=== PATIENT | male | born 1965 | race Caucasian/White ===

== ENCOUNTER 2017-04-28 17:09 | Observation (INO) | payer OTHER ==
[2017-04-28 18:57] LABS: Absolute Lymphocytes (CBC) 3.4 K/uL (0.7-4.9); Basophils % 0.7 % (0-1.3); Eosinophils % 1.2 % (0-4.4); Hematocrit 41.8 % (39.6-49.0); MCH 29.1 pg (27.0-35.0); MCV 87.2 fL (80-100); MPV 8.4 fL (7.6-11.3); Monocytes % 8.9 % (3.3-12.3); RBC Red Blood Cell Count 4.79 M/uL (4.33-5.43)
[2017-04-28 19:08] LABS: Protime INR 1.03
--- NOTE | 2017-04-28 19:17 | RAD REPORT ---
EXAM DESCRIPTION: RAD - Chest Single View - 04/28/2017 6:26 pm CLINICAL HISTORY: Chest pain. COMPARISON: 11/25/2009 FINDINGS: Portable technique limits examination quality. The lungs are grossly clear. The heart is normal in size. No displaced fractures. IMPRESSION: No acute intrathoracic process suspected.
[2017-04-28] MEDS ORDERED: ONDANSETRON 4 MG/2 ML VIAL ONE (21:21)
[2017-04-28] MEDS ORDERED: MORPHINE 4 MG/ML SYR ONE ×2 (21:21→23:57)
[2017-04-28 21:29] LABS: Urine Blood NEGATIVE (NEG); Urine Glucose NEGATIVE (NEG); Urine Protein NEGATIVE (NEG); Urine Specific Gravity 1.025 (1.005-1.030)
[2017-04-28] MEDS ORDERED: ASPIRIN 81 MG CHEWABLE TABLET ONE (21:58)
[2017-04-28 22:13] LABS: Albumin 4.3 g/dL (3.2-5.5); Bilirubin Direct 0.1 mg/dL (0-0.2); Bilirubin Total 0.6 mg/dL (0.3-1.2); CKMB Creatine Kinase MB 2.1 ng/ml (0.3-4.0); Magnesium 1.8 mg/dL (1.8-2.5); Potassium 3.4 mEq/L (3.6-5.0); Protein, Total 7.3 g/dL (6.0-8.3)
--- NOTE | 2017-04-28 23:34 | EDPHYS ---
Physician Documentation [facility] Name: Ellis Girard Age: 51 yrs Sex: Male : 1965 Arrival Date: 04/28/2017 Time: 17:12 Bed 5 Private MD: Teto Callahan T ED Physician Palomo Cortes HPI: 04/28 18:17 This 51 yrs old Male presents to ER via Ambulatory with complaints of Chest snw Pain, High Blood Pressure. 18:17 Onset: The symptoms/episode began/occurred 1.5 week(s) ago, and became persistent. snw Associated signs and symptoms: Pertinent positives: insomnia. Modifying factors: the patient symptoms are aggravated by nothing. The patient has experienced a previous episode. The patient has not recently seen a physician. Hx of MVP. Historical: - Allergies: 17:22 Iodine; hj - Home Meds: 17:22 montelukast 10 mg oral tab 1 tab once daily [Active]; etodolac 500 mg Oral tab 1 tab 2 hj times per day [Active]; diazepam 5 mg Oral tab 1 tab nightly [Active]; allopurinol 300 mg Oral tab 1 tab once daily [Active]; gabapentin 600 mg oral tab 1 tab 3 times per day [Active]; lisinopril-hydrochlorothiazide 10-12.5 mg oral tab 1 tab once daily [Active]; - PMHx: 17:22 mitral valve prolapse; Hypertension; Sleep Apnea; hj - PSHx: 17:22 Hernia repair; rotator cuff BL; neck; hj - Immunization history:: Adult Immunizations up to date, Last tetanus immunization: up to date Flu vaccine is not up to date. - Social history:: Smoking status: Patient/guardian denies using tobacco, never smoked, Patient/guardian denies using alcohol. ROS: 18:16 Constitutional: Negative for fever, chills, and weight loss, Eyes: Negative for injury, snw pain, redness, and discharge, ENT: Negative for injury, pain, and discharge, Neck: Negative for injury, pain, and swelling, Abdomen/GI: Negative for abdominal pain, nausea, vomiting, diarrhea, and constipation, Back: Negative for injury and pain, : Negative for injury, bleeding, discharge, and swelling, MS/Extremity: Negative for injury and deformity, Skin: Negative for injury, rash, and discoloration, Neuro: Negative for headache, weakness, numbness, tingling, and seizure. 18:16 Cardiovascular: Positive for chest pain. 18:16 Respiratory: Positive for orthopnea, shortness of breath. Exam: 18:15 Constitutional: This is a well developed, well nourished patient who is awake, alert, snw and in no acute distress. Head/Face: Normocephalic, atraumatic. Eyes: Pupils equal round and reactive to light, extra-ocular motions intact. Lids and lashes normal. Conjunctiva and sclera are non-icteric and not injected. Cornea within normal limits. Periorbital areas with no swelling, redness, or edema. ENT: Nares patent. No nasal discharge, no septal abnormalities noted. Tympanic membranes are normal and external auditory canals are clear. Oropharynx with no redness, swelling, or masses, exudates, or evidence of obstruction, uvula midline. Mucous membranes moist. Neck: Trachea midline, no thyromegaly or masses palpated, and no cervical lymphadenopathy. Supple, full range of motion without nuchal rigidity, or vertebral point tenderness. No Meningismus. Chest/axilla: Normal chest wall appearance and motion. Nontender with no deformity. No lesions are appreciated. Cardiovascular: Regular rate and rhythm with a normal S1 and S2. No gallops, murmurs, or rubs. Normal PMI, no JVD. No pulse deficits. Tenderness to left midaxillary line. Respiratory: Lungs have equal breath sounds bilaterally, clear to auscultation and percussion. No rales, rhonchi or wheezes noted. No increased work of breathing, no retractions or nasal flaring. Abdomen/GI: Soft, non-tender, with normal bowel sounds. No distension or tympany. No guarding or rebound. No evidence of tenderness throughout. Back: No spinal tenderness. No costovertebral tenderness. Full range of motion. Skin: Warm, dry with normal turgor. Normal color with no rashes, no lesions, and no evidence of cellulitis. MS/ Extremity: Pulses equal, no cyanosis. Neurovascular intact. Full, normal range of motion. Neuro: Awake and alert, GCS 15, oriented to person, place, time, and situation. Cranial nerves II-XII grossly intact. Motor strength 5/5 in all extremities. Sensory grossly intact. Cerebellar exam normal. Normal gait. Vital Signs: 17:23 BP 117 / 71; Pulse 95; Resp 18; Temp 97.8(O); Pulse Ox 97% on R/A; Weight 166.01 kg; hj Height 6 ft. 4 in. (193.04 cm); Pain 5/10; 18:15 BP 128 / 80; Pulse 90; Resp 16 S; Pulse Ox 96% on R/A; jl7 19:15 BP 131 / 91; Pulse 84; Resp 18 S; Pulse Ox 99% on R/A; Pain 5/10; ea 20:00 BP 133 / 80; Pulse 81; Resp 19 S; Pulse Ox 99% on R/A; ea 21:00 BP 138 / 87; Pulse 81; Resp 20 S; Pulse Ox 99% on R/A; ea 22:03 BP 128 / 74; Pulse 81; Resp 18; Pulse Ox 98% on R/A; ea 22:34 BP 144 / 82; Pulse 77; Resp 18 S; Pulse Ox 97% on R/A; ea 23:30 BP 132 / 81; Pulse 76; Resp 18; Pulse Ox 97% on R/A; ea 04/29 00:30 BP 132 / 81; Pulse 76; Resp 18 S; Pulse Ox 99% on R/A; ea 01:00 BP 131 / 74; Pulse 81; Resp 18; Pulse Ox 99% on R/A; ea 04/28 17:23 Body Mass Index 44.55 (166.01 kg, 193.04 cm) hj MDM: 04/28 18:10 Patient medically screened. snw 23:34 Data reviewed: vital signs, nurses notes. Data interpreted: Pulse oximetry: on room air snw is 97 %. Interpretation: normal. Counseling: I had a detailed discussion with the patient and/or guardian regarding: the historical points, exam findings, and any diagnostic results supporting the discharge/admit diagnosis, the presence of at least one elevated blood pressure reading (>120/80) during this emergency department visit, lab results, radiology results, the need for further work-up and treatment in the hospital. Physician consultation: Saeed Henson MD was called at 23:35, was contacted at 23:35, regarding admission, to the telemetry unit. 04/28 18:09 Order name: Basic Metabolic Panel snw 04/28 18:09 Order name: BNP [facility] 04/28 18:09 Order name: CBC with Diff [facility] 04/28 18:09 Order name: Ckmb [facility] 04/28 18:09 Order name: CPK [facility] 04/28 18:09 Order name: LFT's [facility] 04/28 18:09 Order name: Magnesium [facility] 04/28 18:09 Order name: PT-INR [facility] 04/28 18:09 Order name: Ptt, Activated [facility] 04/28 18:09 Order name: Troponin (emerg Dept Use Only) [facility] 04/28 18:59 Order name: CBC with Automated Diff; Complete Time: 19:05 EDMS 04/28 19:12 Order name: Protime (+INR); Complete Time: 19:26 EDMS 04/28 19:12 Order name: PTT, Activated Partial Thromb; Complete Time: 19:26 EDMS 04/28 19:27 Order name: BNP B-Type Natriuretic Peptide; Complete Time: 19:27 EDMS 04/28 18:09 Order name: XRAY Chest (1 view) [facility] 04/28 19:18 Order name: RAD; Complete Time: 19:26 EDMS 04/28 20:50 Order name: Urine Dipstick--Ancillary (enter results) 2 04/28 21:30 Order name: Urine Dipstick-Ancillary; Complete Time: 21:37 EDMS 04/28 21:59 Order name: Troponin (Emerg Dept Use Only); Complete Time: 22:08 EDMS 04/28 22:11 Order name: Basic Metabolic Panel; Complete Time: 23:07 EDMS 04/28 22:13 Order name: Liver (Hepatic) Function; Complete Time: 23:07 EDMS 04/28 22:13 Order name: CKMB Creatine Kinase MB; Complete Time: 23:07 EDMS 04/28 22:13 Order name: Magnesium; Complete Time: 23:07 EDMS 04/28 23:07 Order name: Creatine Phosphokinase; Complete Time: 23:07 EDMS 04/28 23:10 Order name: Troponin (emerg Dept Use Only) [facility] 04/29 00:18 Order name: Troponin (Emerg Dept Use Only); Complete Time: 00:19 EDMS 04/28 17:28 Order name: EKG; Complete Time: 17:29 04/28 18:09 Order name: Cardiac monitoring; Complete Time: 18:14 snw 04/28 18:09 Order name: EKG - Nurse/Tech; Complete Time: 18:14 snw 04/28 18:09 Order name: IV Saline Lock; Complete Time: 18:45 snw 04/28 18:09 Order name: Labs collected and sent; Complete Time: 18:14 snw 04/28 18:09 Order name: O2 Per Protocol; Complete Time: 18:14 snw 04/28 18:09 Order name: O2 Sat Monitoring; Complete Time: 18:14 snw 04/28 18:09 Order name: Urine Dipstick-Ancillary (obtain specimen); Complete Time: 21:00 snw 04/28 23:10 Order name: Repeat Cardiac Enzymes at: now; Complete Time: 23:48 snw 04/28 23:10 Order name: EKG; Complete Time: 23:10 snw Administered Medications: 21:05 Drug: morphine 4 mg Route: IVP; Site: right forearm; ea 21:44 Follow up: Response: No adverse reaction; Pain is decreased ea 21:05 Drug: Zofran 4 mg Route: IVP; Site: right forearm; ea 21:45 Follow up: Response: No adverse reaction ea 21:42 Drug: Aspirin Chewable Tablet 324 mg Route: PO; ea 23:13 Follow up: Response: No adverse reaction ea 23:46 Drug: morphine 4 mg Route: IVP; Site: right hand; ea 04/29 01:10 Follow up: Response: No adverse reaction ea Disposition: 07:16 Co-signature as Attending Physician, Palomo Cortes MD I agree with the assessment and kdr plan of care. Disposition: 04/28/17 23:33 Hospitalization ordered by Saeed Henson for Observation. Preliminary diagnosis is Chest pain, unspecified. - Bed requested for Telemetry/MedSurg (observation). - Status is Observation. ea - Condition is Stable. - Problem is new. - Symptoms are unchanged. UTI on Admission? No Signatures: Dispatcher [employer] Erica Cason RN RN kl Rittger, Kevin, MD MD kdr Therrien, Shelly, ESL TEACHER-C ESL TEACHER-Csnw Quang Gomez RN RN Anette Boyle RN RN ea Bryson, James jtb
--- NOTE | 2017-04-28 23:34 | ER ---
Nurse's Notes [facility] Name: Ellis Girard Age: 51 yrs Sex: Male : 1965 Arrival Date: 04/28/2017 Time: 17:12 Bed 5 Private MD: Teto Callahan T Diagnosis: Chest pain, unspecified Presentation: 04/28 17:16 Presenting complaint: Patient states: i have chest pain for more than week now on and hj off, i have hx of mitral valve prolapse, i am short of breath radhames when i walk; reports non radiating pain;. Transition of care: patient was not received from another setting of care. Onset of symptoms was April 28, 2017. Care prior to arrival: None. 17:16 Method Of Arrival: Ambulatory 17:16 Acuity: NATACHA 3 hj Triage Assessment: 17:22 General: Appears in no apparent distress. uncomfortable, Behavior is calm, cooperative, hj appropriate for age. Pain: Complains of pain in chest. Cardiovascular: Capillary refill < 3 seconds Patient's skin is warm and dry. Historical: - Allergies: 17:22 Iodine; hj - Home Meds: 17:22 montelukast 10 mg oral tab 1 tab once daily [Active]; etodolac 500 mg Oral tab 1 tab 2 hj times per day [Active]; diazepam 5 mg Oral tab 1 tab nightly [Active]; allopurinol 300 mg Oral tab 1 tab once daily [Active]; gabapentin 600 mg oral tab 1 tab 3 times per day [Active]; lisinopril-hydrochlorothiazide 10-12.5 mg oral tab 1 tab once daily [Active]; - PMHx: 17:22 mitral valve prolapse; Hypertension; Sleep Apnea; hj - PSHx: 17:22 Hernia repair; rotator cuff BL; neck; hj - Immunization history:: Adult Immunizations up to date, Last tetanus immunization: up to date Flu vaccine is not up to date. - Social history:: Smoking status: Patient/guardian denies using tobacco, never smoked, Patient/guardian denies using alcohol. Screenin:15 Abuse screen: Denies threats or abuse. Denies injuries from another. Nutritional jl7 screening: No deficits noted. Tuberculosis screening: No symptoms or risk factors identified. 18:20 Fall Risk None identified. jtb Assessment: 17:22 Pain: Pain does not radiate. Pain began more than a week;. hj 18:20 General: Appears in no apparent distress. uncomfortable, Behavior is calm, cooperative, jtb appropriate for age. Pain: Complains of pain in mid-sternal area Pain does not radiate. Pain currently is 5 out of 10 on a pain scale. at worst was 7 out of 10 on a pain scale. Quality of pain is described as pressure, Pain began " A couple weeks ago." Is continuous. Neuro: Level of Consciousness is awake, alert, obeys commands, Oriented to person, place, time, situation. Cardiovascular: Heart tones S1 S2 present Patient's skin is warm and dry. Respiratory: Airway is patent Respiratory effort is even, unlabored, Respiratory pattern is regular, symmetrical, Breath sounds are clear bilaterally. GI: No signs and/or symptoms were reported involving the gastrointestinal system. : No signs and/or symptoms were reported regarding the genitourinary system. EENT: No signs and/or symptoms were reported regarding the EENT system. Derm: Skin is intact, Skin is pink, warm \\T\\ dry. Musculoskeletal: Reports weakness in Generalized. 19:10 General: Appears uncomfortable, Behavior is calm, cooperative, appropriate for age. ea Pain: Complains of pain in mid-sternal area Pain does not radiate. Pain currently is 5 out of 10 on a pain scale. Quality of pain is described as pressure, Is continuous. Neuro: Level of Consciousness is awake, alert, obeys commands, Oriented to person, place, time, situation. Cardiovascular: Heart tones S1 S2 present Patient's skin is warm and dry. Respiratory: Airway is patent Respiratory effort is even, unlabored, Respiratory pattern is regular, symmetrical, Breath sounds are clear bilaterally. GI: No signs and/or symptoms were reported involving the gastrointestinal system. Abdomen is round Bowel sounds present X 4 quads. EENT: No signs and/or symptoms were reported regarding the EENT system. Derm: Skin is intact, Skin is pink, warm \\T\\ dry. 20:45 Reassessment: Patient and/or family updated on plan of care and expected duration. Pain ea level reassessed. Patient is alert, oriented x 3, equal unlabored respirations, skin warm/dry/pink. 21:06 Reassessment: Patient and/or family updated on plan of care and expected duration. Pain ea level reassessed. Patient is alert, oriented x 3, equal unlabored respirations, skin warm/dry/pink. 21:27 Reassessment: Pt. reports, "The pain medication has definitely helped; 03/20.". ar4 22:03 Reassessment: Patient and/or family updated on plan of care and expected duration. Pain ea level reassessed. Patient is alert, oriented x 3, equal unlabored respirations, skin warm/dry/pink. 22:34 Reassessment: Patient and/or family updated on plan of care and expected duration. Pain ea level reassessed. Patient is alert, oriented x 3, equal unlabored respirations, skin warm/dry/pink. Patient states feeling better. 04/29 00:04 Reassessment: semi-Hernandez's position, talking with spouse; provided a warm blanket to ar4 spouse at bedside;. 01:06 Reassessment: Patient and/or family updated on plan of care and expected duration. Pain ea level reassessed. Patient is alert, oriented x 3, equal unlabored respirations, skin warm/dry/pink. Patient states symptoms have improved. 01:35 Reassessment: Report called to Irma STEVENSON. ea 01:40 Reassessment: Patient and/or family updated on plan of care and expected duration. Pain ea level reassessed. Patient is alert, oriented x 3, equal unlabored respirations, skin warm/dry/pink. Patient denies pain at this time. Patient states feeling better. Vital Signs: 04/28 17:23 BP 117 / 71; Pulse 95; Resp 18; Temp 97.8(O); Pulse Ox 97% on R/A; Weight 166.01 kg; hj Height 6 ft. 4 in. (193.04 cm); Pain 5/10; 18:15 BP 128 / 80; Pulse 90; Resp 16 S; Pulse Ox 96% on R/A; jl7 19:15 BP 131 / 91; Pulse 84; Resp 18 S; Pulse Ox 99% on R/A; Pain 5/10; ea 20:00 BP 133 / 80; Pulse 81; Resp 19 S; Pulse Ox 99% on R/A; ea 21:00 BP 138 / 87; Pulse 81; Resp 20 S; Pulse Ox 99% on R/A; ea 22:03 BP 128 / 74; Pulse 81; Resp 18; Pulse Ox 98% on R/A; ea 22:34 BP 144 / 82; Pulse 77; Resp 18 S; Pulse Ox 97% on R/A; ea 23:30 BP 132 / 81; Pulse 76; Resp 18; Pulse Ox 97% on R/A; ea 04/29 00:30 BP 132 / 81; Pulse 76; Resp 18 S; Pulse Ox 99% on R/A; ea 01:00 BP 131 / 74; Pulse 81; Resp 18; Pulse Ox 99% on R/A; ea 04/28 17:23 Body Mass Index 44.55 (166.01 kg, 193.04 cm) ED Course: 04/28 17:12 Patient arrived in ED. mr 17:12 Teto Callahan MD is Private Physician. mr 17:17 Triage completed. hj 17:22 Arm band placed on right wrist. hj 17:23 Patient maintains SpO2 saturation greater than 95% on room air. hj 17:35 EKG done, by orthodontic lab technician. reviewed by Palomo Cortes MD. tc 18:[address] RN is Primary Nurse. jl7 18:08 Kaylyn Nazario FNP-C is PHCP. snw 18:08 Palomo Cortes MD is Attending Physician. snw 18:15 Patient has correct armband on for positive identification. Placed in gown. Bed in low jl7 position. Call light in reach. Side rails up X 1. housing assistant property manager on. Pulse ox on. NIBP on. 18:20 Missed attempt(s): 20 gauge in left forearm. 22 gauge in left forearm. jtb 18:26 X-ray completed. Portable x-ray completed in exam room. Patient tolerated procedure la2 well. 18:45 Initial lab(s) drawn, by me, sent to lab. Inserted saline lock: 20 gauge in right hand, jl7 using aseptic technique. Blood collected. 19:01 Report given to ELVA Cheema. jl7 20:21 Urine collected: clean catch specimen, clear. ar4 21:10 Initial lab(s) drawn, by me, sent to lab. ar4 23:33 Saeed Henson MD is Hospitalizing Provider. snw 04/29 00:04 No provider procedures requiring assistance completed. Patient admitted, IV remains in ea place. Administered Medications: 04/28 21:05 Drug: morphine 4 mg Route: IVP; Site: right forearm; ea 21:44 Follow up: Response: No adverse reaction; Pain is decreased ea 21:05 Drug: Zofran 4 mg Route: IVP; Site: right forearm; ea 21:45 Follow up: Response: No adverse reaction ea 21:42 Drug: Aspirin Chewable Tablet 324 mg Route: PO; ea 23:13 Follow up: Response: No adverse reaction ea 23:46 Drug: morphine 4 mg Route: IVP; Site: right hand; ea 04/29 01:10 Follow up: Response: No adverse reaction ea Outcome: 04/28 19:01 Attestation : I agree with everything documented by Wojciech Baird, Student Nurse. jl7 23:33 Decision to Hospitalize by Provider. liz 04/29 00:04 Instructed on the need for admit. ea 01:50 Admitted to Med/surg accompanied by tech, room 216, Report called to Irma STEVENSON ea 01:50 Condition: stable 01:52 Patient left the ED. ea Signatures: Kaylyn Nazario, BRASS BUFFER-C BRASS BUFFER-Csnw Nallely Zarco mr Cespedes, Pricilla, physical therapy attendant EKG Ttc Quang Gomez RN Medhat Castle RN RN allison7 Anette Boyle RN Rosa Galan ea, James jtb Roberts, Amber ar4 Corrections: (The following items were deleted from the chart) 04/28 17:27 17:23 166.01 kg; Height 6 ft. 4 in.; BMI: 44.5; Pain 5/10; hj hj 17:28 17:23 Pulse 95bpm; Resp 18bpm; Pulse Ox 97% RA; Temp 97.8F Oral; 166.01 kg; Height 6 hj ft. 4 in.; BMI: 44.5; Pain 5/10; hj 21:05 21:04 Zofran 4 mg IVP in right antecubital winnie zhou
--- NOTE | 2017-04-29 00:56 | P.HP ---
Certification for Inpatient Patient admitted to: Observation With expected LOS: <2 Midnights Practitioner: I am a practitioner with admitting privileges, knowledge of patient current condition, hospital course, and medical plan of care. Services: Services provided to patient in accordance with Admission requirements found in Title 42 Section 412.3 of the Code of Federal Regulations Patient History Date of Service: 04/29/17 Reason for admission: chest pain History of Present Illness: Mr Girard is a 51 years old male with history of HTN, morbid obesity, sleep apnea, mitral valve prolapse, with recurrent episodes of chest pain. The patient came to ED today since has has had on and off chest pain for about 2 weeks, however, today, the chest pain was more intense, 6/10, and was associated with SOB. The pain is described as pressure like, no radiated. He denied nausea, diaphoresis or palpitations. Initial work up in ED shows normal troponin I level, EKG nos acute ST-T changes. Allergies iodine Allergy (Unverified 10/19/14 07:42) Unknown - Past Medical/Surgical History -: mitral valve prolapse -: HTN -: sleep apnea -: morbid obesity -: Hernia repair; rotator cuff BL; neck - Family History Father History Unknown: Yes -: Heart disease - Social History Smoking Status: Former smoker Alcohol use: No CD- Drugs: No Place of Residence: Home Review of Systems 10-point ROS is otherwise unremarkable Physical Examination - Physical Exam General: Alert, In no apparent distress HEENT: Atraumatic, PERRLA, Mucous membr. moist/pink, EOMI, Sclerae nonicteric Neck: Supple, 2+ carotid pulse no bruit, No LAD, Without JVD or thyroid abnormality Respiratory: Clear to auscultation bilaterally, Normal air movement Cardiovascular: Regular rate/rhythm, Normal S1 S2 Gastrointestinal: Normal bowel sounds, No tenderness Musculoskeletal: No tenderness Integumentary: No rashes Neurological: Normal speech, Normal strength at 5/5 x4 extr, Normal tone, Normal affect Lymphatics: No axilla or inguinal lymphadenopathy - Studies Laboratory Data (last 24 hrs) 04/28/17 21:10: Sodium 136, Potassium 3.4 L, BUN 17, Creatinine 0.92, Glucose 91 , Magnesium 1.8, Total Bilirubin 0.6, AST 23, ALT 25, Alkaline Phosphatase 53 04/28/17 18:41: PT 12.2, INR 1.03, APTT 29.7 04/28/17 18:41: WBC 11.6 H, Hgb 13.9, Hct 41.8, Plt Count 343 04/28/17 18:41: B-Natriuretic Peptide < 10 Assessment and Plan - Problems (Diagnosis) (1) Chest pain Current Visit: Yes Status: Acute Qualifiers: Chest pain type: precordial pain Qualified Code(s): R07.2 - Precordial pain (2) Morbid obesity Current Visit: Yes Status: Acute (3) HTN (hypertension) Current Visit: Yes Status: Acute Qualifiers: Hypertension type: essential hypertension Qualified Code(s): I10 - Essential (primary) hypertension (4) Sleep apnea Current Visit: Yes Status: Acute Qualifiers: Sleep apnea type: obstructive Qualified Code(s): G47.33 - Obstructive sleep apnea (adult) (pediatric) - Plan Mr Girard will be admitted to the hospital due to chest pain in order to rule out ACS. So far Trop I and EKG are within normal limits. Will order serial cardiac anzymes and EKG. Consult Cardiology team. - Advance Directives Does patient have a Living Will: No Does patient have a Durable POA for Healthcare: No - Code Status/Comfort Care Code Status Assessed: Yes Code Status: Full Code
[2017-04-29] MEDS ORDERED: ONDANSETRON 4 MG/2 ML VIAL IV PRN (01:26)
[2017-04-29] MEDS ORDERED: TRAMADOL HCL 50 MG TAB PO PRN (04:48)
--- NOTE | 2017-04-29 07:26 | EKG ---
Test Date: 2017-04-28 Test Time: 17:23:45 Boxing Instructor: DOMINGO MEASUREMENT RESULTS: Intervals: Rate: 95 WI: 198 QRSD: 90 QT: 346 QTc: 434 [place]: P: 33 WI: 198 QRS: 84 T: 58 INTERPRETIVE STATEMENTS: Normal sinus rhythm with sinus arrhythmia Normal ECG Compared to ECG 11/12/2005 14:19:52 No significant changes Electronically Signed On 04-29-17 07:25:27 CDT by Ariel John
[2017-04-29] MEDS ORDERED: GABAPENTIN 300 MG CAP PO SCH (09:00)
[2017-04-29] MEDS ORDERED: ALLOPURINOL 300 MG TAB PO SCH (09:00)
[2017-04-29] MEDS ORDERED: ENOXAPARIN 40 MG/0.4 ML SQ SCH (09:00)
[2017-04-29] MEDS ORDERED: ASPIRIN 81 MG CHEWABLE TABLET PO SCH (09:00)
[2017-04-29] MEDS ORDERED: LISINOPRIL 10 MG TAB PO SCH (09:00)
--- NOTE | 2017-04-29 09:36 | EKG ---
Test Date: 2017-04-28 Test Time: 23:33:07 Supervisor Finishing Room: SARAI MEASUREMENT RESULTS: Intervals: Rate: 77 DE: 224 QRSD: 88 QT: 374 QTc: 423 [place]: P: 26 DE: 224 QRS: 72 T: 45 INTERPRETIVE STATEMENTS: Sinus rhythm with 1st degree AV block Otherwise normal ECG Compared to ECG 04/28/2017 17:23:45 First degree AV block now present Sinus arrhythmia no longer present Electronically Signed On 04-29-17 09:35:45 CDT by Pierce Schilling
--- NOTE | 2017-04-29 09:43 | ECHO ---
HEIGHT: 6 ft 4 in WEIGHT: 366 lb 0 oz DATE OF STUDY: 04/29/[address]: Saeed Caal MD 2-DIMENSIONAL: YES M.MODE: YES DOPPLER: YES COLOR FLOW: YES TDS: NO PORTABLE: NO DEFINITY: NO BUBBLE STUDY: NO DIAGNOSIS: CHEST PAIN CARDIAC HISTORY: CATHERIZATION: NO SURGERY: NO PROSTHETIC VALVE: NO PACEMAKER: NO MEASUREMENTS (cm) DIASTOLIC (NORMALS) SYSTOLIC (NORMALS) IVSd 1.2 (0.6-1.2) LA Diam 4.0 (1.9-4.0) LVEF 68% LVIDd 4.8 (3.5-5.7) LVIDs 2.9 (2.0-3.5) %FS 38% LVPWd 1.1 (0.6-1.2) Ao Diam 3.8 (2.0-3.7) 2 DIMENSIONAL ASSESSMENT: RIGHT ATRIUM: NORMAL LEFT ATRIUM: NORMAL RIGHT VENTRICLE: NORMAL LEFT VENTRICLE: NORMAL TRICUSPID VALVE: NORMAL MITRAL VALVE: NORMAL PULMONIC VALVE: NORMAL AORTIC VALVE: NORMAL PERICARDIAL EFFUSION: NONE AORTIC ROOT: NORMAL LEFT VENTRICULAR WALL MOTION: NORMAL DOPPLER/COLOR FLOW: MILD TRICUSPID REGURGITATION. COMMENTS: MILD TRICUSPID REGURGITATION. NORMAL RIGHT VENTRICULAR SYSTOLIC PRESSURE. NO WALL MOTION ABNORMALITY. NORMAL LEFT VENTRICULAR SIZE AND FUNCTION. NO EFFUSION. TECHNOLOGIST: Gabe EVANS
--- NOTE | 2017-04-29 10:14 | P.DS ---
Admission Date: 04/28/17 Discharge Date: 04/29/17 Primary Care Provider: Dr. Callahan Disposition: ROUTINE DISCHARGE Discharge Condition: GOOD Reason for Admission: chest pain Consultations: Cardiology-Dr. Schilling Procedures: ECHO: EF-68%. Mild tricuspid regurgitation noted. Normal right ventricular systolic pressure. No wall motion abnormality. Normal left ventricular size and function. No effusion noted. - Problems (1) GERD (gastroesophageal reflux disease) Onset Date: 04/29/17 Current Visit: Yes Status: Suspected Qualifiers: Esophagitis presence: esophagitis presence not specified Qualified Code(s) : K21.9 - Gastro-esophageal reflux disease without esophagitis (2) Chronic pain Onset Date: 04/29/17 Current Visit: Yes Status: Chronic Qualifiers: Chronic pain type: chronic pain syndrome Qualified Code(s): G89.4 - Chronic pain syndrome (3) Gout Onset Date: 04/29/17 Current Visit: Yes Status: Chronic Qualifiers: Gout site: unspecified site Gout etiology: unspecified cause Chronicity: chronic Presence of tophus: without tophus Qualified Code(s): M1A.9XX0 - Chronic gout, unspecified, without tophus (tophi) (4) Chest pain Onset Date: 04/29/17 Current Visit: Yes Status: Acute Qualifiers: Chest pain type: precordial pain Qualified Code(s): R07.2 - Precordial pain (5) HTN (hypertension) Onset Date: 04/29/17 Current Visit: Yes Status: Chronic Qualifiers: Hypertension type: essential hypertension Qualified Code(s): I10 - Essential (primary) hypertension (6) Morbid obesity Onset Date: 04/29/17 Current Visit: Yes Status: Chronic (7) Sleep apnea Onset Date: 04/29/17 Current Visit: Yes Status: Chronic Qualifiers: Sleep apnea type: obstructive Qualified Code(s): G47.33 - Obstructive sleep apnea (adult) (pediatric) (8) Hypertriglyceridemia Current Visit: Yes Status: Acute Brief History of Present Illness: 51-year-old male presented emergency room with chest pain. Patient with history of hypertension, obstructive sleep apnea, gout, and chronic pain. Patient was evaluated emergency room. Initial cardiac enzymes unremarkable. Patient was admitted for further evaluation. Hospital Course: During his stay chest pain resolved. Cardiac enzymes were unremarkable. Patient was evaluated by cardiology. Cardiology felt no need for intervention was needed. An echocardiogram showed normal ejection fraction of 68%. Otherwise unremarkable. At discharge patient will continue with aspirin 81 mg daily. Recommendation is for the patient to follow up with cardiology as an outpatient to further monitor. Patient will likely require outpatient stress test or heart catheterization. Chest pain may be GI related. Patient likely has GERD. He is taking nonsteroidal anti-inflammatories. Recommendation is to discontinue nonsteroidal anti-inflammatories if possible. Patient at discharge will start Protonix 40 mg 1 pill once daily. Recommendation is for the patient to follow up with GI as an outpatient to further monitor. Patient may require EGD/colonoscopy as an outpatient. Patient has hypertension. This remained stable during his stay. At discharge patient will continue with lisinopril/hydrochlorothiazide 10/12.5 mg 1 pill daily. Recommendation is to maintain blood pressures less 150/80. Further adjustment can be done by his PCP. Patient has obstructive sleep apnea. Patient will continue with CPAP at night. Patient with history of chronic pain and gout. Patient will continue with gabapentin 600 mg 1 pill 3 times a day. Patient also takes allopurinol 300 mg daily. Recommendation is to not use nonsteroidal anti-inflammatories if possible, this includes Etolodac. Patient was found to have hypertriglyceridemia. Total cholesterol 186, total triglycerides 361, LDL 81. Recommendation to continue with lifestyle modification education and diet. This will need to be monitored as an outpatient. May need to consider medication if no improvement. This can be further addressed by his PCP. Patient is morbidly obese. Lifestyle modification education will be provided. Vital Signs/Physical Exam: Temp Pulse Resp BP Pulse Ox 97.4 F 82 17 133/70 95 04/29/17 08:00 04/29/17 08:00 04/29/17 08:00 04/29/17 08:00 04/29/17 08:00 General: Alert, In no apparent distress, Oriented x3, Cooperative HEENT: Atraumatic, Mucous membr. moist/pink Neck: Supple, No Thyromegaly Respiratory: Clear to auscultation bilaterally, Normal air movement Cardiovascular: Normal pulses, Regular rate/rhythm Gastrointestinal: Normal bowel sounds, Soft and benign, Non-distended, No tenderness, No masses, No rebound, No guarding Musculoskeletal: No contractures, No erythema, No tenderness, No warmth Integumentary: No tenderness/swelling, No erythema, No warmth, No cyanosis Neurological: Normal speech, Normal strength at 5/5 x4 extr, Normal tone, Normal affect Lymphatics: No axilla or inguinal lymphadenopathy Laboratory Data at Discharge: WBC 11.6 K/uL (4.3-10.9) H 04/28/17 18:41 Hgb 13.9 g/dL (13.6-17.9) 04/28/17 18:41 Hct 41.8 % (39.6-49.0) 04/28/17 18:41 Plt Count 343 K/uL (152-406) 04/28/17 18:41 PT 12.2 SECONDS (9.5-12.5) 04/28/17 18:41 INR 1.03 04/28/17 18:41 APTT 29.7 SECONDS (24.3-36.9) 04/28/17 18:41 Sodium 136 mEq/L (135-145) 04/28/17 21:10 Potassium 3.4 mEq/L (3.6-5.0) L 04/28/17 21:10 BUN 17 mg/dL (6-20) 04/28/17 21:10 Creatinine 0.92 mg/dL (0.61-1.24) 04/28/17 21:10 Glucose 91 mg/dL (65-120) 04/28/17 21:10 Magnesium 1.8 mg/dL (1.8-2.5) 04/28/17 21:10 Total Bilirubin 0.6 mg/dL (0.3-1.2) 04/28/17 21:10 AST 23 IU/L (10-42) 04/28/17 21:10 ALT 25 IU/L (10-60) 04/28/17 21:10 Alkaline Phosphatase 53 IU/L (42-121) 04/28/17 21:10 Troponin I < 0.03 ng/mL (<0.03) 04/29/17 01:52 B-Natriuretic Peptide < 10 pg/ml (<=100) 04/28/17 18:41 Home Medications: Allopurinol 300 mg PO DAILY 04/29/17 Aspirin [Aspirin EC 81 MG] 81 mg PO DAILY #30 tablet.dr 04/29/17 Etodolac [Lodine Xl] 500 mg PO BID 04/29/17 Gabapentin 600 mg PO TID 04/29/17 Lisinopril/Hydrochlorothiazide [Lisinopril-Hctz 10-12.5 mg Tab] 1 each PO DAILY 04/29/17 Montelukast [Singulair*] 10 mg PO DAILY 04/29/17 Pantoprazole [Protonix Tab] 40 mg PO DAILY #30 tab 04/29/17 Zolpidem Tartrate [Ambien] 10 mg PO BEDTIME 04/29/17 New Medications: Aspirin [Aspirin EC 81 MG] 81 mg PO DAILY #30 tablet. Pantoprazole [Protonix Tab] 40 mg PO DAILY #30 tab Patient Discharge Instructions: 1. Patient will need a follow up with his PCP in 1 week to follow up this hospitalization. 2. Patient presented with chest pain. Cardiac enzymes unremarkable. Patient evaluated by Cardiology. No intervention was needed. Echocardiogram showed a normal ejection fraction of 60 %. No wall motion abnormality noted. No effusion noted. Recommendation is for the patient to continue with aspirin 81 mg daily. Recommendation is for the patient to follow up with cardiology as an outpatient to further monitor. Patient will likely require outpatient stress test or heart catheterization. Chest pain may be GI related. 3. Patient likely has GERD. He is taking nonsteroidal anti-inflammatories. Recommendation is to discontinue nonsteroidal anti-inflammatories if possible. Patient at discharge will start Protonix 40 mg 1 pill once daily. Recommendation is for the patient to follow up with GI as an outpatient to further monitor. Patient may require EGD/ colonoscopy as an outpatient. 4. Patient has hypertension. At discharge patient will continue with lisinopril/hydrochlorothiazide 10/12.5 mg 1 pill daily. Recommendation is to maintain blood pressures less 150/80. Further adjustment can be done by his PCP. 5. Patient has obstructive sleep apnea. Patient will continue with CPAP at night. 6. Patient with history of chronic pain and gout. Patient will continue with gabapentin 600 mg 1 pill 3 times a day. Patient also takes allopurinol 300 mg daily. Recommendation is to not use nonsteroidal anti-inflammatories if possible, this includes Etolodac. 7. Lifestyle modification education will be provided. 8. Patient with elevated triglycerides. This can be reassessed. Patient continue with lifestyle modification education and diet. Recommendation to recheck fasting lipid panel in 1 month. If still elevated patient may require medication. This can be further addressed by his PCP. Diet: AHA Activity: Ad alberto Time spent managing pt's care (in minutes): 55
[2017-04-29] MEDS ORDERED: ATORVASTATIN 40 MG TAB PO SCH (21:00)
--- NOTE | 2017-05-02 12:19 | CON ---
Date of Consultation: 04/29/2017 I saw the patient on 04/29/2017. Reason For Consultation: Hypertension and chest pain. History Of Present Illness: Mr. Troncoso is a 51-year-old male who has a history of hypertension, mi tral valve prolapse, gout, asthma, neuropathy, sleep apnea, morbid obesity. He weighs 366 pounds. H e is allergic to iodine. He came in with cough and chest pain that has been last for 2 to 3 days, hy pertension has ruled out. By the time I saw him, he had a normal EKG and a normal chest x-ray. Pota ssium 3.4 and white count of 11.6, possible blood loss, but the blood work was negative. Allergies: IODINE. Review of Systems: Negative. Social History: Negative. Family History: Negative. Medications: Include Ambien, Lodine, allopurinol, Neurontin, lisinopril hydrochlorothiazide, and Sin gulair. Physical Examination: Vital Signs: Stable. Weight is 366. HEENT: Negative. Neck: Supple. No bruit. Chest: Clear. Cardiac: Exam revealed an irregular rhythm and rate with an S4 gallop. Abdomen: Obese, but benign. Extremities: Revealed trace edema. Diagnostic Data: As stated above. Impression And Plan: 1.Atypical chest pain, most likely musculoskeletal or gastroesophageal in nature. Echocardiogram is pending. We will see what that shows before discharging him. His weight would not allow him to hav e a stress Cardiolite or a Lexiscan. I think if his symptoms become more suggestive of a cardiac iss ue, a catheterization is the best thing to do. At this point. I do not believe we are dealing with any acute coronary syndrome. If the echo is normal, he can go home. 2.Hypertension, well controlled. 3.Asthma. 4.Gout. 5.History of neuropathy. 6.Morbid obesity. 7.Sleep apnea. NB/MODL Voice ID: [id number] Report ID: [id number]
== END 2017-04-29 11:25 | disposition home or self-care (01) ==
LOC: ER 17:09 → ERHOLD 23:36 → 2ND 04-29 01:23
PROVIDERS: ADMIT Internal Medicine; ATTEND Internal Medicine
DX: R07.2 Precordial pain (principal); I10 Essential (primary) hypertension; M1A.9XX0 Chronic gout, unspecified, without tophus (tophi); G89.29 Other chronic pain; E66.01 Morbid (severe) obesity due to excess calories; Z68.41 Body mass index [BMI] 40.0-44.9, adult; E78.1 Pure hyperglyceridemia; G47.33 Obstructive sleep apnea (adult) (pediatric); I34.1 Nonrheumatic mitral (valve) prolapse
CPT/HCPCS: 36415; 71045; 80048; 80061; 80076; 81003; 82550; 82553; 83735; 83880; 84443; 84484; 85025; 85610; 85730; 93005; 93306; 99285; G0378; J1650; J2405

== ENCOUNTER 2019-02-27 08:18 | Day surgery (SDC) | payer OTHER ==
[2019-02-23 16:28] LABS: Absolute Lymphocytes (CBC) 3.3 K/uL (0.7-4.9); Basophils % 0.5 % (0-1.3); Hematocrit 38.6 % (39.6-49.0); Lymphocytes % 34.7 % (15.3-44.8); MPV 9.2 fL (7.6-11.3); RBC Red Blood Cell Count 4.46 M/uL (4.33-5.43)
[2019-02-23 16:41] LABS: Potassium 3.4 mmol/L (3.5-5.1)
--- NOTE | 2019-02-24 08:09 | EKG ---
Test Date: 2019-02-23 Test Time: 15:33:42 Crisis Clinician: DEMETRIUS MEASUREMENT RESULTS: Intervals: Rate: 73 AR: 216 QRSD: 98 QT: 372 QTc: 409 Ava: P: 88 AR: 216 QRS: 67 T: 29 INTERPRETIVE STATEMENTS: Sinus rhythm with 1st degree AV block Otherwise normal ECG Compared to ECG 04/28/2017 23:33:07 No significant changes Electronically Signed On 02-24-19 08:07:32 RETANNED LEATHER ROLLER by Pierce Schilling
[2019-02-27] MEDS ORDERED: CEFAZOLIN/SWI 1gm 1 GM/10 ML SYR ONE (09:02)
[2019-02-27] MEDS ORDERED: Ringers Lactate 1,000 ML IV ONE (09:02)
[2019-02-27] MEDS ORDERED: MIDAZOLAM HCL 2 MG/2 ML INJ ONE (09:17)
[2019-02-27] MEDS ORDERED: FENTANYL CITR 100 MCG/2 ML ONE (09:50)
[2019-02-27] MEDS ORDERED: propofoL 200 MG/20 ML VIAL IV ONE (09:50)
[2019-02-27] MEDS ORDERED: LIDOCAINE 2% MPF 5 ML VIAL ONE (09:50)
[2019-02-27] MEDS ORDERED: dexAMETHasone 10 MG/ML VIAL ONE (10:08)
[2019-02-27] MEDS ORDERED: KETOROLAC 30 MG/ML INJ ONE (10:40)
--- NOTE | 2019-02-27 11:00 | P.BOP ---
Preoperative diagnosis: Large right upper thigh tender subQ mass Postoperative diagnosis: same Primary procedure: Excisional biopsy of Large right upper thigh deep subQ mass 22x23 cm Marketing Technology Coordinator: Arnulfo Aguilar Estimated blood loss: <10cc Specimen: mass Findings: Large right upper thigh subQ mass down to fascia Anesthesia: General Complications: None Drain(s): MARI drain Transferred to: Recovery Room Condition: Good
[2019-02-27] MEDS ORDERED: TRAMADOL 37.5mg/APAP 325mg PER TAB ONE (11:53)
[2019-02-27 13:52] VITALS: BP 144/76; TEMP 98.1; O2SAT 96
--- NOTE | 2019-02-27 23:38 | OP ---
Date of Procedure: 02/27/2019 Surgeon: Quang Drew MD [employer] Guard: CAMERON Hogue Preoperative Diagnosis: Large right upper thigh tender subcutaneous mass. Postoperative Diagnosis: Large right upper thigh tender subcutaneous mass. Procedure: Excisional biopsy of a large right upper thigh deep, tender, subcutaneous mass, 22 x 23 c m. Estimated Blood Loss: Less than 10 mL. Specimen: Mass. Findings: A large right upper thigh subcutaneous mass down to the fascia. Anesthesia: General plus local. Drain: MARI #10. Indications: This is a case of a male who came with a large mass, increasing in size and discomfort, giving him tenderness. He wants that excised. The benefits, alternatives, and risks of excision fu lly explained to the patient, which include but are not limited to infection, bleeding, damage to adj acent structures, anesthesia complications, seroma, hematoma, OK, or even . He also understands there is chance of recurrence and need for more surgical intervention depending on the final patholo gy. He understood, signed a consent. The area of concern was marked by me and the patient in the ho lding room. Description Of Procedure: The patient was brought to the operating room, placed in supine position. Anesthesia was done without complication. The right thigh area was prepped and draped in a sterile fashion. A time-out was called. An incision was made over the area of the mass. The incision was c arried down to the subcutaneous tissue, and carefully with the help of blunt dissection, we were able to delineate the margins of this mass. This goes all the way down to fascia of the muscle. Muscle seemed not to be involved, but some of the fascia had to be removed with the specimen. Hemostasis wa s obtained at all times. Irrigation was done. The mass was sent to the pathologist. Due to the lar ge cavity, the patient will have a large seroma area and we think he might leak through the incision. So, we left a MARI drain through a different insertion point, secured it in place with 3-0 nylon. Th en, we closed the area with 3-0 chromic, subcutaneous first, and then joseph. Sponge count and inst rument count were correct. The patient tolerated the procedure well. Patient was sent to recovery i n stable condition. HM/MODL Voice ID: [id number] Report ID: [id number]
--- NOTE | 2019-02-27 23:44 | OP ---
Surgeon: Quang Drew MD Diagnosis: Large right upper thigh tender subcutaneous mass. Procedure: Excisional biopsy of large right upper thigh, deep, tender subcutaneous mass, 22 x 23 cm. Disposition: Home. Activity: As tolerated. No heavy lifting. Discharge Instructions: Follow up in my office in 1 week. Call for appointment [phone]. MARI to [facility] bo. Record output every 24 hours. Medications: See orders. HM/MODL Voice ID: [id number] Report ID: [id number]
== END 2019-02-27 12:55 | disposition home or self-care (01) ==
LOC: OR 08:18
PROVIDERS: ATTEND Surgery
PROC: 0JBL0ZZ Excision of Right Upper Leg Subcutaneous Tissue and Fascia, Open Approach (ICD-10-PCS; principal; 2019-02-27 09:45)
DX: D17.23 Benign lipomatous neoplasm of skin and subcutaneous tissue of right leg (principal)
CPT/HCPCS: 93005; 85025; 80048; 36415; 88304; 11406; J2704; J2250; J3010; J1100; J0690; J7120

== ENCOUNTER 2019-12-26 15:40 | Emergency (ER) | payer BC, OTHER ==
[2019-12-26] MEDS ORDERED: dexAMETHasone 10 MG/ML VIAL ONE (16:57)
[2019-12-26 17:28] LABS: Absolute Lymphocytes (CBC) 0.8 K/uL (0.7-4.9); Basophils % 0.5 % (0-1.3); Hematocrit 40.4 % (39.6-49.0); Lymphocytes % 10.9 % (15.3-44.8); RBC Red Blood Cell Count 4.68 M/uL (4.33-5.43)
[2019-12-26 17:44] LABS: Albumin 3.6 g/dL (3.4-5.0); Bilirubin Total 0.4 mg/dL (0.2-1.0); Potassium 3.8 mmol/L (3.5-5.1); Protein, Total 7.7 g/dL (6.4-8.2)
[2019-12-26] MEDS ORDERED: DIPHENHYDRAMINE 50 MG/ML VIAL ONE (17:57)
[2019-12-26] MEDS ORDERED: ACETAMINOPHEN 500 MG TAB ONE (17:57)
[2019-12-26] MEDS ORDERED: FAMOTIDINE 20 MG/2 ML VIAL IV ONE (17:58)
[2019-12-26] MEDS ORDERED: NA CHLORIDE 0.9% 1,000 ML ONE (18:56)
--- NOTE | 2019-12-26 19:01 | RAD REPORT ---
EXAM DESCRIPTION: CT - Chest For Pe Angio - 12/26/2019 6:17 pm CLINICAL HISTORY: Chest pain. chest pain, shortness of breath, covid positive COMPARISON: No comparisons TECHNIQUE: CT angiogram of the pulmonary arteries was performed with MIP. All CT scans are performed using dose optimization technique as appropriate and may include automated exposure control or mA/KV adjustment according to patient size. FINDINGS: No evidence of pulmonary thromboembolism. No acute aortic finding demonstrated. Mild areas of poorly defined ground-glass opacity, greater in the right lung, suggest viral bronchiti s. No significant pericardial or pleural fluid. No concerning bony finding. IMPRESSION: No evidence of pulmonary thromboembolism. Areas of ground-glass opacity bilaterally, greater on the right, suggestive of COVID-19 infection.
--- NOTE | 2019-12-26 19:13 | ER ---
Nurse's Notes [facility] Name: Ellis Girard Age: 54 yrs Sex: Male : 1965 Arrival Date: 12/26/2019 Time: 15:42 Bed 7 Private MD: Diagnosis: Coronavirus infection, unspecified Presentation: 12/25 16:11 Chief complaint: Patient states: SOB and CP for 3 days. Started getting sick 6 days ss ago. Sent by Dr. Callahan for eval/CXR. Coronavirus screen: Client denies travel out of the [place] in the last 14 days. congestion, cough unrelated to allergies, difficulty breathing, fatigue, Client presents with at least one sign or symptom that may indicate coronavirus-19. Standard/surgical mask placed on the client. Client reports previous positive COVID test result. Ebola Screen: Patient denies travel to an Ebola-affected area in the 21 days before illness onset. Initial Sepsis Screen: Does the patient meet any 2 criteria? HR > 90 bpm. No. Patient's initial sepsis screen is negative. Does the patient have a suspected source of infection? Yes: Productive cough/pneumonia. Risk Assessment: Do you want to hurt yourself or someone else? Patient reports no desire to harm self or others. Onset of symptoms was December 24, 2019. 16:11 Method Of Arrival: Ambulatory ss 16:11 Acuity: NATACHA 3 ss Triage Assessment: 18:14 Respiratory: Onset: The symptoms/episode began/occurred the patient has moderate zb shortness of breath. Historical: - Allergies: 16:14 Iodine; ss - PMHx: 16:14 Hypertension; mitral valve prolapse; Sleep Apnea; ss - PSHx: 16:14 Hernia repair; rotator cuff BL; neck; ss - Immunization history:: Flu vaccine is not up to date. - Social history:: Smoking status: Patient denies any tobacco usage or history of. Screenin:32 Abuse screen: Denies threats or abuse. Denies injuries from another. Nutritional zb screening: No deficits noted. Tuberculosis screening: No symptoms or risk factors identified. Fall Risk No fall in past 12 months (0 pts). No secondary diagnosis (0 pts). IV access (20 points). Ambulatory Aid- None/Bed Rest/Nurse Assist (0 pts). Gait- Normal/Bed Rest/Wheelchair (0 pts) Mental Status- Oriented to own ability (0 pts). Total Wilson Fall Scale indicates No Risk (0-24 pts). Assessment: 17:00 General: Appears in no apparent distress. uncomfortable, obese, Behavior is calm, zb cooperative, appropriate for age, Reports chills for fever for feeling ill for fatigue for. Pain: Denies pain. Neuro: Level of Consciousness is awake, alert, obeys commands, Oriented to person, place, time, situation. Cardiovascular: Reports shortness of breath. Respiratory: Reports shortness of breath cough that is non-productive, dry, persistent Airway is patent Trachea midline Respiratory effort is even, unlabored, Respiratory pattern is tachypnea. GI: No signs and/or symptoms were reported involving the gastrointestinal system. : No signs and/or symptoms were reported regarding the genitourinary system. EENT: No signs and/or symptoms were reported regarding the EENT system. Derm: Skin is intact, is healthy with good turgor, Skin is pink, warm \T\ dry. Musculoskeletal: Circulation, motion, and sensation intact. Capillary refill < 3 seconds, is sluggish, in bilateral. 18:00 Reassessment: Patient appears in no apparent distress at this time. Patient and/or zb family updated on plan of care and expected duration. Pain level reassessed. Patient is alert, oriented x 3, equal unlabored respirations, skin warm/dry/pink. 19:00 Reassessment: Patient appears in no apparent distress at this time. Patient and/or zb family updated on plan of care and expected duration. Pain level reassessed. Respiratory: Reports cough that is non-productive, dry, persistent Airway is patent Respiratory effort is even, unlabored, Respiratory pattern is tachypnea. 19:15 Respiratory: Breath sounds are clear. wh 19:22 Cardiovascular: Rhythm is sinus tachycardia. zb Vital Signs: 16:11 BP 156 / 85; Pulse 111; Resp 22; Temp 99.9; Pulse Ox 95% ; Weight 147.42 kg; Height 6 ss ft. 4 in. (193.04 cm); Pain 7/10; 17:00 BP 150 / 86; Pulse 105; Resp 20; Temp 100.2(O); Pulse Ox 97% on R/A; zb 18:00 BP 152 / 86; Pulse 102; Resp 24; Temp 100; Pulse Ox 96% on R/A; zb 19:15 BP 144 / 84; Pulse 100; Resp 20; Pulse Ox 97% on R/A; wh 16:11 Body Mass Index 39.56 (147.42 kg, 193.04 cm) ED Course: 15:42 Patient arrived in ED. as 16:13 Triage completed. ss 16:14 Arm band placed on Patient placed in an exam room, on a stretcher. 16:17 Joe Bell PA is PHCP. m 16:17 Palomo Cortes MD is Attending Physician. jmm 16:42 Jodie Estes RN is Primary Nurse. zb 17:32 Patient has correct armband on for positive identification. Bed in low position. Call zb light in reach. Side rails up X 1. monitoring and evaluation advisor on. Pulse ox on. NIBP on. 17:33 Inserted saline lock: 20 gauge in right hand, using aseptic technique. zb 17:38 Notified Nurse Practitioner and/or Physician Physical Education Instructor of a critical lab result(s), D ss dimer 570. 18:11 Inserted saline lock: 22 gauge in left forearm, using aseptic technique. zb 18:[address] via stretcher. zb 18:18 CT Chest For PE Angio In Process Unspecified. EDMS 19:40 No provider procedures requiring assistance completed. IV discontinued, intact, wh bleeding controlled, No redness/swelling at site. Administered Medications: 17:15 Drug: Decadron - Dexamethasone 10 mg Route: IVP; Site: right hand; zb 18:12 Follow up: Response: No adverse reaction zb 18:10 Drug: Pepcid 20 mg Route: IVP; Site: left forearm; zb 18:49 Follow up: Response: No adverse reaction zb 18:11 Drug: Tylenol 1000 mg Route: PO; zb 18:58 Follow up: Response: No adverse reaction hb 18:11 Drug: diphenhydrAMINE 50 mg Route: IVP; Site: left forearm; zb 18:49 Follow up: Response: No adverse reaction zb 18:49 Drug: NS 0.9% 1000 ml Route: IV; Rate: 1 bolus; Site: right hand; zb Outcome: 19:12 Discharge ordered by . jmm 19:40 Discharged to home ambulatory, with family. 19:40 Condition: stable 19:40 Discharge instructions given to patient, family, Instructed on discharge instructions, follow up and referral plans. medication usage, POC Demonstrated understanding of instructions, follow-up care, medications, POC Prescriptions given X 1. 19:41 Patient left the ED. Signatures: Dispatcher [employer] EDMS Joe Bell PA PA jmm Martinez, Amelia as Smirch, Shelby, RN RN Venus Yanez RN RN Stephanie Ewing Jodie Estes RN RN zb Corrections: (The following items were deleted from the chart) 19:22 18:00 BP 152 / 86; Pulse 102bpm; Resp 24bpm; Pulse Ox 96% RA; zb zb
--- NOTE | 2019-12-26 19:13 | EDPHYS ---
Physician Documentation [facility] Name: Ellis Girard Age: 54 yrs Sex: Male : 1965 Arrival Date: 12/26/2019 Time: 15:42 Bed 7 Private MD: ED Physician Palomo Cortes HPI: 12/25 16:18 This 54 yrs old Male presents to ER via Ambulatory with complaints of jmm Breathing Difficulty - covid+, Chest Pain. 16:18 The patient has shortness of breath at rest. Onset: The symptoms/episode began/occurred jmm gradually, 6 day(s) ago. Duration: The symptoms are continuous, and are steadily getting worse. The patient's shortness of breath has no apparent modifying factors. Associated signs and symptoms: Pertinent positives: chest pain, non-productive cough. This is a 54 year old male with a history of htn, mvp, that presents to the ED with complaints of chest pain, shortness of breath beginning approx 6 days ago. patient recently tested positive for COVID 19. . Historical: - Allergies: 16:14 Iodine; ss - PMHx: 16:14 Hypertension; mitral valve prolapse; Sleep Apnea; ss - PSHx: 16:14 Hernia repair; rotator cuff BL; neck; ss - Immunization history:: Flu vaccine is not up to date. - Social history:: Smoking status: Patient denies any tobacco usage or history of. ROS: 16:18 Constitutional: Positive for body aches, fever. jmm 16:18 Respiratory: Positive for cough, shortness of breath. 16:18 All other systems are negative. Exam: 16:18 Constitutional: This is a well developed, well nourished patient who is awake, alert, jmm and in no acute distress. Head/Face: atraumatic. Eyes: EOMI, no conjunctival erythema appreciated ENT: Moist Mucus Membranes Neck: Trachea midline, Supple Chest/axilla: Normal chest wall appearance and motion. Cardiovascular: Regular rate and rhythm. No edema appreciated Respiratory: Normal respirations, no respiratory distress appreciated Abdomen/GI: Non distended, soft Back: Normal ROM Skin: General appearance color normal MS/ Extremity: Moves all extremities, no obvious deformities appreciated, no edema noted to the lower extremities Neuro: Awake and alert, normal gait Psych: Behavior is normal, Mood is normal, Patient is cooperative and pleasant Vital Signs: 16:11 BP 156 / 85; Pulse 111; Resp 22; Temp 99.9; Pulse Ox 95% ; Weight 147.42 kg; Height 6 ss ft. 4 in. (193.04 cm); Pain 7/10; 17:00 BP 150 / 86; Pulse 105; Resp 20; Temp 100.2(O); Pulse Ox 97% on R/A; zb 18:00 BP 152 / 86; Pulse 102; Resp 24; Temp 100; Pulse Ox 96% on R/A; zb 19:15 BP 144 / 84; Pulse 100; Resp 20; Pulse Ox 97% on R/A; wh 16:11 Body Mass Index 39.56 (147.42 kg, 193.04 cm) ss MDM: 16:18 Patient medically screened. [facility] 19:09 Data reviewed: vital signs, nurses notes. Counseling: I had a detailed discussion with laine the patient and/or guardian regarding: the historical points, exam findings, and any diagnostic results supporting the discharge/admit diagnosis, lab results, radiology results, the need for outpatient follow up, to return to the emergency department if symptoms worsen or persist or if there are any questions or concerns that arise at home. ED course: Patient is alert and non toxic in appearance in the ED. No signs of resp distress. Patient states symptoms are improved. Patient is given strict return precautions. Patient understood and agrees with the plan of care. . 12/25 16:26 Order name: CBC with Diff [facility] 12/25 16:26 Order name: CMP; Complete Time: 18:00 [facility] 12/25 16:26 Order name: D-Dimer; Complete Time: 17:39 [facility] 12/25 16:26 Order name: Procalcitonin; Complete Time: 18:05 [facility] 12/25 16:26 Order name: Lactate; Complete Time: 18:04 [facility] 12/25 16:26 Order name: Blood Culture Adult (2) [facility] 12/25 16:27 Order name: CBC with Automated Diff; Complete Time: 17:34 [facility] 12/25 16:43 Order name: Troponin (emerg Dept Use Only); Complete Time: 18:00 [facility] 12/25 17:39 Order name: CT Chest For PE Angio; Complete Time: 19:03 [facility] 12/25 16:26 Order name: Saline Lock; Complete Time: 18:59 [facility] 12/25 16:43 Order name: EKG - Nurse/Tech; Complete Time: 19:01 [facility] Administered Medications: 17:15 Drug: Decadron - Dexamethasone 10 mg Route: IVP; Site: right hand; zb 18:12 Follow up: Response: No adverse reaction zb 18:10 Drug: Pepcid 20 mg Route: IVP; Site: left forearm; zb 18:49 Follow up: Response: No adverse reaction zb 18:11 Drug: Tylenol 1000 mg Route: PO; zb 18:58 Follow up: Response: No adverse reaction hb 18:11 Drug: diphenhydrAMINE 50 mg Route: IVP; Site: left forearm; zb 18:49 Follow up: Response: No adverse reaction zb 18:49 Drug: NS 0.9% 1000 ml Route: IV; Rate: 1 bolus; Site: right hand; zb Disposition: 12/26 08:30 Co-signature as Attending Physician, Palomo Cortes MD I agree with the assessment and kdr plan of care. Disposition: 12/26/19 19:12 Discharged to Home. Impression: Coronavirus infection, unspecified. - Condition is Stable. - Discharge Instructions: COVID-19. - Prescriptions for Zithromax Z- Chalo 250 mg Oral Tablet - take 1 tablet by ORAL route as directed for 5 days Day 1 - take two (2) tablets one time. Day 2, 3, 4 , 5 take one (1) tablet once daily.; 6 tablet. - Medication Reconciliation Form, Thank You Letter, Antibiotic Education, Prescription Opioid Use form. - Follow up: Private Physician; When: 2 - 3 days; Reason: Recheck today's complaints, Continuance of care, Re-evaluation by your physician. - Notes: Please take 6000 to 96318 IU of vitamin D a day 1000 mg of NAC twice a day 50 mg of Zinc daily 500 mg of Quercetin twice a day Signatures: Dispatcher [employer] EDMS Palomo Cortes MD MD kdr Mickail, Joel, PA PA Amina Astudillo RN RN ss Habalo, Winsy wh Brown, Zipporah, RN RN zb Baxter, Heather RN hb Corrections: (The following items were deleted from the chart) 12/25 19:41 19:12 12/26/2019 19:12 Discharged to Home. Impression: Coronavirus infection, wh unspecified. Condition is Stable. Forms are Medication Reconciliation Form, Thank You Letter, Antibiotic Education, Prescription Opioid Use. Follow up: Private Physician; When: 2 - 3 days; Reason: Recheck today's complaints, Continuance of care, Re-evaluation by your physician. laine
[2019-12-27 03:43] VITALS: BP 152/86; TEMP 100; O2SAT 96
--- NOTE | 2019-12-28 06:08 | EKG ---
Test Date: 2019-12-26 Test Time: 18:56:01 [employer] Tube Bender: DMITRY MEASUREMENT RESULTS: Intervals: Rate: 101 NH: 206 QRSD: 90 QT: 330 QTc: 427 Johnston: P: 23 NH: 206 QRS: 74 T: 20 INTERPRETIVE STATEMENTS: Sinus tachycardia Otherwise normal ECG Compared to ECG 02/23/2019 15:33:42 Sinus rhythm no longer present First degree AV block no longer present Electronically Signed On 12-28-19 06:03:28 [employer] WORK[employer] by Pierce Schilling
== END 2019-12-26 19:41 | disposition home or self-care (01) ==
LOC: ER 15:40
DX: U07.1 COVID-19 (principal); R05 Cough; I10 Essential (primary) hypertension; Z91.048 Other nonmedicinal substance allergy status
CPT/HCPCS: 93005; 87040 ×2; 85025; 36415; 85379; 83605; 84484; 80053; 84145; 71275; 99285; Q9967; J1200; J1100; J7030

== ENCOUNTER 2021-04-17 10:11 | Emergency (ER) | payer OTHER, BC ==
--- OUTSIDE RECORDS SUMMARY | 2021-04-17 10:13 | XMS REPORT | Continuity of Care Document ---
:1965 Author Organization [facility] t Address [address] [place] [address] Care Team Providers Name Role Phone Fermin Callahan Primary Care Physician Alessandra STEVENSON, T Attending Clinician Unavailable Only, Db Test Attending Clinician Unavailable Nat WEBB Attending Clinician Payers Payer Name Policy Type Policy Number Effective Date Expiration Date S ource Problems This patient has no known problems. Allergies, Adverse Reactions, Alerts This patient has no known allergies or adverse reactions. Social History Social Habit Start Date Stop Date Quantity Comments Source Exposure to Not sure [facility] SARS-CoV-2 (event) [facility] Sex Assigned At [birth year] [facility] 00:00:00 00:00:00 [facility] Smoking Status Start Date Stop Date Source Unknown if ever smoked [facility] Medications This patient has no known medications. Immunizations Ordered Filled Immunization Date Status Comments [facility] e Immunization Name Name SARS-COV-2 COVID-19 2020-05-16 Completed Unive rsity of PFIZER VACCINE 00:00:00 [facility] SARS-COV-2 COVID-19 2020-05-16 Completed Unive rsity of PFIZER VACCINE 00:00:00 [facility] SARS-COV-2 COVID-19 2020-04-25 Completed Unive rsity of PFIZER VACCINE 00:00:00 [facility] SARS-COV-2 COVID-19 2020-04-25 Completed Unive rsity of PFIZER VACCINE 00:00:00 [facility] Procedures This patient has no known procedures. Encounters Start End Encounter Admission Attending Care Care Encounter Source Date/Time Date/Time Type Type Clinicians Facility Department ID 2020-11-05 2020-11-05 Letter ANTOINE Aparicio [id number] [facility] 00:00:00 00:00:00 (Out) [facility] [id number] it y of [facility] [id number] Casey as [id number] [address] 2020-11-04 2020-11-04 Laboratory Only, Ang Db Test [place] [id number] [facility] 11:54:55 12:09:55 Only [facility] [id number] ity of [place] [id number] Casey as Bry?Blea [id number] [place] [address] [facility] Results This patient has no known results.
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
[2021-04-17] MEDS ORDERED: Ringers Lactate 1,000 ML IV ONE (11:14)
[2021-04-17 11:27] LABS: Lymphocytes % 22.2 % (15.3-44.8); MPV 7.8 fL (7.6-11.3); RBC Red Blood Cell Count 4.94 M/uL (4.33-5.43)
[2021-04-17] MEDS ORDERED: DIAZEPAM 5 MG TABLET ONE (11:41)
[2021-04-17] MEDS ORDERED: HYDROCODONE/APAP 5/325 MG TAB ONE (11:42)
[2021-04-17 12:06] LABS: Potassium 3.9 mmol/L (3.5-5.1)
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
[2021-04-17 12:52] LABS: Blood Morphology Comment NOT SEEN (NOT SEEN); Platelet Estimate ADEQ
[2021-04-17 13:37] VITALS: BP 136/74; TEMP 98.4; O2SAT 100
== END 2021-04-17 13:25 | disposition home or self-care (01) ==
LOC: ER 10:11
DX: M62.838 Other muscle spasm (principal); M25.551 Pain in right hip; M54.2 Cervicalgia; M54.9 Dorsalgia, unspecified; V59.49XA Driver of pick-up truck or van injured in collision with other motor vehicles in traffic accident, initial encounter; I10 Essential (primary) hypertension; Z91.048 Other nonmedicinal substance allergy status
CPT/HCPCS: 85025; 80048; 36415; 70450; 71250; 72125; 96360; 99285; J7120

== ENCOUNTER 2024-11-10 12:09 | Emergency (ER) | payer BC ==
--- OUTSIDE RECORDS SUMMARY | 2024-11-10 12:13 | XMS REPORT | Continuity of Care Document ---
Author Name Unknown Address [address] [place] [address] [facility] Address [address] [place] [address] Care Team Providers Care Fresh Food Manager Name Role Phone Wayne Quintero Attending Clinician Unavailable Silvia Attending Clinician UnavailWAYNE Lang Attending Clinician Unava ilable FOG_A_Provider Attending Clinician Unavailable Wayne Quintero Admitting Clinician Unavailable Amalia Jamison Cardiology Admitting Clinician Unavailable Silvia Admitting Clinician Unavaila isabel FOG_A_Provider Admitting Clinician Unavailable Payers Payer Name Policy Type Policy Number Effective Date Expirati on Date Source [facility] [id number] Problems Condition Name Condition Details Condition Category Status Onset Date Resolution Date Last Treatment Date Treating Clinician Comments Source Postoperat rolo pain Postoperat rolo Pain Problem Active - 00:00: 00 [facility] Pseudarthr 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 s Pseudarthr osis after Fusion or Arthrodesi s Problem Active 9-12 00:00: 00 [facility] Peroneal tendinitis Peroneal Tendinitis Problem Active 2023-0 7-21 00:00: 00 [facility] Sprain of right ankle Sprain of Right Ankle Problem Active 2021-02 00:00: 00 [facility] Arthritis of right foot Arthritis of Right Foot Problem Active 2021-02 00:00: 00 [facility] Rupture of posterior tibial tendon Rupture of Posterior Tibial Tendon Problem Active 2021-02 00:00: 00 [facility] Arthritis of right ankle Arthritis of Right Ankle Problem Active 2021-02 00:00: 00 [facility] Allergies, Adverse Reactions, Alerts Allergy Name Allergy Type Status Severity Reaction(s) Onset Date Inactive Date Treating Clinician Comments Source Iodinate d Contrast Media DA Active SV ANAPHYLAXIS 2024-0 9-02 00:00: 00 [facility] Iodinate d Contrast Media DA Active SV ANAPHYLAXIS 2024-0 5-08 00:00: 00 [facility] Iodinate d Contrast Media DA Active SV ANAPHYLAXIS 2023-02 2-02 00:00: 00 [facility] Iodinate d Contrast Media DA Active SV ANAPHYLAXIS 2023-0 5-14 00:00: 00 [facility] Iodinate d Contrast Media DA Active SV ANAPHYLAXIS 2022-0 1-16 00:00: 00 [facility] Iodinate d Contrast Media DA Active SV ANAPHYLAXIS 2022-0 1-10 00:00: 00 [facility] Social History Smoking Status Start Date Stop Date Source Never Smoker [facility] Medications Ordered Medication Name Filled Medication Name Start Date Stop Date Current Medication? Ordering Clinician Indication Dosage Frequency Signature (SIG) Comments Components Source hydrocodone 5 mg-acetamin ophen 325 mg tablet Take 1 tablet every 6 hours by oral route. hydrocodone 5 mg-acetamin ophen 325 mg tablet Take 1 tablet every 6 hours by oral route. No 1 Q6H hydrocodon e 5 mg-acetami nophen 325 mg tablet Take 1 tablet every 6 hours by oral route. [facility] meloxicam 15 mg tablet take one tablet daily meloxicam 15 mg tablet take one tablet daily No 1 Q1D meloxicam 15 mg tablet take one tablet daily [facility] methocarbam ol 500 mg tablet Take 1 tablet 3 times a day by oral route. methocarbam ol 500 mg tablet Take 1 tablet 3 times a day by oral route. No 1 TID methocarba mol 500 mg tablet Take 1 tablet 3 times a day by oral route. [facility] Citracal + Vitamin D Maximum 315 mg-6.25 mcg (250 unit) tablet Take 1 tablet every day by oral route for 30 days. Citracal + Vitamin D Maximum 315 mg-6.25 mcg (250 unit) tablet Take 1 tablet every day by oral route for 30 days. No 1 Q1D Citracal + Vitamin D Maximum 315 mg-6.25 mcg (250 unit) tablet Take 1 tablet every day by oral route for 30 days. [facility] hydrocodone 10 mg-acetamin ophen 325 mg tablet Take 1 tablet every 4 hours by oral route as needed. hydrocodone 10 mg-acetamin ophen 325 mg tablet Take 1 tablet every 4 hours by oral route as needed. No 1 Q4H hydrocodon e 10 mg-acetami nophen 325 mg tablet Take 1 tablet every 4 hours by oral route as needed. [facility] fenofibrate 160 mg tablet TAKE 1 TABLET BY MOUTH DAILY fenofibrate 160 mg tablet TAKE 1 TABLET BY MOUTH DAILY No fenofibrat e 160 mg tablet TAKE 1 TABLET BY MOUTH DAILY [facility] gabapentin 600 mg tablet TAKE 1 TABLET BY MOUTH EVERY NIGHT AT BEDTIME gabapentin 600 mg tablet TAKE 1 TABLET BY MOUTH EVERY NIGHT AT BEDTIME No gabapentin 600 mg tablet TAKE 1 TABLET BY MOUTH EVERY NIGHT AT BEDTIME [facility] montelukast 10 mg tablet TAKE 1 TABLET BY MOUTH DAILY montelukast 10 mg tablet TAKE 1 TABLET BY MOUTH DAILY No montelukas t 10 mg tablet TAKE 1 TABLET BY MOUTH DAILY [facility] Mounjaro 12.5 mg/0.5 mL subcutaneou s pen injector INJECT 12.5MG UNDER THE SKIN ONCE A WEEK Mounjaro 12.5 mg/0.5 mL subcutaneou s pen injector INJECT 12.5MG UNDER THE SKIN ONCE A WEEK No Mounjaro 12.5 mg/0.5 mL subcutaneo us pen injector INJECT 12.5MG UNDER THE SKIN ONCE A WEEK [facility] Vital Signs Vital Name Observation Time Observation Value Comments S ource BMI (Body Mass Index) 2023-12-28 00:00:00 48.1 kg/m2 [facility] Height 2023-12-28 00:00:00 76 [in_i] [facility] Body Weight 2023-12-28 00:00:00 395 [lb_av] [facility] Body Weight 2023-10-26 00:00:00 395 [lb_av] [facility] BMI (Body Mass Index) 2023-10-26 00:00:00 48.1 kg/m2 [facility] Height 2023-10-26 00:00:00 76 [in_i] [facility] Height 2023-09-07 00:00:00 76 [in_i] [facility] Body Weight 2023-09-07 00:00:00 395 [lb_av] [facility] BMI (Body Mass Index) 2023-09-07 00:00:00 48.1 kg/m2 [facility] Body Weight 2023-08-10 00:00:00 395 [lb_av] [facility] BMI (Body Mass Index) 2023-08-10 00:00:00 48.1 kg/m2 [facility] Height 2023-08-10 00:00:00 76 [in_i] [facility] Body Weight 2023-03-10 00:00:00 395 [lb_av] [facility] BMI (Body Mass Index) 2023-03-10 00:00:00 48.1 kg/m2 [facility] Height 2023-03-10 00:00:00 76 [in_i] [facility] Procedures Procedure Date / Time Performed Performing Clinicia n Source XR, ankle, 3 or more view 2023-12-28 00:00:[address] [facility] [address], ankle, w/o contrast 2023-12-28 00:00:00 [facility] XR, ankle, 3 or more view 2023-10-26 00:00:00 [facility] XR, ankle, 3 or more view 2023-09-07 00:00:00 [facility] XR, ankle, 3 or more view 2023-08-10 00:00:[address] [facility] [address], ankle, w/o contrast 2023-03-10 00:00:00 [facility] XR, foot, 2 view 2022-05-27 00:00:00 [facility] XR, foot, 2 view 2022-04-10 00:00:00 [facility] XR, foot, 2 view 2022-03-11 00:00:00 [facility] XR, calcaneus, 2 or more view 2022-03-11 00:00:00 [facility] XR, foot, 2 view 2022-01-21 00:00:00 [facility] XR, ankle, 3 or more view 2022-01-21 00:00:00 [facility] Encounters Start Date/Time End Date/Time Encounter Type Admission Type Attending [facility] Care Facility Care Department Encounter ID Source 2022-08-28 15:00:00 Inpatient Wayne VinesTO RADI [id number] [facility] 2022-07-10 15:33:08 Outpatient [facility] [id number] [facility] 2024-10-10 11:21:00 2024-10-10 11:21:00 Outpatient Wayne Vines [facility] RADI [id number] [facility] 2024-06-19 08:07:00 2024-06-19 08:07:00 Outpatient Wayne Vines [facility] SURG [id number] [facility] 2024-06-02 12:12:00 2024-06-02 12:12:00 Outpatient Wayne VinesTO RADI [id number] [facility] 2024-03-29 09:15:00 2024-03-29 09:15:00 Outpatient Wayne Vines [facility] RADI [id number] [facility] 2024-01-11 13:54:00 2024-01-11 13:54:00 Outpatient Wayne VinesTO RADI [id number] [facility] 2023-12-28 11:57:00 2023-12-28 11:57:00 Outpatient Wayne Vines [facility] RADI [id number] [facility] 2023-12-28 00:00:00 2023-12-28 00:00:00 Wayne Quintero MD: [address] [place] [address] , Ph. [phone] [place] [facility] [address] [place] [id number] [facility] 2023-10-26 00:00:00 2023-10-26 00:00:00 Wayne Quintero MD: [address] [place] [address] , Ph. [phone] [place] [facility] [address] [place] [id number] [facility] 2023-09-07 00:00:00 2023-09-07 00:00:00 Wayne Quintero MD: [address] [place] [address] , Ph. [phone] [place] [facility] [address] [place] [id number] [facility] 2023-08-10 00:00:00 2023-08-10 00:00:00 Wayne Quintero MD: [address] [place] [address] , Ph. [phone] [place] [facility] [address] [place] [phone] [id number] [facility] 2023-07-19 11:51:00 2023-07-20 11:28:00 Inpatient Wayne VinesTO SURG [id number] [facility] 2023-07-19 00:00:00 2023-07-19 00:00:00 Wayne Quintero MD: [address] [place] [address] , Ph. [phone] [facility] [place] [facility] [id number] [facility] 2023-05-03 00:00:00 2023-05-03 00:00:00 Outpatient FOG_Kev_ Wayne_ [facility] [id number] [facility] 2023-03-17 11:01:00 2023-03-17 23:59:00 Outpatient WAYNE QUINTERO [facility] [id number] [facility] 2023-03-10 00:00:00 2023-03-10 00:00:00 Wayne Quintero MD: [address] [place] [address] , Ph. [phone] [facility] [place] [facility] [address] [id number] [facility] 2022-09-08 08:19:00 2022-09-08 23:59:[address] [id number] [facility] 2022-05-27 00:00:00 2022-05-27 00:00:00 Wayne Quintero MD: [address] [place] [phone] , Ph. [phone] [facility] [place] [facility] [address] [id number] [facility] 2022-04-10 00:00:00 2022-04-10 00:00:00 Wayne Quintero MD: [address] [place] [phone] , Ph. [phone] [facility] [place] [facility] [address] [id number] [facility] 2022-03-11 00:00:00 2022-03-11 00:00:00 Wayne Quintero MD: [address] [place] [phone] , Ph. [phone] [place] [facility] [address] [id number] [facility] 2022-02-23 12:03:00 2022-02-25 12:20:00 Inpatient Wayne Vines [facility] SURG [id number] [facility] 2022-02-23 00:00:00 2022-02-23 00:00:00 Wayne Quintero MD: [address] [place] [phone] , Ph. [phone] [facility] [place] [facility] [id number] [facility] 2022-01-21 00:00:00 2022-01-21 00:00:00 Wayne Quintero MD: [address] [place] [phone] , Ph. [phone] [facility] [place] [facility] [address] [place] [id number] [facility] Results Test Description Test Time Test Comments Results Result Co mments Source [id number] 09:28:00* Test Item Value Reference Range Interpretation Comme nts GLUBED (test code = GLUBED) 105 mg/dL 60-99 H The normal fasti ng blood glucose range for a non-diabeticadult is 60-99 mg/dL. Two hours after meals, normal blood glucose levels should beless than 140 mg/dL.Please note new normal range. [id number] 09:17:00* Test Item Value Reference Range Interpretation Comme nts glubed (test code = glubed) 105 mg/dL 60-99 H performing lab: (test code = performing lab:) [facility] Medicine[facility] METABOLIC [id number] 13:46:00* Test Item Value Reference Range Interpretation Comme nts SODIUM (test code = NA) 137 mmol/L 136-145 N POTASSIUM (test code = K) 3.9 mmol/L 3.5-5.1 N CHLORIDE (test code = CL) 101.0 mmol/L 98-107 N CARBON DIOXIDE (test code = CO2) 26.8 mmol/L 21-32 N GLUCOSE (test code = GLU) 81 mg/dL 74-106 N BLOOD UREA NITROGEN (test code = BUN) 12 mg/dL 7-18 N GLOMERULAR FILTRATION RATE (test code = GFR) 85.7 >60 The Glomerular Filtration Rate is a calculated parameterbased on serum Creatinine, patient age and sex. GFR valuesless than 60 mL/min/1.73 square meters are indicative ofChronic Kidney Disease. Values less than 15 mL/min/1.73square meters indicate Kidney failure. The calculation forGFR is based on the CKD-EPI (2021) calculation. This formulais race indifferent and is the recommended formula for GFRby the National Kidney Foundation for Adults.The GFR will not calculate if the sex is unknown or if thepatient's age is <18 years. CREATININE (test code = CREAT) 1.02 mg/dL 0.70-1.30 N CALCIUM (test code = CA) 9.1 mg/dL 8.5-10.1 N COMPREHENSIVE METABOLIC [id number] 10:23:00* Test Item Value Reference Range Interpretation Comme nts SODIUM (test code = NA) 139 mmol/L 136-145 N POTASSIUM (test code = K) 4.1 mmol/L 3.5-5.1 N CHLORIDE (test code = CL) 101.0 mmol/L 98-107 N CARBON DIOXIDE (test code = CO2) 27.5 mmol/L 21-32 N GLUCOSE (test code = GLU) 217 mg/dL 70-110 H BLOOD UREA NITROGEN (test code = BUN) 15 mg/dL 7-18 N GLOMERULAR FILTRATION RATE (test code = GFR) 90.5 >60 The Glomerular Filtration Rate is a calculated parameterbased on serum Creatinine, patient age and sex. GFR valuesless than 60 mL/min/1.73 square meters are indicative ofChronic Kidney Disease. Values less than 15 mL/min/1.73square meters indicate Kidney failure. The calculation forGFR is based on the CKD-EPI (2021) calculation. This formulais race indifferent and is the recommended formula for GFRby the National Kidney Foundation for Adults.The GFR will not calculate if the sex is unknown or if thepatient's age is <18 years. CREATININE (test code = CREAT) 0.98 mg/dL 0.55-1.30 N TOTAL PROTEIN (test code = PROT) 7.1 g/dL 6.4-8.2 N ALBUMIN (test code = ALB) 3.7 g/dL 3.4-5.0 N GLOBULIN (test code = GLOB) 3.4 g/dL 2.2-4.2 N ALBUMIN/GLOBULIN RATIO (test code = A/G) 1.1 0.7-2.0 N CALCIUM (test code = CA) 8.7 mg/dL 8.2-10.1 N BILIRUBIN TOTAL (test code = BILT) 0.40 mg/dL 0.2-1.00 N SGOT/AST (test code = AST) 20.0 U/L 15-37 N SGPT/ALT (test code = ALT) 32.0 U/L 12-78 N ALKALINE PHOSPHATASE TOTAL (test code = ALKP) 56 U/L 46-116 N CBC W/AUTO [id number] 09:58:00* Test Item Value Reference Range Interpretation Comme nts WHITE BLOOD CELL (test code = WBC) 8.0 K/mm3 5.7-10.5 N RED BLOOD CELL (test code = RBC) 4.83 M/mm3 4.2-5.4 N HEMOGLOBIN (test code = HGB) 14.4 g/dL 12-16 N HEMATOCRIT (test code = HCT) 41.2 % 37-47 N MEAN CELL VOLUME (test code = MCV) 85 fL 80-98 N MEAN CELL HGB (test code = MCH) 29.8 pg 27-34 N MEAN CELL HGB CONCENTRATION (test code = MCHC) 35.0 g/dL 30.8-34.1 H RED CELL DISTRIBUTION WIDTH (test code = RDW) 13.9 % 11-16 N PLT (test code = PLT) 314 K/mm3 130-400 N MEAN PLATELET VOLUME (test c ode = MPV) 9.6 fL 8.9-12.1 N NEUTROPHIL % (test code = NT%) 56.0 % 45-70 N LYMPHOCYTE % (test code = LY%) 29.0 % 20-40 N MONOCYTE % (test code = MO%) 10.8 % 3-10 H EOSINOPHIL % (test code = EO%) 2.3 % 1-5 N BASOPHIL % (test code = BA%) 0.6 % 0.0-1.1 N NEUTROPHIL # (test code = NT#) 4.49 K/mm3 2.00-7.50 N LYMPHOCYTE # (test code = LY#) 2.32 K/mm3 1.50-4.00 N MONOCYTE # (test code = MO#) 0.86 K/mm3 0.2-0.8 H EOSINOPHIL # (test code = EO#) 0.18 K/mm3 0.04-0.4 N BASOPHIL # (test code = BA#) 0.05 K/mm3 0.02-0.10 N MANUAL DIFF REQUIRED (test c ode = MDIFF) NO MANUAL DIFF NUCLEATED RED BLOOD CELL (te st code = NRBC) 0 % 0-0 N Notes Date/Time Note Provider Source 2024-06-19 12:10:00 [id number] [facility] [address] [place] [address] PATIENT NAME: LAILA MCLEAN ADMIT DATE: 06/19/24 ACCOUNT NO: [id number] ROOM NO: AGE: 58 REPORT TYPE: OPERATIVE REPORT SEX: M ADMITTING PHYSICIAN: ATTENDING PHYSICIAN:Wayne Quintero MD OPERATION DATE: 06/19/2024 PREOPERATIVE DIAGNOSES: 1. Right ankle arthritis. 2. Right ankle pain with synovitis/arthrofibrosis. POSTOPERATIVE DIAGNOSES: 1. Right ankle arthritis. 2. Right ankle pain with synovitis/arthrofibrosis. PROCEDURE: Right ankle arthroscopic debridement, extensive. SURGEON: Wayne Quintero M.D. RESEARCH WORKER KITCHEN: Efrain Espinal DO ANESTHESIA: General and local. BLOOD LOSS: Minimal. SPECIMENS: None. COMPLICATIONS: None. DISPOSITION: The patient was taken to the recovery room in stable condition and discharged home with followup. INDICATIONS FOR PROCEDURE: The patient is a 58-year-old gentleman who has had multiple surgeries to his right hindfoot region. He is complaining of pain mostly at the anterolateral aspect of the ankle region that has become unresponsive to nonoperative management. He presents today electively for the aforementioned procedure. PROCEDURE IN DETAIL: After obtaining the appropriate informed consent, discussing risks and benefits of surgery, the patient was given preoperative antibiotics in the holding area. The correct leg was identified and signed. He was taken to the operating room and placed on the operating table in the supine position. He was placed under general anesthesia by the anesthesiologist without any complications. A tourniquet was placed onto his right thigh. His right leg was placed onto a well-padded leg grier with the hip flexed 45 degrees and the knee flexed to 90 degrees. His right lower extremity was then prepped and draped in a sterile fashion. The leg was elevated, exsanguinated with Esmarch, and the PATIENT NAME: LAILA MCLEAN tourniquet inflated to 300 mmHg. A noninvasive ankle distractor was then utilized. The ankle joint was injected with 10 mL of normal saline through an anteromedial portal site. Next, standard anteromedial and anterolateral ankle arthroscopic portals were made with the skin incised only and blunt dissection through the ankle capsule being careful to protect any neural structures. The ankle joint was then systematically examined arthroscopically using a pump flow system and the 2.7-mm arthroscope. There was some mild chondromalacia in the ankle involving mostly the anterior aspect of the talar dome and the anterior aspect of the distal tibia. This was debrided with a shaver. There was no exposed subchondral bone seen. The syndesmosis was stable to probing. There was some diffuse synovitis and arthrofibrosis involving mostly the anteromedial, anterior and anterolateral aspects of the ankle, which was extensively debrided with a shaver until there were no signs of impingement with ankle dorsiflexion. The ankle joint was then copiously lavaged of all debris and the instruments were removed. The portals were closed with simple nylon suture and infiltrated with 10 mL of 0.5% ropivacaine plain. The wounds were sterilely dressed and he was placed into a well-padded posterior splint. The tourniquet was let down and the toes were well perfused at that time. The patient tolerated the procedure well. He awoke from general anesthesia without any complications. He was placed in his hospital bed and taken to the recovery room in stable condition. He will be discharged home with followup. He will resume his aspirin for DVT prophylaxis. Dictated By: Wayne Quintero MD Date Dictated: 06/19/2024 12:10:20 Date Transcribed: 06/19/2024 12:29:55 MICHAEL/JOEY Receipt ID: [id number] Authenticated by Wayne Quintero MD On 06/20/2024 07:00:07 AM at 0700 PATIENT NAME: LAILA MCLEAN [facility] 2024-06-19 11:09:00 [facility] Brief Op Note REPORT#:[id number] REPORT STATUS: Signed REPORT INITIALIZATION DATE:06/19/24 TIME: 1108 PATIENT: LAILA MCLEAN UNIT #: [id number] ROOM/BED: : 65 AGE: 58 SEX: M ATTEND: Wayne Quintero MD ADM AUTHOR: Wayne Quintero MD REPT SERVICE DT/TIME: 06/19/24 1109 * ALL edits or amendments must be made on the electronic/computer document * Op/Inv Proc Note - Brief Pre-procedure diagnosis: right ankle DJD right ankle impingement Post-procedure diagnosis: same as pre procedure dx Procedures performed: right ankle scope Primary Surgeon: Kev Counting Machine Operator(s): Kylie Findings: right ankle DJD right ankle impingement Complications: none Estimated blood loss in ml's: 10 Specimens removed/altered: none at 1155 RPT #:[id number] [facility] 06:52:00 [facility] Clinical Note REPORT#:[id number] REPORT STATUS: Signed REPORT INITIALIZATION DATE:07/20/23 TIME: 651 PATIENT: LAILA MCLEAN UNIT #: [id number] ROOM/BED: Y304-B : 65 AGE: 57 SEX: M ATTEND: Wayne Quintero MD ADM AUTHOR: Wayne Quintero MD REPT SERVICE DT/TIME: 07/20/23 0652 * ALL edits or amendments must be made on the electronic/computer document * Clinical Note Note: pain under control afebrile VSS RLE--splint intact, +DF/PF toes, LT intact, good cap refill in toes plan--d/c home at 0652 RPT #:[id number] END OF REPORT [facility] 2023-07-19 12:05:00 [id number] [facility] [address] [place] [address] PATIENT NAME: LAILA MCLEAN ADMIT DATE: 07/19/23 ACCOUNT NO: [id number] ROOM NO: Y.304 AGE: 57 REPORT TYPE: OPERATIVE REPORT SEX: M ADMITTING PHYSICIAN:Wayne Quintero MD ATTENDING PHYSICIAN:Wayne Quintero MD OPERATION DATE: 07/19/2023 PREOPERATIVE DIAGNOSIS: Right subtalar fusion nonunion. POSTOPERATIVE DIAGNOSIS: Right subtalar fusion nonunion. PROCEDURES: Right subtalar revision fusion with allograft and iliac crest bone marrow aspirate. SURGEON: Wayne Quintero M.D. RESEARCH WORKER KITCHEN: Schuyler Marcial DO. ANESTHESIA: General plus local. BLOOD LOSS: Minimal. SPECIMENS: None. COMPLICATIONS: None. DISPOSITION: The patient was taken to recovery room in stable condition and then admitted to the observation unit for continued care. INDICATIONS FOR THE PROCEDURE: The patient is a 57-year-old gentleman who is status post a right hindfoot reconstruction. He has healed all these procedures except for the subtalar fusion that has gone on to develop a symptomatic nonunion. He presents today electively for the aforementioned procedures. DESCRIPTION OF PROCEDURE: After obtaining the proper informed consent and discussing risks and benefits of surgery, the patient was given preoperative antibiotics in the holding area. The correct leg was identified and signed. He was taken to the operating room and was placed on the operating table in supine position. He was placed under general anesthesia by the anesthesiologist without any complications. A tourniquet was placed onto his right thigh and he was then placed into the left lateral decubitus position with his extremities and trunk well padded. His right iliac crest and right lower extremity were then prepped and draped in sterile fashion. I then used an 11 gauge bone marrow aspirate needle to obtain bone marrow from the right iliac crest without any complications. The right leg was then elevated, exsanguinated with an Esmarch, and tourniquet was inflated to 300 mmHg. We utilized his previous two posterior heel incisions to remove his previous screws. We then utilized his previous PATIENT NAME: LAILA MCLEAN sinus tarsi incision to gain access to the subtalar joint. There was a clear nonunion. There were no obvious signs of infection. The joint was then debrided of all fibrous tissue. We used a bur and drill to get to healthy-appearing bleeding bone. We then soaked an allograft bone wedge in the bone marrow aspirate. This was then placed into the subtalar joint in the appropriate position. The heel was then held in the appropriate position and the subtalar joint was stabilized with three [place] partially threaded headless cannulated screws with two placed posteriorly and a third one placed at the plantar aspect of the heel up into the talar head. All the screws were placed under radiographic guidance and had good fixation. We then packed some cancellous bone chips into the middle facet/sinus tarsi region to try to improve the fusion rate. The small incisions were then irrigated and closed with nylon suture. The sinus tarsi incision was then closed in the usual fashion in layers. The wounds were infiltrated with 30 mL of 0.5% ropivacaine plain and then sterilely dressed. He was placed into a well-padded posterior splint. The tourniquet was let down and the toes were well perfused at that time. The patient tolerated the procedure well. He awoke from general anesthesia without any complications. He was placed on his hospital bed and taken to recovery room in stable condition where he will be admitted to the observation unit for continued care. Dictated By: Wayne Quintero MD Date Dictated: 07/19/2023 12:05:23 Date Transcribed: 07/19/2023 12:22:49 /FORMERLY [facility] Receipt ID: [id number] Authenticated by Wayne Quintero MD On 07/20/2023 06:55:53 AM at 0655 PATIENT NAME: LAILA MCLEAN [facility] 2023-07-19 10:02:00 [facility] ([facility]) Brief Op Note REPORT#:[id number] REPORT STATUS: Signed REPORT INITIALIZATION DATE:07/19/23 TIME: 1002 PATIENT: LAILA MCLEAN UNIT #: [id number] ROOM/BED: : 65 AGE: 57 SEX: M ATTEND: Wayne Quintero MD ADM AUTHOR: Wayne Quintero MD REPT SERVICE DT/TIME: 07/19/23 1002 * ALL edits or amendments must be made on the electronic/computer document * Op/Inv Proc Note - Brief Pre-procedure diagnosis: right subtalar fusion nonunion Post-procedure diagnosis: same as pre procedure dx Procedures performed: right revision subtalar fusion with ICBG/allgraft Primary Surgeon: Kev Counting Machine Operator(s): Aniket Findings: right subtalar fusion nonunion Complications: none Estimated blood loss in ml's: 25 Specimens removed/altered: none at 1150 RPT #:[id number] END OF REPORT [facility] 2023-06-22 12:25:00 [id number] [place] [address] PATIENT NAME: LAILA MCLEAN ADMIT DATE: ACCOUNT NO: [id number] ROOM NO: AGE: 57 REPORT TYPE: ELECTROCARDIOGRAM SEX: M ADMITTING PHYSICIAN: ATTENDING PHYSICIAN:Wayne Quintero MD Order: [id number] Test Reason : PREOP CLEARANCE H/O HTN Test Date/Time Stamp: WedJun 22 2023 12:25:27 Blood Pressure : / mmHG Vent. Rate : 081 BPM Atrial Rate : 081 BPM P-R Int : 224 ms QRS Dur : 092 ms QT Int : 368 ms P-R-T Axes : 052 077 065 degrees QTc Int : 427 ms Sinus rhythm with 1st degree AV block Otherwise normal ECG When compared with ECG of 17-FEB-2022 10:05, AL interval has increased Confirmed by DELILAH HUERTA MD ([id number]) on 07/14/2023 8:43:05 AM Referred By: Wayne Quintero Confirmed by:DELILAH HUERTA MD PATIENT NAME: LAILA MCLEAN [facility] 2022-02-24 07:02:00 [facility] ([facility]) Clinical Note REPORT#:[id number] REPORT STATUS: Signed DATE:02/24/22 TIME: 0702 PATIENT: STEFAN MCLEAN UNIT #: [id number] ROOM/BED: [address] : 65 AGE: 56 SEX: M ATTEND: Wayne Quintero MD ADM AUTHOR: Wayne Quintero MD * ALL edits or amendments must be made on the electronic/computer document * Clinical Note Note: pain under control afebrile VSS RLE--splint intact, +DF/PF toes, LT intact, good cap refill in toes plan--d/c home at 0703 RPT #:[id number] END OF REPORT [facility] 2022-02-23 17:10:00 [id number] [place] [address] PATIENT NAME: STEFAN MCLEAN ADMIT DATE: 02/23/22 ACCOUNT NO: [id number] ROOM NO: Y.306 AGE: 56 REPORT TYPE: OPERATIVE REPORT SEX: M ADMITTING PHYSICIAN:Wayne Quintero MD ATTENDING PHYSICIAN:Wayne Quintero MD OPERATION DATE: 02/23/2022 PREOPERATIVE DIAGNOSES: 1. Right posterior tibialis tendon dysfunction. 2. Right spring ligament tear. 3. Right hindfoot arthritis. POSTOPERATIVE DIAGNOSES: 1. Right posterior tibialis tendon dysfunction. 2. Right spring ligament tear. 3. Right hindfoot arthritis. PROCEDURES: 1. Right subtalar fusion. 2. Right posterior tibialis tenolysis. 3. Right flexor digitorum longus tendon transfer. 4. Right spring ligament repair/reconstruction. SURGEON: Wayne Quintero MD RESEARCH WORKER KITCHEN: Shubham Quintero MD ANESTHESIA: General plus local. BLOOD LOSS: Minimal. SPECIMENS: None. COMPLICATIONS: None. DISPOSITION: The patient was taken to recovery room in stable condition and then admitted to the observation unit for continued care. INDICATIONS FOR OPERATION: The patient is a 56-year-old gentleman with the aforementioned problems in his right hindfoot region that has become unresponsive to nonoperative management. He has developed a pes planovalgus deformity. Treatment options were discussed in detail and he has elected for the aforementioned procedures as he has become unresponsive to nonoperative management. DESCRIPTION OF OPERATION: After obtaining the proper informed consent and discussing risks and benefits of surgery, the patient was given preoperative PATIENT NAME: STEFAN MCLEAN antibiotics in the holding area. The correct leg was identified and signed. He was taken to the operating room, was placed on the operating table in supine position. He was placed under general anesthesia by the anesthesiologist without any complications. A tourniquet was placed onto his right thigh and a bump was placed under his right hip. His right lower extremity was then prepped and draped in sterile fashion. Leg was elevated and exsanguinated with an Esmarch and the tourniquet was inflated to 300 mmHg. A sinus tarsi approach was then made to the subtalar joint. There were degenerative changes in the joint. The joint was then prepared for fusion, removing all remaining articular cartilage and sclerotic bone. Multiple drill holes were made on either side of the joint after irrigation. We also fish scaled either side of the joint. We then placed ArthroCell graft into the joint to aid in the fusion process. The joint was then stabilized with two Arthrex 7.0 headless screws placed through incisions at the posterior heel. The screws were placed under radiographic guidance correcting the severe hindfoot valgus. The screws appeared to be in good position and there appeared to be good correction of the hindfoot valgus deformity. These wounds were then closed in the usual fashion. After irrigating the posterior wounds, the bump was then removed in order to allow the leg to externally rotate. An incision was made from the medial malleolus just past the navicular. Full thickness flaps were created. The diseased posterior tibialis tendon was then identified. This was taken down off the navicular and transected near the medial malleolus. A healthy flexor digitorum longus tendon was then harvested near the knot of Quang. A whipstitch was placed onto this tendon. There was also noted to be a complete rupture of the spring ligament. This was repaired with #2 FiberWire suture in a [id number] fashion. We then placed an Arthrex internal brace into the sustentaculum teo under radiographic guidance. A bony tunnel was then made from dorsal to plantar at the medial aspect of the navicular. One limb of the internal brace was brought from dorsal to plantar through the tunnel. The other limb was brought out from plantar to dorsal with the flexor digitorum longus tendon. The structures were then tensioned appropriately in the tunnel with a tenodesis screw. We reinforced the tendon transfer with suture into the surrounding periosteum. The foot now appeared to be in good position. It was felt that no Cotton osteotomy would be needed. The medial wound was then irrigated and closed in the usual fashion in layers. The wounds were infiltrated with 30 mL of 0.5% ropivacaine plain and then sterilely dressed. He was placed into a well-padded posterior splint. The tourniquet was let down and the toes were well perfused at that time. The patient tolerated the procedure well. He awoke from general anesthesia without any complications. He was placed on his hospital bed and taken to the recovery room in stable condition where he will be admitted to the observation unit for continued care. Dictated By: Wayne Quintero MD Date Dictated: 02/23/2022 17:10:04 Date Transcribed: 02/23/2022 20:50:46 MICHAEL/AMA/MAMIE Receipt ID: [id number] Authenticated by Wayne Quintero MD On 02/24/2022 06:55:32 AM PATIENT NAME: STEFAN MCLEAN at 0655 PATIENT NAME: STEFAN MCLEAN [facility] 2022-02-23 13:41:00 [facility] Brief Op Note REPORT#:[id number] REPORT STATUS: Signed DATE:02/23/22 TIME: 1341 PATIENT: STEFAN MCLEAN UNIT #: [id number] ROOM/BED: : 65 AGE: 56 SEX: M ATTEND: Wayne Quintero MD ADM AUTHOR: Wayne Quintero MD * ALL edits or amendments must be made on the electronic/computer document * Op/Inv Proc Note - Brief Pre-procedure diagnosis: right PTTD right hindfoot DJD Post-procedure diagnosis: same as pre procedure dx Procedures performed: right ST fusion right hindfoot reconstruction Primary Surgeon: Kev Counting Machine Operator(s): Shofoluwe Findings: right PTTD right hindfoot DJD Complications: none Estimated blood loss in ml's: 25 Specimens removed/altered: right PTT at 1617 RPT #:[id number] END OF REPORT [facility] 2022-02-17 10:05:00 [id number] [address] PATIENT NAME: STEFAN MCLEAN ADMIT DATE: ACCOUNT NO: [id number] ROOM NO: AGE: 56 REPORT TYPE: ELECTROCARDIOGRAM SEX: M ADMITTING PHYSICIAN: ATTENDING PHYSICIAN:Wayne Quintero MD Order: [id number] Test Reason : HTN Test Date/Time Stamp: WedFeb 17 2022 10:05:39 Blood Pressure : / mmHG Vent. Rate : 100 BPM Atrial Rate : 100 BPM P-R Int : 194 ms QRS Dur : 086 ms QT Int : 322 ms P-R-T Axes : 049 080 058 degrees QTc Int : 415 ms Normal sinus rhythm Normal ECG No previous ECGs available Confirmed by DELILAH HUERTA MD ([id number]) on 02/18/2022 3:24:00 PM Referred By: Wayne Quintero Confirmed by:DELILAH HUERTA MD [facility]
[2024-11-10 12:39] LABS: Absolute Lymphocytes (CBC) 2.5 K/uL (0.7-4.9); Hematocrit 46.5 % (39.6-49.0); Hemoglobin 16.1 g/dL (13.6-17.9); MCH 30.1 pg (27.0-35.0); MCHC 34.6 g/dL (32.0-36.0); MCV 86.8 fL (80-100); MPV 7.6 fL (7.6-11.3); Nucleated RBC Absolute Count 0.0 (0-0); Nucleated Red Blood Cells % 0.4 % (0-0); RBC Red Blood Cell Count 5.36 M/uL (4.33-5.43); White Blood Count 9.00 thou/uL (4.3-10.9)
[2024-11-10 12:49] LABS: PT Prothrombin Time 14.0 SECONDS (10-13.0); PTT, Activated Partial Thromb 35.4 SECONDS (27.2-37.4); Protime INR 1.25
--- NOTE | 2024-11-10 12:56 | RAD REPORT ---
EXAMINATION: Head Brain Wo Cont CLINICAL INDICATION: Male, 59 years old.Headache;Dizziness TECHNIQUE: Axial CT images from the skull base to the vertex without intravenous contrast. Coronal an d sagittal reformatted images were created from the data set. One or more of the following dose reduction techniques were used: Automated exposure control, adjustment of the mA and/or kV according to patient size, and/or iterative reconstruction. Unless otherwise specified, incidental findings do not require dedicated imaging follow-up. [id number]. COMPARISON: No prior exams FINDINGS: INTRACRANIAL: No acute intracranial hemorrhage. No acute large vascular territory infarct. No hydroce phalus. No mass effect or midline shift. No significant white matter disease. VASCULATURE: No visualized abnormalities in the arteries or dural venous sinuses. SCALP/SKULL: No calvarial fracture identified. No acute soft tissue abnormality. SINUSES: The visualized paranasal sinuses are mostly clear. No significant mastoid fluid. IMPRESSION: No acute intracranial abnormality.
[2024-11-10 13:04] LABS: ALT/SGPT 23.0 U/L (16-61); AST/SGOT 14.0 U/L (15-37); Albumin 4.2 g/dL (3.4-5.0); Albumin/Globulin Ratio 1.1 (1.1-1.8); Alkaline Phosphatase 52.0 U/L (45-117); Anion Gap 9.7 mEq/L (5.0-15.0); BUN Blood Urea Nitrogen 12.0 mg/dL (7-18); Bilirubin Indirect, Calculated 0.6 mg/dL (0.2-0.8); Globulin 3.7 g/dL (2.3-3.5); Glucose Level 143.0 mg/dL (74-106); Magnesium 2.0 mg/dL (1.6-2.4); Potassium 3.7 mEq/L (3.5-5.1); Troponin High Sensitivity 4.3 pg/mL (<58.9)
--- NOTE | 2024-11-10 13:13 | RAD REPORT ---
EXAMINATION: Head angio CLINICAL INDICATION: Male, 59 years old. pulsating feeling;Headache TECHNIQUE: Axial CT images were obtained through the head after intravenous contrast utilizing angiog raphic protocol with 3D post-processing (maximum intensity projection images, volume rendered images and/or shaded surface rendered images). One or more of the following dose reduction technique s were used: Automated exposure control, adjustment of the mA and/or kV according to patient size, and/or iterative reconstruction. Unless otherwise specified, incidental findings do not require dedic ated imaging follow-up. COMPARISON: No prior exam. FINDINGS: RIGHT: ICA: No aneurysm, stenosis, or occlusion. XIOMARA: No aneurysm, stenosis, or occlusion. MCA: No aneurysm, stenosis, or occlusion. SAFETY INSTRUCTION POLICE OFFICER: No aneurysm, stenosis, or occlusion. LEFT: ICA: No aneurysm, stenosis, or occlusion. XIOMARA: No aneurysm, stenosis, or occlusion. MCA: No aneurysm, stenosis, or occlusion. SAFETY INSTRUCTION POLICE OFFICER: No aneurysm, stenosis, or occlusion. type left SAFETY INSTRUCTION POLICE OFFICER. Vertebrobasilar: The vertebral arteries are patent. The basilar artery is normal in appearance. 3D images confirm these findings. IMPRESSION: No occlusion, aneurysm, or hemodynamically significant stenosis identified.
--- NOTE | 2024-11-10 13:16 | RAD REPORT ---
EXAMINATION: Neck Angio CLINICAL INDICATION: Male, 59 years old. PULSATING FEELING, HEADACHE TECHNIQUE: Axial CT images were obtained from the aortic arch to the skull base after intravenous con trast utilizing angiographic protocol with 3D post-processing (maximum intensity projection images, volume rendered images and/or shaded surface rendered images). One or more of the following dose redu ction techniques were used: Automated exposure control, adjustment of the mA and/or kV according to patient size, and/or iterative reconstruction. Unless otherwise specified, incidental findings do not require dedicated imaging follow-up. [id number]. NASCET criteria used. Mild 0-49% stenosis Moderate 50-69% stenosis Severe 70-99% stenosis COMPARISON: No prior exam. FINDINGS: AORTA: Normal RIGHT: - CCA: No flow limiting stenosis (>= 50%). No dissection. - ICA: No flow limiting stenosis (>= 50%). No dissection. - ECA: No flow limiting stenosis (>= 50%). No dissection. LEFT: - CCA: No flow limiting stenosis (>= 50%). No dissection. - ICA: No flow limiting stenosis (>= 50%). No dissection. - ECA: No flow limiting stenosis (>= 50%). No dissection. VERTEBRAL: Patent SOFT TISSUE: Status post C5-6 ACDF. 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 3D images confirm these findings. IMPRESSION: No arterial dissection or stenosis identified within the neck.
--- NOTE | 2024-11-10 13:20 | ER ---
Nurse's Notes [facility] Name: Ellis Girard Age: 59 yrs Sex: Male : 1965 Arrival Date: 11/10/2024 Time: 12:09 Bed 6 Private MD: Diagnosis: Near syncope, headache Presentation: 11/10 12:22 Chief complaint: Patient states: DIZZINESS, HEADACHE, TUAN EYE PRESSURE AND TIRED dd2 FEELING FOR OVER A MONTH. REPORTS WORSE THIS WEEK, MRI SCHEDULED FOR WEDNESDAY. Coronavirus screen: At this time, the client does not indicate any symptoms associated with coronavirus-19. Ebola Screen: No symptoms or risks identified at this time. Initial Sepsis Screen: Does the patient meet any 2 criteria? No. Patient's initial sepsis screen is negative. Does the patient have a suspected source of infection? No. Patient's initial sepsis screen is negative. Risk Assessment: Do you want to hurt yourself or someone else? Patient reports no desire to harm self or others. Onset of symptoms is unknown. 12:22 Method Of Arrival: Ambulatory dd2 12:22 Acuity: NATACHA 3 dd2 Triage Assessment: 12:24 Headache History: The patient has had previous headaches and this one is more severe dd2 than previous episodes. General: Appears in no apparent distress. uncomfortable, Behavior is calm, cooperative, appropriate for age. Pain: Complains of pain in HEAD Pain currently is 6 out of 10 on a pain scale. Pain began X1 MONTH Also complains of nausea. Neuro: Reports dizziness, headache EYE PRESSURE. Historical: - Allergies: 12:24 Iodine; dd2 - PMHx: 12:24 Hypertension; mitral valve prolapse; Sleep Apnea; Hypercholesterolemia; dd2 - PSHx: 12:24 vertebral replacement; dd2 - Immunization history:: Adult Immunizations up to date. - Infectious Disease History:: Denies. - Social history:: Smoking status: Patient denies any tobacco usage or history of. Screenin:32 [facility] ED Fall Risk Assessment (Adult) History of falling in the last 3 months, jl7 including since admission No falls in past 3 months (0 pts) Confusion or Disorientation No (0 pts) Intoxicated or Sedated No (0 pts) Impaired Gait No (0 pts) Mobility Assist Device Used No (0 pt) Altered Elimination No (0 pt) Score/Fall Risk Level 0 - 2 = Low Risk Oriented to surroundings, Maintained a safe environment. Abuse screen: Denies threats or abuse. Denies injuries from another. Nutritional screening: No deficits noted. Tuberculosis screening: No symptoms or risk factors identified. Assessment: 13:00 General: Appears in no apparent distress. Behavior is calm, cooperative. Pain: Denies cf3 pain. Neuro: [place] Agitation-Sedation Scale (RASS): 0 - Alert and Calm Level of Consciousness is awake, alert, obeys commands, Oriented to person, place, time, situation, Mainstreaming Facilitator are equal bilaterally Moves all extremities. Full function Speech is normal, Facial symmetry appears normal, Pupils are PERRLA, Pupil Size: 3 Intact Reports dizziness, since about 1 month ago. Cardiovascular:. Vital Signs: 12:22 BP 164 / 93; Pulse 91; Resp 17; Temp 98.4; Pulse Ox 98% ; Weight 158.76 kg; Height 6 dd2 ft. 4 in. ; 13:00 BP 125 / 74; Pulse 89; Resp 12; Pulse Ox 97% on R/A; cf3 12:22 Body Mass Index 42.60 (158.76 kg, 193.04 cm) dd2 ED Course: 12:14 Patient arrived in ED. cj3 12:17 Cathy Vanegas MD is Attending Physician. sp3 12:[address] RN is Primary Nurse. jl7 12:24 Triage completed. dd2 12:24 Arm band placed on right wrist. dd2 12:24 EKG done, by ED staff, reviewed by Cathy Vanegas MD. ar8 12:31 Initial lab(s) drawn, by in, sent to lab. Missed attempt(s): 20 gauge in left jl7 antecubital area. Bleeding controlled, band aid applied, catheter tip intact. 12:37 CT Head Brain wo Cont In Process Unspecified. EDMS 12:56 CT Head Angio In Process Unspecified. EDMS 12:57 Neck Angio In Process Unspecified. EDMS 13:00 Patient has correct armband on for positive identification. Bed in low position. Call cf3 light in reach. Side rails up X2. Report received from Srikanth Kimble RN. Client placed on continuous cardiac and pulse oximetry monitoring. NIBP monitoring applied. Door closed. Noise minimized. 13:00 No provider procedures requiring assistance completed. Inserted saline lock: 22 gauge cf3 in left forearm, using aseptic technique. 13:27 IV discontinued, intact, bleeding controlled, No redness/swelling at site. Pressure cf3 dressing applied. Administered Medications: No medications were administered Medication: 12:32 VIS not applicable for this client. jl7 Outcome: 13:19 Discharge ordered by . anil 13:27 Discharged to home ambulatory, cf3 13:27 Condition: stable 13:27 Discharge instructions given to patient, family, Instructed on discharge instructions, follow up and referral plans. Demonstrated understanding of instructions, follow-up care, 13:28 Patient left the ED. cf3 Signatures: Dispatcher [employer] EDMS Medhat St RN RN jl7 Cathy Vanegas MD MD sp3 TIFFANIE ZAMBRANO RN RN dd2 Adelaida Adam 3 Bryson Salgado RN RN cf3 Srikanth Kimble RN RN ar8 Corrections: (The following items were deleted from the chart) 13:20 13:00 Neuro: [place] Agitation-Sedation Scale (RASS): 0 - Alert and Calm Level of cf3 Consciousness is awake, alert, obeys commands, Oriented to person, place, time, situation, Mainstreaming Facilitator are equal bilaterally Moves all extremities. Full function Speech is normal, Facial symmetry appears normal, Pupils are PERRLA, Pupil Size: 3 Intact cf3
--- NOTE | 2024-11-10 13:20 | EDPHYS ---
Physician Documentation [facility] Name: Ellis Girard Age: 59 yrs Sex: Male : 1965 Arrival Date: 11/10/2024 Time: 12:09 Bed 6 Private MD: ED Physician Cathy Vanegas HPI: 11/10 13:11 This 59 yrs old Male presents to ER via Ambulatory with complaints of Dizziness, sp3 Headache, Eye Pain - PRESSURE, Lathargic. 13:11 59-year-old male with history of hypertension, mitral valve prolapse, MICHAEL, sp3 hyperlipidemia presents to the ED for a 1 week history of generalized headache, pulsating sensation, eye pain, and near syncope. Patient has seen ENT who said it was not vertigo and has ordered an outpatient MRI scheduled for next week. Patient was still concerned so he came to the ED for further evaluation or to at least have some comfort prior to that MRI. Patient denies any fever, chest pain, shortness of breath, abdominal pain, nausea, vomiting, diarrhea, full syncope, known sick contacts, travel history, or any other signs or symptoms on ROS at this time. Patient is also recently started TRT.. Historical: - Allergies: 12:24 Iodine; dd2 - PMHx: 12:24 Hypertension; mitral valve prolapse; Sleep Apnea; Hypercholesterolemia; dd2 - PSHx: 12:24 vertebral replacement; dd2 - Immunization history:: Adult Immunizations up to date. - Infectious Disease History:: Denies. - Social history:: Smoking status: Patient denies any tobacco usage or history of. ROS: 13:12 Constitutional: Negative for fever, chills, and weight loss, Eyes: Negative for injury, sp3 pain, redness, and discharge, ENT: Negative for injury, pain, and discharge, Neck: Negative for injury, pain, and swelling, Cardiovascular: Negative for chest pain, palpitations, and edema, Respiratory: Negative for shortness of breath, cough, wheezing, and pleuritic chest pain, Abdomen/GI: Negative for abdominal pain, nausea, vomiting, diarrhea, and constipation, Back: Negative for injury and pain, MS/Extremity: Negative for injury and deformity, Skin: Negative for injury, rash, and discoloration, 13:12 All other systems are negative, Exam: 13:13 Constitutional: This is a well developed, well nourished patient who is awake, alert, sp3 and in no acute distress. Head/Face: Normocephalic, atraumatic. Eyes: Pupils equal round and reactive to light, extra-ocular motions intact. Lids and lashes normal. Conjunctiva and sclera are non-icteric and not injected. Cornea within normal limits. Periorbital areas with no swelling, redness, or edema. ENT: Nares patent. No nasal discharge, no septal abnormalities noted. External auditory canals are clear. Oropharynx with no redness, swelling, or masses, exudates, or evidence of obstruction, uvula midline. Mucous membranes moist. Neck: Trachea midline, no thyromegaly or masses palpated, and no cervical lymphadenopathy. Supple, full range of motion without nuchal rigidity, or vertebral point tenderness. No Meningismus. Chest/axilla: Normal chest wall appearance and motion. Nontender with no deformity. No lesions are appreciated. Cardiovascular: Regular rate and rhythm with a normal S1 and S2. No gallops, murmurs, or rubs. Normal PMI, no JVD. No pulse deficits. Respiratory: Lungs have equal breath sounds bilaterally, clear to auscultation and percussion. No rales, rhonchi or wheezes noted. No increased work of breathing, no retractions or nasal flaring. Abdomen/GI: Soft, non-tender, with normal bowel sounds. No distension or tympany. No guarding or rebound. No evidence of tenderness throughout. Back: No spinal tenderness. No costovertebral tenderness. Full range of motion. Skin: Warm, dry with normal turgor. Normal color with no rashes, no lesions, and no evidence of cellulitis. MS/ Extremity: Pulses equal, no cyanosis. Neurovascular intact. Full, normal range of motion. Neuro: Awake and alert, GCS 15, oriented to person, place, time, and situation. Cranial nerves II-XII grossly intact. Motor strength 5/5 in all extremities. Sensory grossly intact. Cerebellar exam normal. Normal gait. Psych: Awake, alert, with orientation to person, place and time. Behavior, mood, and affect are within normal limits. 13:13 ECG was reviewed by the Attending Physician. EKG demonstrates normal sinus rhythm at 87 bpm with a first-degree AV block with MS interval 212 ms, normal QRS, normal axis and normal ST/T-segment's without evidence of acute ischemia. Vital Signs: 12:22 BP 164 / 93; Pulse 91; Resp 17; Temp 98.4; Pulse Ox 98% ; Weight 158.76 kg; Height 6 dd2 ft. 4 in. ; 13:00 BP 125 / 74; Pulse 89; Resp 12; Pulse Ox 97% on R/A; cf3 12:22 Body Mass Index 42.60 (158.76 kg, 193.04 cm) dd2 MDM: 12:18 Medical Screening Exam initiated sp3 13:14 Data reviewed: vital signs, nurses notes, lab test result(s), EKG, radiologic studies. sp3 ED course: 59-year-old male with near syncope and headache type symptoms. Differential diagnosis includes idiopathic headache, TIA/CVA spectrum, cerebral aneurysm, other intracranial process, testosterone side effect, among others. Workup will include CT scan of the head noncontrast, CT scan of the neck and brain angiogram, general labs, EKG and general supportive care. Vital signs are normal with mild bump in blood pressure at 164/93. Patient is in no acute distress speaking and acting normally and very interactive with staff joking in nature. Disposition pending workup and patient course. If workup is negative, we will safely discharge patient home with next step being his MRI scheduled for next week.. 13:18 ED course: Full workup negative including angiograms. Will safely discharge patient sp3 home at this time.. 11/10 12:26 Order name: Basic Metabolic Panel; Complete Time: 13: 3 11/10 12:26 Order name: CBC with Diff; Complete Time: 13: 3 11/10 12:26 Order name: Hepatic Function; Complete Time: 13: 3 11/10 12:26 Order name: Magnesium; Complete Time: 13:06 3 11/10 12:26 Order name: Protime (+inr); Complete Time: 13:06 3 11/10 12:26 Order name: Ptt, Activated; Complete Time: 13:06 3 11/10 12:26 Order name: Troponin High Sensitivity; Complete Time: 13:06 3 11/10 12:26 Order name: CT Head Brain wo Cont; Complete Time: 13:06 3 11/10 12:37 Order name: CT Head Angio; Complete Time: 13:18 sp3 11/10 12:52 Order name: Neck Angio; Complete Time: 13:18 EDMS 11/10 12:26 Order name: Cardiac monitoring; Complete Time: 12:27 sp3 11/10 12:26 Order name: EKG - Nurse/Tech; Complete Time: 12:27 sp3 11/10 12:26 Order name: IV Saline Lock; Complete Time: 13:06 sp3 11/10 12:26 Order name: Labs collected and sent; Complete Time: 12:32 sp3 11/10 12:26 Order name: NPO; Complete Time: 12:27 sp3 11/10 12:26 Order name: O2 Per Protocol; Complete Time: 12:27 sp3 11/10 12:26 Order name: O2 Sat Monitoring; Complete Time: 12:27 sp3 Administered Medications: No medications were administered Disposition Summary: 11/10/24 13:19 Discharge Ordered Notes: Location: Home sp3 Condition: Stable sp3 Diagnosis - Near syncope, headache sp3 Followup: sp3 - With: Private Physician - When: Upon discharge from the Emergency Department - Reason: Continuance of care Discharge Instructions: - Discharge Summary Sheet sp3 - Near-Syncope sp3 Forms: - Medication Reconciliation Form sp3 - Antibiotic Education sp3 - Prescription Opioid Use sp3 - Patient Portal Instructions sp3 - Leadership Thank You Letter sp3 Signatures: Dispatcher [employer] EDCathy Sweeney MD MD sp3 TIFFANIE ZAMBRANO, RN RN dd2 Bryson Salgado, RN RN cf3 Corrections: (The following items were deleted from the chart) 12:26 12:26 BASIC METABOLIC PANEL+C.LAB.BRZ ordered. EDMS EDMS 12: 12:26 CBC+H.LAB.BRZ ordered. EDMS EDMS 12:26 12:26 HEPATIC FUNCTION+C.LAB.BRZ ordered. EDMS EDMS 12: 12:26 MAGNESIUM+C.LAB.BRZ ordered. EDMS EDMS 12:26 12:26 PROTIME (+INR)+COAG.LAB.BRZ ordered. EDMS EDMS 12:26 12:26 PTT, ACTIVATED+COAG.LAB.BRZ ordered. EDMS EDMS 12:26 12:26 Troponin High Sensitivity+C.LAB.BRZ ordered. EDMS EDMS 12: 12:27 Head Brain Wo Cont+CT.RAD.HARESH ordered. EDMS EDMS 13:13 13:11 59-year-old male with history of hypertension, mitral valve prolapse, MICHAEL, sp3 hyperlipidemia presents to the ED for a 1 week history of generalized headache, pulsating sensation, eye pain, and near syncope. Patient has seen ENT who said it was not vertigo and has ordered an outpatient MRI scheduled for next week. Patient was still concerned so he came to the ED for further evaluation or to at least have some comfort prior to that MRI. Patient denies any fever, chest pain, shortness of breath, abdominal pain, nausea, vomiting, diarrhea, full syncope, known sick contacts, travel history, or any other signs or symptoms on ROS at this time.. sp3
[2024-11-10 13:45] VITALS: TEMP 98.4
[2024-11-10 13:46] VITALS: BP 125/74; O2SAT 97
--- NOTE | 2024-11-13 16:38 | P.HP ---
Certification for Inpatient Patient admitted to: Observation With expected LOS: <2 Midnights Patient will require the following post-hospital care: None Practitioner: I am a practitioner with admitting privileges, knowledge of patient current condition, hospital course, and medical plan of care. Services: Services provided to patient in accordance with Admission requirements found in Title 42 Section 412.3 of the Code of Federal Regulations Patient History Date of Service: 11/13/24 Reason for admission: Chest pain, dizziness History of Present Illness: 59-year-old male with history of hypertension, hyperlipidemia, mitral valve prolapse, prediabetes on metformin presents to the emergency department chief complaint of dizziness and chest pain. He reports that chest pain has been going on for around 1 week now, intermittent, seems to be worse with exertion. Additionally has been feeling dizzy as well primarily with movement of his head. He saw ENT outpatient recently who felt that he would benefit with an MRI, he has not yet received this test. He is still suffering from dizziness. Patient was evaluated in the emergency department his labs are significant for initial high sensitive troponin of 4.0 other labs are unremarkable he did have a CT of his head during a recent ER visit at our hospital as well as angiograms of his head and neck. CT head without contrast at that time was negative for acute findings. CT angio of the head and neck were negative for significant stenosis/LVO. Patient be admitted under observation for ACS rule out/dizziness Allergies Iodinated Contrast Media Allergy (Verified 02/23/19 15:17) Anaphylaxis codeine Adverse Reaction (Verified 02/23/19 15:17) agitation, hyperactivity Home Medications: Allopurinol 300 mg PO DAILY 04/29/17 Gabapentin 600 mg PO BID 04/29/17 Lisinopril/Hydrochlorothiazide [Lisinopril-Hctz 10-12.5 mg Tab] 1 each PO DAILY 04/29/17 Montelukast [Singulair*] 10 mg PO DAILY 04/29/17 Zolpidem Tartrate [Ambien] 10 mg PO BEDTIME 04/29/17 Cetirizine HCl [Zyrtec] 10 mg PO DAILY 02/23/19 Sulfamethoxazole/Trimethoprim [Bactrim Ds Tablet] 1 each PO BID #12 tablet 02/27/19 Tramadol HCl/Acetaminophen [Ultracet Tablet] 1 each PO Q4H PRN #30 tablet 01/20/20 - Past Medical/Surgical History Diabetic: No -: mitral valve prolapse -: HTN -: sleep apnea -: morbid obesity -: Hernia repair; rotator cuff BL; neck - Family History Father -: Heart disease - Social History Alcohol use: No CD- Drugs: No Caffeine use: Yes Place of Residence: Home Review of Systems 10-point ROS is otherwise unremarkable Cardiovascular: Chest Pain Neurological: Other (Dizziness) Physical Examination - Vital Signs Temperature: 98.4 F Blood Pressure: 125/74 Pulse: 89 Respirations: 12 - Physical Exam General: Alert, In no apparent distress, Oriented x3 HEENT: Atraumatic, PERRLA, EOMI Neck: Supple, 2+ carotid pulse no bruit, No LAD Respiratory: Clear to auscultation bilaterally, Normal air movement Cardiovascular: Regular rate/rhythm, Normal S1 S2 Gastrointestinal: Normal bowel sounds, No tenderness Musculoskeletal: No tenderness Integumentary: No rashes Neurological: Normal speech, Normal strength at 5/5 x4 extr, Normal affect Assessment and Plan - Plan Assessment: Chest pain rule out ACS Dizziness Prediabetes Hypertension Plan: Chest pain rule out ACS Last cardiac evaluation coronary angiogram around 10 years agonormal Trend troponins and monitor on telemetry Cardiology consultation Daily aspirin Dizziness Had outpatient evaluation from ENT who recommended MRI Has not yet received MRI Still dizzy Obtain MRI brain without contrast to further evaluate Prediabetes ACHS Accu-Chek, sliding scale insulin Hypertension Continue home medications when verified DVT PPX: Lovenox Code status: Full code Discharge Plan: Home Plan to discharge in: 24 Hours - Advance Directives Does patient have a Living Will: No Does patient have a Durable POA for Healthcare: No - Code Status/Comfort Care Code Status Assessed: Yes (Full code) Critical Care: No Time Spent Managing Pts Care (In Minutes): 70
== END 2024-11-10 13:28 | disposition home or self-care (01) ==
LOC: ER 12:09
DX: R55 Syncope and collapse (principal); R51.9 Headache, unspecified; R07.9 Chest pain, unspecified; I10 Essential (primary) hypertension; E78.00 Pure hypercholesterolemia, unspecified; E66.01 Morbid (severe) obesity due to excess calories
CPT/HCPCS: 93005; 85025; 80048; 36415; 83735; 85610; 80076; 85730; 84484; 70450; 70496; 70498; 99284; Q9967

== ENCOUNTER 2024-11-13 14:01 | Inpatient (IN) | payer BC ==
--- OUTSIDE RECORDS SUMMARY | 2024-11-13 14:04 | XMS REPORT | Continuity of Care Document ---
Author Name Unknown Address [address] [place] [address] [facility] Address [address] [place] [address] Care Team Providers Care Silver Brazer Name Role Phone Wayne Quintero Attending Clinician Unavailable Silvia Attending Clinician UnavailWAYNE Lang Attending Clinician Unava ilable FOG_A_Provider Attending Clinician Unavailable Wayne Quintero Admitting Clinician Unavailable Amalia Jamison Cardiology Admitting Clinician Unavailable Silvia Admitting Clinician Unavailelyse GRANT_A_Provider Admitting Clinician Unavailable Payers Payer Name Policy Type Policy Number Effective Date Expirati on Date Source [facility] [id number] Problems Condition Name Condition Details Condition Category Status Onset Date Resolution Date Last Treatment Date Treating Clinician Comments Source Postoperat rolo pain Postoperat rolo Pain Problem Active 07-25 00:00: 00 [facility] [...] d Contrast Media DA Active SV ANAPHYLAXIS 0 9-02 00:00: 00 [facility] Iodinate d Contrast Media DA Active SV ANAPHYLAXIS 0 5-08 00:00: 00 [facility] Iodinate d Contrast Media DA Active SV ANAPHYLAXIS 2023-02 2-02 00:00: 00 [facility] Iodinate d Contrast Media DA Active SV ANAPHYLAXIS 2023-0 5-14 00:00: 00 [facility] Iodinate d Contrast Media DA Active SV ANAPHYLAXIS 0 1-16 00:00: 00 [facility] Iodinate d Contrast Media DA Active SV ANAPHYLAXIS 2022-0 1-10 00:00: 00 [facility] Social History Smoking Status Start Date Stop Date Source Never Smoker [facility] Medications Ordered Medication [...] End Date/Time Encounter Type Admission Type Attending [facility] Care Facility Care Department Encounter ID Source 2022-08-28 15:00:00 Inpatient Wayne VinesTO RADI [id number] [facility] 2022-07-10 15:33:08 Outpatient [facility] [id number] [facility] 2024-10-10 11:21:00 2024-10-10 11:21:00 Outpatient Wayne Vines [facility] RADI [id number] [facility] 2024-06-19 08:07:00 2024-06-19 08:07:00 Outpatient Wayne Vines [facility] SURG [id number] [facility] 2024-06-02 12:12:00 2024-06-02 12:12:00 Outpatient Wayne VinesTO RADI [id number] [facility] 2024-03-29 09:15:00 2024-03-29 09:15:00 Outpatient Wayne VinesTO RADI [id number] [facility] 2024-01-11 13:54:00 2024-01-11 13:54:00 Outpatient Wayne VinesTO RADI [id number] [facility] 2023-12-28 11:57:00 2023-12-28 11:57:00 Outpatient Wayne Vines [facility] RADI [id number] [facility] 2023-12-28 00:00:00 2023-12-28 00:00:00 Wayne Quintero MD: [address] [place] [address] , Ph. [phone] [place] [facility] [place] [id number] [facility] 2023-10-26 00:00:00 2023-10-26 00:00:00 Wayne Quintero MD: [address] [place] [address] , Ph. [phone] [place] [facility] [place] [id number] [facility] 2023-09-07 00:00:00 2023-09-07 00:00:00 Wayne Quintero MD: [address] [place] [address] , Ph. [phone] [place] [facility] [address] [place] [id number] [facility] 2023-08-10 00:00:00 2023-08-10 00:00:00 Wayne Quintero MD: [address] [place] [address] , Ph. [phone] [place] [facility] [address] [place] [id number] [facility] 2023-07-19 11:51:00 2023-07-20 11:28:00 Inpatient Wayne VinesTO SURG [id number] [facility] 2023-07-19 00:00:00 2023-07-19 00:00:00 Wayne Quintero MD: [address] [place] [address] , Ph. [phone] [facility] [place] [facility] [id number] [facility] 2023-05-03 00:00:00 2023-05-03 00:00:00 Outpatient FOG_Kev_ Wayne_ [facility] [id number] [facility] 2023-03-17 11:01:00 2023-03-17 23:59:00 Outpatient WAYNE QUINTERO [facility] [id number] [facility] 2023-03-10 00:00:00 2023-03-10 00:00:00 Wayne Quintero MD: [address] [place] [address] , Ph. [phone] [facility] [place] [facility] [address] [id number] [facility] 2022-09-08 08:19:00 2022-09-08 23:59:00 Outpatient WAYNE QUINTERO [id number] 2022-05-27 00:00:00 2022-05-27 00:00:00 Wayne Quintero MD: [address] [place] [address] , Ph. [phone] [facility] [place] [facility] [address] [id number] [facility] 2022-04-10 00:00:00 2022-04-10 00:00:00 Wayne Quintero MD: [address] [place] [phone] , Ph. [phone] [facility] [place] [facility] [address] [id number] [facility] 2022-03-11 00:00:00 2022-03-11 00:00:00 Wayne Quintero MD: [address] [place] [phone] , Ph. [phone] [place] [facility] [address] [id number] [facility] 2022-02-23 12:03:00 2022-02-25 12:20:00 Inpatient Wayne Vines [facility] SURG [id number] [facility] 2022-02-23 00:00:00 2022-02-23 00:00:00 Wayne Quintero MD: [address] [place] [phone] , Ph. [phone] [facility] [place] [facility] [id number] [facility] 2022-01-21 00:00:00 2022-01-21 00:00:00 Wayne Quintero MD: [address] [place] [phone] , Ph. [phone] [facility] [place] [facility] [address] [place] [id number] [facility] Results Test Description Test Time Test Comments Results Result Co mments Source [id number] 09:28:00* Test Item Value Reference Range Interpretation Comme nts GLUBED (test code = GLUBED) 105 mg/dL 60-99 H The normal fasti ng blood glucose range for a non-diabeticadult is 60-99 mg/dL. Two hours after meals, normal blood glucose levels should beless than 140 mg/dL.Please note new normal range. [id number] 09:17:00* Test Item Value Reference Range Interpretation Comme nts glubed (test code = glubed) 105 mg/dL 60-99 H performing lab: (test code = performing lab:) [facility] MedicineBASI METABOLIC [id number] 13:46:00* Test Item Value Reference Range Interpretation [...] CA) 9.1 mg/dL 8.5-10.1 N COMPREHENSIVE METABOLIC [id number] 10:23:00* Test Item Value Reference Range Interpretation [...] ALKP) 56 U/L 46-116 N CBC W/AUTO [id number] 09:58:00* Test Item Value Reference Range Interpretation [...] Notes Date/Time Note Provider Source 2024-06-19 12:10:00 [id number] [facility] [address] [place] [address] PATIENT NAME: LAILA MCLEAN ADMIT DATE: 06/19/24 ACCOUNT NO: [id number] ROOM NO: AGE: 58 REPORT TYPE: OPERATIVE REPORT SEX: M ADMITTING PHYSICIAN: ATTENDING PHYSICIAN:Wayne Quintero MD OPERATION DATE: 06/19/2024 PREOPERATIVE DIAGNOSES: 1. Right ankle arthritis. 2. Right ankle pain with synovitis/arthrofibrosis. POSTOPERATIVE DIAGNOSES: 1. Right ankle arthritis. 2. Right ankle pain with synovitis/arthrofibrosis. PROCEDURE: Right ankle arthroscopic debridement, extensive. SURGEON: Wayne Quintero M.D. FAMILY INTERVENTION SPECIALIST: Efrain Espinal DO ANESTHESIA: General and local. [...] Date Transcribed: 06/19/2024 12:29:55 MICHAEL/JOEY Receipt ID: [id number] Authenticated by Wayne Quintero MD On 06/20/2024 07:00:07 AM at 0700 PATIENT NAME: LAILA MCLEAN [facility] 2024-06-19 11:09:00 [facility] Brief Op Note REPORT#:[id number] REPORT STATUS: Signed REPORT INITIALIZATION DATE:06/19/24 TIME: 1108 PATIENT: LAILA MCLEAN UNIT #: [id number] ROOM/BED: : 65 AGE: 58 SEX: M ATTEND: Wayne Quintero MD ADM AUTHOR: Wayne Quintero MD REPT SERVICE DT/TIME: 06/19/24 1109 * ALL edits or amendments must be made on the electronic/computer document * Op/Inv Proc Note - Brief Pre-procedure diagnosis: right ankle DJD right ankle impingement Post-procedure diagnosis: same as pre procedure dx Procedures performed: right ankle scope Primary Surgeon: Kev Features Editor(s): Kylie Findings: right ankle DJD right ankle impingement Complications: none Estimated blood loss in ml's: 10 Specimens removed/altered: none at 1155 RPT #:[id number] [facility] 06[facility]52:00 [facility] Clinical Note REPORT#:[id number] REPORT STATUS: Signed REPORT INITIALIZATION DATE:07/20/23 TIME: 651 PATIENT: LAILA MCLEAN UNIT #: [id number] ROOM/BED: Y304-B : 65 AGE: 57 SEX: M ATTEND: Wayne Quintero MD ADM AUTHOR: Wayne Quintero MD REPT SERVICE DT/TIME: 07/20/23 0652 * ALL edits or amendments must be made on the electronic/computer document * Clinical Note Note: pain under control afebrile VSS RLE--splint intact, +DF/PF toes, LT intact, good cap refill in toes plan--d/c home at 0652 RPT #:[id number] END OF REPORT [facility] 2023-07-19 12:05:00 [id number] [facility] [address] [place] [address] PATIENT NAME: LAILA MCLEAN ADMIT DATE: 07/19/23 ACCOUNT NO: [id number] ROOM NO: Y.304 AGE: 57 REPORT TYPE: OPERATIVE REPORT SEX: M ADMITTING PHYSICIAN:Wayne Quintero MD ATTENDING PHYSICIAN:Wayne Quintero MD OPERATION DATE: 07/19/2023 PREOPERATIVE DIAGNOSIS: Right subtalar fusion nonunion. POSTOPERATIVE DIAGNOSIS: Right subtalar fusion nonunion. PROCEDURES: Right subtalar revision fusion with allograft and iliac crest bone marrow aspirate. SURGEON: Wayne Quintero M.D. FAMILY INTERVENTION SPECIALIST: Schuyler Marcial DO. ANESTHESIA: General plus local. [...] the subtalar joint was stabilized with three [place] partially threaded headless cannulated screws with two [...] Dictated: 07/19/2023 12:05:23 Date Transcribed: 07/19/2023 12:22:49 /[facility] Receipt ID: [id number] Authenticated by Wayne Quintero MD On 07/20/2023 06:55:53 AM at 0655 PATIENT NAME: LAILA MCLEAN [facility] 2023-07-19 10:02:00 [facility] Brief Op Note REPORT#:[id number] REPORT STATUS: Signed REPORT INITIALIZATION DATE:07/19/23 TIME: 1002 PATIENT: LAILA MCLEAN UNIT #: [id number] ROOM/BED: : 65 AGE: 57 SEX: M ATTEND: Wayne Quintero MD ADM AUTHOR: Wayne Quintero MD REPT SERVICE DT/TIME: 07/19/23 1002 * ALL edits or amendments must be made on the electronic/computer document * Op/Inv Proc Note - Brief Pre-procedure diagnosis: right subtalar fusion nonunion Post-procedure diagnosis: same as pre procedure dx Procedures performed: right revision subtalar fusion with ICBG/allgraft Primary Surgeon: Kev Features Editor(s): Aniket Findings: right subtalar fusion nonunion Complications: none Estimated blood loss in ml's: 25 Specimens removed/altered: none at 1150 RPT #:[id number] END OF REPORT [facility] 2023-06-22 12:25:00 [phone] [place] [address] PATIENT NAME: LAILA MCLEAN ADMIT DATE: ACCOUNT NO: [id number] ROOM NO: AGE: 57 REPORT TYPE: ELECTROCARDIOGRAM SEX: M ADMITTING PHYSICIAN: ATTENDING PHYSICIAN:Wayne Quintero MD Order: [id number] Test Reason : PREOP CLEARANCE H/O HTN [...] When compared with ECG of 17-FEB-2022 10:05, CA interval has increased Confirmed by DELILAH HUERTA MD ([id number]) on 07/14/2023 8:43:05 AM Referred By: Wayne Quintero Confirmed by:DELILAH HUERTA MD PATIENT NAME: LAILA MCLEAN [facility] 2022-02-24 07:02:00 [facility] Clinical Note REPORT#:[id number] REPORT STATUS: Signed DATE:02/24/22 TIME: 0702 PATIENT: STEFAN MCLEAN UNIT #: [id number] ROOM/BED: [address] : [birth year] AGE: 56 SEX: M ATTEND: Wayne Quintero MD ADM AUTHOR: Wayne Quintero MD * ALL edits or amendments must be made on the electronic/computer document * Clinical Note Note: pain under control afebrile VSS RLE--splint intact, +DF/PF toes, LT intact, good cap refill in toes plan--d/c home at 0703 RPT #:[id number] END OF REPORT [facility] 2022-02-23 17:10:00 [id number] [place] [address] PATIENT NAME: STEFAN MCLEAN ADMIT DATE: 02/23/22 ACCOUNT NO: [id number] ROOM NO: Y.306 AGE: 56 REPORT TYPE: [...] spring ligament repair/reconstruction. SURGEON: Wayne Quintero MD FAMILY INTERVENTION SPECIALIST: Shubham Quintero MD ANESTHESIA: General plus local. [...] repaired with #2 FiberWire suture in a [id number] fashion. We then placed an Arthrex internal [...] Date Transcribed: 02/23/2022 20:50:46 MICHAEL/AMA/MAMIE Receipt ID: [id number] Authenticated by Wayne Quintero MD On 02/24/2022 06:55:32 AM PATIENT NAME: STEFAN MCLEAN at 0655 PATIENT NAME: STEFAN MCLEAN [facility] 2022-02-23 13:41:00 [facility] Brief Op Note REPORT#:[id number] REPORT STATUS: Signed DATE:02/23/22 TIME: 1341 PATIENT: STEFAN MCLEAN UNIT #: [id number] ROOM/BED: : 65 AGE: 56 SEX: M ATTEND: Wayne Quintero MD ADM AUTHOR: Wayne Quintero MD * ALL edits or amendments must be made on the electronic/computer document * Op/Inv Proc Note - Brief Pre-procedure diagnosis: right PTTD right hindfoot DJD Post-procedure diagnosis: same as pre procedure dx Procedures performed: right ST fusion right hindfoot reconstruction Primary Surgeon: Kev Features Editor(s): Shofoluwe Findings: right PTTD right hindfoot DJD Complications: none Estimated blood loss in ml's: 25 Specimens removed/altered: right PTT at 1617 RPT #:[id number] END OF REPORT [facility] 2022-02-17 10:05:00 [id number] [address] PATIENT NAME: STEFAN MCLEAN ADMIT DATE: ACCOUNT NO: [id number] ROOM NO: AGE: 56 REPORT TYPE: ELECTROCARDIOGRAM SEX: M ADMITTING PHYSICIAN: ATTENDING PHYSICIAN:Wayne Quintero MD Order: [id number] Test Reason : HTN Test Date/Time Stamp: [...] ECGs available Confirmed by DELILAH HUERTA MD ([id number]) on 02/18/2022 3:24:00 PM Referred By: Wayne Quintero Confirmed by:DELILAH HUERTA MD [facility]
[2024-11-13 14:51] LABS: Absolute Lymphocytes (CBC) 2.6 K/uL (0.7-4.9); Hematocrit 43.8 % (39.6-49.0); Hemoglobin 15.3 g/dL (13.6-17.9); MCH 30.0 pg (27.0-35.0); MCHC 34.9 g/dL (32.0-36.0); MCV 85.9 fL (80-100); MPV 7.4 fL (7.6-11.3); Nucleated RBC Absolute Count 0.0 (0-0); Nucleated Red Blood Cells % 0.2 % (0-0); RBC Red Blood Cell Count 5.10 M/uL (4.33-5.43); White Blood Count 8.20 thou/uL (4.3-10.9)
[2024-11-13 15:00] LABS: PT Prothrombin Time 13.2 SECONDS (10-13.0); Protime INR 1.17
[2024-11-13 15:28] LABS: ALT/SGPT 25 U/L (16-61); Albumin 3.6 g/dL (3.4-5.0); Albumin/Globulin Ratio 1.0 (1.1-1.8); Alkaline Phosphatase 46 U/L (45-117); Anion Gap 10.6 mEq/L (5.0-15.0); BUN Blood Urea Nitrogen 15 mg/dL (7-18); Globulin 3.6 g/dL (2.3-3.5); Glucose Level 111 mg/dL (74-106); NT PRO-BNP 12 pg/mL (<125); Troponin High Sensitivity 4.0 pg/mL (<58.9)
--- NOTE | 2024-11-13 15:32 | RAD REPORT ---
EXAM: Chest Single View HISTORY: 59 years Male CHEST PAIN COMPARISON: 01/16/2020 FINDINGS: LUNGS/PLEURA: The lungs are clear. No pleural effusions or pneumothorax. No pulmonary edema. CARDIAC/MEDIASTINUM: The cardiac silhouette is within normal limits. UPPER ABDOMEN: No significant abnormality. BONES: No acute abnormality. LINES/TUBES/OTHER: N/A IMPRESSION: No evidence of acute cardiopulmonary disease.
[2024-11-13 15:36] LABS: AST/SGOT 18 U/L (15-37); Potassium 3.6 mEq/L (3.5-5.1)
[2024-11-13 15:37] LABS: Bilirubin Indirect, Calculated 0.1 mg/dL (0.2-0.8); Magnesium 1.9 mg/dL (1.6-2.4)
--- NOTE | 2024-11-13 15:42 | EDPHYS ---
Physician Documentation [facility] Name: Ellis Girard Age: 59 yrs Sex: Male : 1965 Arrival Date: 11/13/2024 Time: 14:01 Bed 4 Private MD: ED Physician Cathy Vanegas HPI: 11/13 15:01 This 59 yrs old Male presents to ER via Ambulatory with complaints of Chest Pain, sp3 Dizziness. 15:01 59-year-old male with history of hypertension, mitral valve prolapse, MICHAEL, sp3 hyperlipidemia presents to the ED for chief complaint chest pain over the last 2 to 3 days. Patient was seen here for headache and other symptoms last week by me. Patient states that that is somewhat resolved but now has had some chest pain. He was offered admission last week but this time he states he wants to stay. He denies any ongoing headache, back pain, shortness of breath, abdominal pain, vomiting, diarrhea or any other signs or symptoms on ROS at this time. Chest pain is episodic and described as dull.. Historical: - Allergies: 14:17 Iodine; jj7 - PMHx: 14:17 Hypercholesterolemia; Hypertension; mitral valve prolapse; Sleep Apnea; jj7 - PSHx: 14:17 vertebral replacement; jj7 - Immunization history:: Adult Immunizations up to date. - Infectious Disease History:: Denies. - Social history:: Smoking status: Patient denies any tobacco usage or history of. Patient/guardian denies using alcohol, street drugs, IV drugs. ROS: 15:12 Constitutional: Negative for fever, chills, and weight loss, Eyes: Negative for injury, sp3 pain, redness, and discharge, ENT: Negative for injury, pain, and discharge, Neck: Negative for injury, pain, and swelling, Respiratory: Negative for shortness of breath, cough, wheezing, and pleuritic chest pain, Abdomen/GI: Negative for abdominal pain, nausea, vomiting, diarrhea, and constipation, Back: Negative for injury and pain, MS/Extremity: Negative for injury and deformity, Skin: Negative for injury, rash, and discoloration, Neuro: Negative for headache, weakness, numbness, tingling, and seizure, Psych: Negative for depression, anxiety, suicide ideation, homicidal ideation, and hallucinations, Allergy/Immunology: Negative for hives, rash, and allergies, Endocrine: Negative for neck swelling, polydipsia, polyuria, polyphagia, and marked weight changes, 15:12 All other systems are negative, Exam: 15:12 Constitutional: This is a well developed, well nourished patient who is awake, alert, sp3 and in no acute distress. Head/Face: Normocephalic, atraumatic. Eyes: Pupils equal round and reactive to light, extra-ocular motions intact. Lids and lashes normal. Conjunctiva and sclera are non-icteric and not injected. Cornea within normal limits. Periorbital areas with no swelling, redness, or edema. Neck: Trachea midline, no thyromegaly or masses palpated, and no cervical lymphadenopathy. Supple, full range of motion without nuchal rigidity, or vertebral point tenderness. No Meningismus. Chest/axilla: Normal chest wall appearance and motion. Nontender with no deformity. No lesions are appreciated. Cardiovascular: Regular rate and rhythm with a normal S1 and S2. No gallops, murmurs, or rubs. Normal PMI, no JVD. No pulse deficits. Respiratory: Lungs have equal breath sounds bilaterally, clear to auscultation and percussion. No rales, rhonchi or wheezes noted. No increased work of breathing, no retractions or nasal flaring. Abdomen/GI: Soft, non-tender, with normal bowel sounds. No distension or tympany. No guarding or rebound. No evidence of tenderness throughout. Back: No spinal tenderness. No costovertebral tenderness. Full range of motion. Skin: Warm, dry with normal turgor. Normal color with no rashes, no lesions, and no evidence of cellulitis. MS/ Extremity: Pulses equal, no cyanosis. Neurovascular intact. Full, normal range of motion. Neuro: Awake and alert, GCS 15, oriented to person, place, time, and situation. Cranial nerves II-XII grossly intact. Motor strength 5/5 in all extremities. Sensory grossly intact. Cerebellar exam normal. Normal gait. 15:12 ECG was reviewed by the Attending Physician. EKG demonstrates sinus tachycardia 100 bpm with normal intervals, normal QRS, normal axis, occasional PVC. Vital Signs: 14:03 BP 145 / 94; Pulse 99; Resp 20; Temp 97.4; Pulse Ox 98% ; Weight 158.76 kg; Height 6 j7 ft. 4 in. ; 15:00 BP 118 / 78; Pulse 85; Resp 16; Pulse Ox 95% on R/A; jp5 16:00 BP 120 / 76 (/lg); Pulse 81; Resp 20; Pulse Ox 98% on R/A; jp5 17:00 BP 124 / 79; Pulse 81; Resp 20; Pulse Ox 97% on R/A; jp5 17:30 BP 131 / 80; Pulse 78; Resp 20; Temp 98(O); Pulse Ox 97% on R/A; jp5 19:11 BP 127 / 73; Pulse 82; Resp 20 S; Pulse Ox 98% on R/A; ha1 14:03 Body Mass Index 42.60 (158.76 kg, 193.04 cm) 7 NIH Stroke Scale Scores: 14:00 NIHSS Score: 0 jp5 MDM: 14:15 Medical Screening Exam initiated sp3 15:13 Data reviewed: vital signs, nurses notes, lab test result(s), EKG, radiologic studies. sp3 ED course: 59-year-old male with chest pain. Differential diagnosis includes acute coronary syndrome, musculoskeletal, GI, pulmonary, among others. Will get standard cardiac workup and place patient in observation. Clinically I am not highly suspicious for sepsis, shock, PE, or any other critical process.. 11/13 14:19 Order name: Basic Metabolic Panel; Complete Time: 15:38 sp3 11/13 14:19 Order name: CBC with Diff; Complete Time: 15:18 sp3 11/13 14:19 Order name: LFT's; Complete Time: 15:38 sp3 11/13 14:19 Order name: Magnesium; Complete Time: 15:38 sp3 11/13 14:19 Order name: NT PRO-BNP; Complete Time: 15:38 sp3 11/13 14:19 Order name: PT-INR; Complete Time: 15:18 sp3 11/13 14:19 Order name: Troponin HS; Complete Time: 15:38 sp3 11/13 14:25 Order name: Glucose, Ancillary Testing; Complete Time: 15:18 EDMS 11/13 16:24 Order name: Basic Metabolic Panel EDMS 11/13 16:24 Order name: Basic Metabolic Panel EDMS 11/13 16:24 Order name: Basic Metabolic Panel EDMS 11/13 16:24 Order name: Basic Metabolic Panel EDMS 11/13 16:24 Order name: CBC with Automated Diff EDMS 11/13 16:25 Order name: CBC with Automated Diff EDMS 11/13 16:25 Order name: CBC with Automated Diff EDMS 11/13 16:25 Order name: CBC with Automated Diff EDMS 11/13 16:25 Order name: Lipid Profile EDMS 11/13 16:25 Order name: Lipid Profile EDMS 11/13 16:25 Order name: T4 Free EDMS 11/13 16:25 Order name: T4 Free EDMS 11/13 16:25 Order name: Thyroid Stimulating Hormone EDMS 11/13 16:25 Order name: Thyroid Stimulating Hormone EDMS 11/13 16:25 Order name: Troponin High Sensitivity EDMS 11/13 16:25 Order name: Troponin High Sensitivity EDMS 11/13 16:25 Order name: Troponin High Sensitivity EDMS 11/13 14:19 Order name: XRAY Chest (1 view); Complete Time: 15:38 sp3 11/13 16:25 Order name: Brain Wo Cont EDMS 11/13 16:43 Order name: CONS Physician Consult EDMS 11/13 14:19 Order name: Cardiac monitoring; Complete Time: 14:32 sp3 11/13 14:19 Order name: EKG - Nurse/Tech; Complete Time: 14:32 sp3 11/13 14:19 Order name: IV Saline Lock; Complete Time: 14:32 sp3 11/13 14:19 Order name: Labs collected and sent; Complete Time: 14:32 sp3 11/13 14:19 Order name: O2 Per Protocol; Complete Time: 14:32 sp3 11/13 14:19 Order name: O2 Sat Monitoring; Complete Time: 14:32 sp3 Administered Medications: No medications were administered Disposition Summary: 11/13/24 15:41 Hospitalization Ordered Notes: Hospitalization Status: Observation sp3 Provider: Obinna Ellison sp3 Location: Telemetry/MedSurg (observation) sp3 Condition: Stable sp3 Problem: new sp3 Symptoms: are unchanged sp3 Bed/Room Type: Standard sp3 Room Assignment: 412(11/13/24 16:35) bd Diagnosis - Chest pain sp3 Forms: - Medication Reconciliation Form sp3 - SBAR form sp3 - Leadership Thank You Letter sp3 NIH Stroke Scale - NIH Stroke Score Date: 11/13/2024 Time: 14:00 Total Score = 0 10. Dysarthria (speech clarity - read or repeat words) - 0(Normal) 11. Extinction and Inattention (visual/tactile/auditory/spatial/personal) - 0(No abnormality) 1a. Level of Consciousness (LOC) - 0(Alert) 1b. Level of Consciousness (LOC) (Month \T\ Age) - 0(Both) 1c. LOC Commands (Open \T\ Closes Eyes/Special Assemblies Supervisor) - 0(Both) 2. Best Gaze (Lateral Gaze Paresis) - 0(Normal) 3. Visual Field Loss - 0(No visual loss) 4. Facial Palsy - 0(Normal) 5a. Left Arm: Motor (10-second hold) - 0(No drift) 5b. Right Arm: Motor (10-second hold) - 0(No drift) 6a. Left Leg: Motor (5-second hold - always test supine) - 0(No drift) 6b. Right Leg: Motor (5-second hold - always test supine) - 0(No drift) 7. Limb Ataxia (finger/nose \T\ heel/tavera - test with eyes open) - 0(Absent) 8. Sensory Loss (pinprick arms/legs/face) - 0(Normal) 9. Best Language: Aphasia (description/naming/reading) - 0(No aphasia) Initials: jp5 Signatures: Dispatcher [employer] Sarah Fortune Setul, MD MD sp3 Matt Adam RN RN jj7 Corrections: (The following items were deleted from the chart) 16:35 15:41 anil luna
--- NOTE | 2024-11-13 15:42 | ER ---
Nurse's Notes [facility] Name: Ellis Girard Age: 59 yrs Sex: Male : 1965 Arrival Date: 11/13/2024 Time: 14:01 Bed 4 Private MD: Diagnosis: Chest pain Presentation: 11/13 14:03 Chief complaint: Patient states: CP STARTED YESTERDAY. DIZZINESS X1 MONTH. STATES THE jj7 CHEST PAIN HAS RESOLVED BUT STILL FEELING DIZZY. SAW ENT LAST WEDNESDAY AND SHE TOLD HIM HE COULD BE STARTING TO HAVE A STROKE HE NEEDED A MRI TO CONFIRM. HE HAS AN APPOINTMENT TO GET AN MRI TOMORROW. Coronavirus screen: At this time, the client does not indicate any symptoms associated with coronavirus-19. Ebola Screen: No symptoms or risks identified at this time. Initial Sepsis Screen: Does the patient meet any 2 criteria? HR > 90 bpm. Yes Does the patient have a suspected source of infection? No. Patient's initial sepsis screen is negative. Risk Assessment: Do you want to hurt yourself or someone else? Patient reports no desire to harm self or others. 14:03 Method Of Arrival: Ambulatory [facility] 14:03 Acuity: NATACHA 3 jj7 Triage Assessment: 14:03 General: Appears in no apparent distress. uncomfortable, Behavior is calm, cooperative, jj7 appropriate for age. Pain: Denies pain. Neuro: Reports dizziness, since 1 MONTH. Cardiovascular: Denies chest pain, palpitations, shortness of breath. Respiratory: No deficits noted. Airway is patent Respiratory effort is even, unlabored, Respiratory pattern is regular, symmetrical. GI: No deficits noted. : No deficits noted. Derm: No deficits noted. Musculoskeletal: No deficits noted. Historical: - Allergies: 14:17 Iodine; jj7 - PMHx: 14:17 Hypercholesterolemia; Hypertension; mitral valve prolapse; Sleep Apnea; jj7 - PSHx: 14:17 vertebral replacement; jj7 - Immunization history:: Adult Immunizations up to date. - Infectious Disease History:: Denies. - Social history:: Smoking status: Patient denies any tobacco usage or history of. Patient/guardian denies using alcohol, street drugs, IV drugs. Screenin:15 [facility] ED Fall Risk Assessment (Adult) History of falling in the last 3 months, jp5 including since admission No falls in past 3 months (0 pts) Confusion or Disorientation No (0 pts) Intoxicated or Sedated No (0 pts) Impaired Gait No (0 pts) Mobility Assist Device Used No (0 pt) Altered Elimination No (0 pt) Score/Fall Risk Level 0 - 2 = Low Risk Oriented to surroundings, Maintained a safe environment, Educated pt \T\ family on fall prevention, incl call for assistance when getting out of bed, Assessed \T\ reinforced patient's understanding of fall precautions, Provided non-skid footwear, Hourly rounding (assess needs \T\ fall precautionary measures) done, Used ambulatory aids as needed (educated on \T\ assisted with), Used gait belt as appropriate. Abuse screen: Denies threats or abuse. Denies injuries from another. Nutritional screening: No deficits noted. Tuberculosis screening: No symptoms or risk factors identified. Assessment: 14:00 VAN Scoring: Arm Drift: Patients demonstrates NO arm weakness. Patient is VAN Negative. jp5 Visual Disturbance: No visual disturbance noted. Aphasia: No aphasia noted. Neglect: No neglect noted. Rachel Swallow Protocol Exclusion Criteria: Brief Cognitive Screen What is your name? Normal, Where are you right now? Normal, What year is it? Normal. Oral Mechanism Examination Facial Symmetry: Normal, Motion: Normal, Lip Closure: Normal, Oral Mechanism Result: Normal. 3 oz Water Swallow Challenge: Pt able to drink all water without stopping, coughing, choking or throat clearing: Yes Result: PASS MD Notified: Cathy Vanegas MD. TNKase (Tenecteplase) Screening: Not Applicable. 15:00 Reassessment: Patient appears in no apparent distress at this time. Patient and/or jp5 family updated on plan of care and expected duration. Pain level reassessed. Patient is alert, oriented x 3, equal unlabored respirations, skin warm/dry/pink. 16:00 Reassessment: Patient appears in no apparent distress at this time. Patient and/or jp5 family updated on plan of care and expected duration. Pain level reassessed. Patient is alert, oriented x 3, equal unlabored respirations, skin warm/dry/pink. Patient denies pain at this time. 17:00 Reassessment: Patient appears in no apparent distress at this time. Patient and/or jp5 family updated on plan of care and expected duration. Pain level reassessed. Patient is alert, oriented x 3, equal unlabored respirations, skin warm/dry/pink. Patient denies pain at this time. Vital Signs: 14:03 BP 145 / 94; Pulse 99; Resp 20; Temp 97.4; Pulse Ox 98% ; Weight 158.76 kg; Height 6 jj7 ft. 4 in. ; 15:00 BP 118 / 78; Pulse 85; Resp 16; Pulse Ox 95% on R/A; jp5 16:00 BP 120 / 76 (/lg); Pulse 81; Resp 20; Pulse Ox 98% on R/A; jp5 17:00 BP 124 / 79; Pulse 81; Resp 20; Pulse Ox 97% on R/A; jp5 17:30 BP 131 / 80; Pulse 78; Resp 20; Temp 98(O); Pulse Ox 97% on R/A; jp5 19:11 BP 127 / 73; Pulse 82; Resp 20 S; Pulse Ox 98% on R/A; ha1 14:03 Body Mass Index 42.60 (158.76 kg, 193.04 cm) [facility] NIH Stroke Scale Scores: 14:00 NIHSS Score: 0 5 ED Course: 14:03 Arm band placed on right wrist. Patient placed in an exam room, in the treatment room, [facility] on a stretcher, on regional controller, on pulse oximetry. 14:04 Patient arrived in ED. al6 14:10 Cathy Vanegas MD is Attending Physician. sp3 14:10 Patient has correct armband on for positive identification. Bed in low position. Call 5 light in reach. Side rails up X 1. Placed in gown. Provided Education on: CALL LIGHT USE. trim operator on. Pulse ox on. NIBP on. 14:13 EKG done, by ED staff, reviewed by Cathy Vanegas MD. jp5 14:15 No provider procedures requiring assistance completed. jp5 14:16 Triage completed. jj7 14:16 Cheri Yoo, RN is Primary Nurse. jp5 14:30 Inserted saline lock: 20 gauge in right upper arm, using aseptic technique. ,using jp5 aseptic technique. started with US Blood collected. Flushed with 10 mL NS. 14:32 Basic Metabolic Panel Sent. jp5 14:33 CBC with Diff Sent. jp5 14:33 LFT's Sent. jp5 14:33 Magnesium Sent. jp5 14:33 NT PRO-BNP Sent. jp5 14:33 PT-INR Sent. jp5 14:33 Troponin HS Sent. jp5 15:18 XRAY Chest (1 view) In Process Unspecified. EDMS 15:41 Obinna Ellison MD is Hospitalizing Provider. sp3 17:43 Report given to SBAR, GOLD SHEET, AND CHART FAXED TO 4TH FLOOR. ELVA WHITMAN INFORMED. jp5 19:00 Report given to shift superintendent RN. jp5 19:12 Patient admitted, IV remains in place. ha1 Administered Medications: No medications were administered Medication: 14:15 VIS not applicable for this client. jp5 Outcome: 15:41 Decision to Hospitalize by Provider. sp3 19:12 Admitted to Tele accompanied by tech, via wheelchair, room 412, with chart, ha1 19:12 Condition: stable 19:12 Instructed on the need for admit, Demonstrated understanding of instructions, 19:14 Patient left the ED. ha1 NIH Stroke Scale - NIH Stroke Score Date: 11/13/2024 Time: 14:00 Total Score = 0 10. Dysarthria (speech clarity - read or repeat words) - 0(Normal) 11. Extinction and Inattention (visual/tactile/auditory/spatial/personal) - 0(No abnormality) 1a. Level of Consciousness (LOC) - 0(Alert) 1b. Level of Consciousness (LOC) (Month \T\ Age) - 0(Both) 1c. LOC Commands (Open \T\ Closes Eyes/Casting Machine Service Operator) - 0(Both) 2. Best Gaze (Lateral Gaze Paresis) - 0(Normal) 3. Visual Field Loss - 0(No visual loss) 4. Facial Palsy - 0(Normal) 5a. Left Arm: Motor (10-second hold) - 0(No drift) 5b. Right Arm: Motor (10-second hold) - 0(No drift) 6a. Left Leg: Motor (5-second hold - always test supine) - 0(No drift) 6b. Right Leg: Motor (5-second hold - always test supine) - 0(No drift) 7. Limb Ataxia (finger/nose \T\ heel/tavera - test with eyes open) - 0(Absent) 8. Sensory Loss (pinprick arms/legs/face) - 0(Normal) 9. Best Language: Aphasia (description/naming/reading) - 0(No aphasia) Initials: jp5 Signatures: Dispatcher [employer] Cathy Larry MD MD sp3 Esperanza Loving RN RN ha1 Matt Adam RN RN jj7 Cheri Yoo RN RN jp5 Stacey Alford6
--- NOTE | 2024-11-13 16:42 | P.HP ---
Date of Service: 11/13/24 Certification for Inpatient Patient admitted to: Observation With expected LOS: <2 Midnights Patient will require the following post-hospital care: None Practitioner: I am a practitioner with admitting privileges, knowledge of patient current condition, hospital course, and medical plan of care. Services: Services provided to patient in accordance with Admission requirements found in Title 42 Section 412.3 of the Code of Federal Regulations Patient History Date of Service: 11/13/24 Reason for admission: Chest pain, dizziness History of Present Illness: 59-year-old male with history of hypertension, hyperlipidemia, mitral valve prolapse, prediabetes on metformin presents to the emergency department chief complaint of dizziness and chest pain. He reports that chest pain has been going on for around 1 week now, intermittent, seems to be worse with exertion. Additionally has been feeling dizzy as well primarily with movement of his head. He saw ENT outpatient recently who felt that he would benefit with an MRI, he has not yet received this test. He is still suffering from dizziness. Patient was evaluated in the emergency department his labs are significant for initial high sensitive troponin of 4.0 other labs are unremarkable he did have a CT of his head during a recent ER visit at our hospital as well as angiograms of his head and neck. CT head without contrast at that time was negative for acute findings. CT angio of the head and neck were negative for significant stenosis/LVO. Patient be admitted under observation for ACS rule out/dizziness Allergies Iodinated Contrast Media Allergy (Verified 02/23/19 15:17) Anaphylaxis codeine Adverse Reaction (Verified 02/23/19 15:17) agitation, hyperactivity Home Medications: Allopurinol 300 mg PO DAILY 04/29/17 Gabapentin 600 mg PO BID 04/29/17 Lisinopril/Hydrochlorothiazide [Lisinopril-Hctz 10-12.5 mg Tab] 1 each PO DAILY 04/29/17 Montelukast [Singulair*] 10 mg PO DAILY 04/29/17 Zolpidem Tartrate [Ambien] 10 mg PO BEDTIME 04/29/17 Cetirizine HCl [Zyrtec] 10 mg PO DAILY 02/23/19 Sulfamethoxazole/Trimethoprim [Bactrim Ds Tablet] 1 each PO BID #12 tablet 02/27/19 Tramadol HCl/Acetaminophen [Ultracet Tablet] 1 each PO Q4H PRN #30 tablet 02/27/19 - Past Medical/Surgical History Diabetic: No -: mitral valve prolapse -: HTN -: sleep apnea -: morbid obesity -: Hernia repair; rotator cuff BL; neck - Family History Father -: Heart disease - Social History Alcohol use: No CD- Drugs: No Caffeine use: Yes Place of Residence: Home Review of Systems 10-point ROS is otherwise unremarkable Cardiovascular: Chest Pain Neurological: Other (Dizziness) Physical Examination - Vital Signs Temperature: 98.4 F Blood Pressure: 125/74 Pulse: 89 Respirations: 12 - Physical Exam General: Alert, In no apparent distress, Oriented x3 HEENT: Atraumatic, PERRLA, EOMI Neck: Supple, 2+ carotid pulse no bruit, No LAD Respiratory: Clear to auscultation bilaterally, Normal air movement Cardiovascular: Regular rate/rhythm, Normal S1 S2 Gastrointestinal: Normal bowel sounds, No tenderness Musculoskeletal: No tenderness Integumentary: No rashes Neurological: Normal speech, Normal strength at 5/5 x4 extr, Normal affect Assessment and Plan - Plan Assessment: Chest pain rule out ACS Dizziness Prediabetes Hypertension Plan: Chest pain rule out ACS Last cardiac evaluation coronary angiogram around 10 years agonormal Trend troponins and monitor on telemetry Cardiology consultation Daily aspirin Dizziness Had outpatient evaluation from ENT who recommended MRI Has not yet received MRI Still dizzy Obtain MRI brain without contrast to further evaluate Prediabetes ACHS Accu-Chek, sliding scale insulin Hypertension Continue home medications when verified DVT PPX: Lovenox Code status: Full code Discharge Plan: Home Plan to discharge in: 24 Hours - Advance Directives Does patient have a Living Will: No Does patient have a Durable POA for Healthcare: No - Code Status/Comfort Care Code Status Assessed: Yes (Full code) Critical Care: No Time Spent Managing Pts Care (In Minutes): 70 <Rey Biswas - Last Filed: 11/13/24 16:42> I have personally seen and evaluated the patient. I have reviewed the history, physical exam findings, and assessment provided by Rey Biswas MEDICAL DIRECTOR OCCUPATIONAL HEALTH. I agree with the plan of care as documented <Obinna Ellison - Last Filed: 11/27/24 07:03>
[2024-11-13] MEDS: MELATONIN 5 MG TABLET PO SCH ×2 (22:00→22:30)
[2024-11-13] MEDS: GABAPENTIN 300 MG CAP PO SCH (22:52)
[2024-11-13] MEDS: ZOLPIDEM TARTRATE 10 MG TABLET PO SCH (22:53)
[2024-11-14 05:26] LABS: Nucleated RBC Absolute Count 0.0 (0-0); Nucleated Red Blood Cells % 0.1 % (0-0)
[2024-11-14 05:32] LABS: Absolute Lymphocytes (CBC) 3.2 K/uL (0.7-4.9); Hematocrit 42.7 % (39.6-49.0); Hemoglobin 14.8 g/dL (13.6-17.9); MCH 29.9 pg (27.0-35.0); MCHC 34.6 g/dL (32.0-36.0); MCV 86.5 fL (80-100); MPV 7.7 fL (7.6-11.3); RBC Red Blood Cell Count 4.93 M/uL (4.33-5.43); White Blood Count 9.60 thou/uL (4.3-10.9)
[2024-11-14 05:50] LABS: Anion Gap 9.6 mEq/L (5.0-15.0); BUN Blood Urea Nitrogen 14.0 mg/dL (7-18); Glucose Level 95.0 mg/dL (74-106); HDL Cholesterol 31.0 mg/dL (40-60); LDL Cholesterol, Calculated 90.0 mg/dL (<130); LDL Cholesterol,Calc NonReport 90.0; Potassium 3.6 mEq/L (3.5-5.1); Thyroid Stimulating Hormone 3.17 uIU/mL (0.358-3.740); Troponin High Sensitivity 5.2 pg/mL (<58.9)
[2024-11-14] MEDS: FLU (Fluarix) 25-26 (6MOS UP)/PF 45 MCG/0.5 ML Syringe IM ONE (08:15)
[2024-11-14] MEDS: PNEUMOCOCCAL VACCINE 0.5 ML IMVAC ONE (09:00)
--- NOTE | 2024-11-14 09:41 | RAD REPORT ---
EXAMINATION: MRI BRAIN WITHOUT CONTRAST CLINICAL INDICATION: persistent dizziness TECHNIQUE: Multiplanar multisequence MR images of the brain were obtained without intravenous contras t. Unless otherwise specified, incidental findings do not require dedicated imaging follow-up. COMPARISON: 11/10/2024 FINDINGS: INTRACRANIAL: Diffusion-weighted images show no acute or early subacute infarction. No abnormal brain parenchymal signal. The ventricles are normal in size and morphology. No augmented susceptibility. There is no mass effect or midline shift. No abnormal extraaxial fluid collection. VASCULATURE: Normal signal voids in the larger intracranial arteries and dural venous sinuses. SINUSES: The paranasal sinuses and mastoid air cells are predominantly clear. BONE: The marrow signal pattern is within normal limits. IMPRESSION: Negative for acute CVA or other acute intracranial finding.
[2024-11-14] MEDS: MONTELUKAST 10 MG TAB PO SCH (09:55)
[2024-11-14] MEDS: ENOXAPARIN 40 MG/0.4 ML SQ SCH (09:55)
[2024-11-14] MEDS: ASPIRIN EC 81 MG TAB PO SCH (09:55)
--- NOTE | 2024-11-14 11:47 | P.CNS ---
Date of Consult: 11/14/24 Chief Complaint: chest pain History of Present Illness: Patient with PMH of HTN, DM, Obesity, presented with dizziness that has been getting worse over the last week, report two episodes of chest pain yesterday, pressure in nature, no radiation, no syncope. Allergies Iodinated Contrast Media Allergy (Verified 02/23/19 15:17) Anaphylaxis codeine Adverse Reaction (Verified 02/23/19 15:17) agitation, hyperactivity Home medications list reviewed: Yes Home Medications: Allopurinol 300 mg PO DAILY 04/29/17 Gabapentin 600 mg PO BID 04/29/17 Lisinopril/Hydrochlorothiazide [Lisinopril-Hctz 10-12.5 mg Tab] 1 each PO DAILY 04/29/17 Montelukast [Singulair*] 10 mg PO DAILY 04/29/17 Zolpidem Tartrate [Ambien] 12.5 mg PO BEDTIME 04/29/17 Cetirizine HCl [Zyrtec] 10 mg PO DAILY 02/23/19 Tramadol HCl/Acetaminophen [Ultracet Tablet] 1 each PO Q4H PRN #30 tablet 02/27/19 Melatonin 10 mg PO DAILY 11/13/24 Calcium Carb, Citrate/Vit D3 [Citracal-D3 ER 600 mg-12.5 Mcg] 1 each PO DAILY 11/14/24 Magnesium Oxide 500 mg PO DAILY 11/14/24 Mecobalamin [B12 Active] 2,500 mcg PO DAILY 11/14/24 Meloxicam [Mobic] 15 mg PO DAILYPRN PRN 11/14/24 Metformin ER [Glucophage ER] 500 mg PO DAILY 11/14/24 - Past Medical/Surgical History Diabetic: No -: mitral valve prolapse -: HTN -: sleep apnea -: morbid obesity -: Hernia repair; rotator cuff BL; neck - Family History Father Medical History: Heart disease - Social History Smoking Status: Never smoker Alcohol use: No CD- Drugs: No Caffeine use: No Place of Residence: Home Review of Systems 10-point ROS is otherwise unremarkable Physical Examination Temp Pulse Resp BP Pulse Ox 97.7 F 84 14 140/79 97 11/14/24 08:00 11/14/24 08:00 11/14/24 08:00 11/14/24 08:00 11/14/24 08:00 General: Alert, In no apparent distress HEENT: Atraumatic, PERRLA, Mucous membr. moist/pink, EOMI, Sclerae nonicteric Neck: Supple, 2+ carotid pulse no bruit, No LAD, Without JVD or thyroid abnormality Respiratory: Clear to auscultation bilaterally, Normal air movement Cardiovascular: Regular rate/rhythm, Normal S1 S2 Gastrointestinal: Normal bowel sounds, No tenderness Musculoskeletal: No tenderness Integumentary: No rashes Neurological: Normal gait, Normal speech, Normal tone, Normal affect Lymphatics: No axilla or inguinal lymphadenopathy Laboratory Data (last 24 hrs) 11/13/24 11/13/24 11/13/24 14:30 14:30 14:30 WBC 8.20 Hgb 15.3 Hct 43.8 Plt Count 345 PT 13.2 H INR 1.17 Sodium 139 Potassium 3.6 BUN 15 Creatinine 1.06 Glucose 111 H Magnesium 1.9 Total Bilirubin 0.3 AST 18 ALT 25 Alkaline Phosphatase 46 - Problems (1) Dizziness Current Visit: Yes Status: Acute Plan: patient had a CTA neck that shown normal carotids continue to monitor on tele outpatient event monitor (2) Chest pain Onset Date: 04/29/17 Current Visit: No Status: Acute Plan: concern for angina NPO after midnight for coronary angiogram in am continue ASA 81 mg daily add Crestor 20 mg daily get echo Qualifiers: (3) HTN (hypertension) Onset Date: 04/29/17 Current Visit: No Status: Chronic Plan: continue lisinopril 5 mg daily and monitor
--- NOTE | 2024-11-14 16:11 | P.PN ---
Subjective Date of Service: 11/14/24 Chief Complaint: chest pain Subjective: No chest pain or shortness of breath. No nausea or vomiting. No abdominal pain. No obvious bleeding. Looks comfortable in the bed. Chest pain and dizziness improving. Objective: General appearance: Alert and comfortable CVS: Normal S1 and S2 Lungs: Clear to auscultation bilaterally Abdomen: Soft, bowel sounds present, no tenderness Extremities: No lower extremity edema Physical Examination - Vital Signs Temperature: 98.0 F Blood Pressure: 133/77 Pulse: 90 Respirations: 18 Pulse Ox (%): 96 Assessment And Plan - Plan Chest pain rule out ACS Dizziness Prediabetes Hypertension Plan: Chest pain rule out ACS Trope negative Cardiology consultation on board, appreciate recommendations, plan for cardiac cath tomorrow Daily aspirin Dizziness Had outpatient evaluation from ENT who recommended MRI MRI brain negative today, follow-up with ENT as an outpatient Prediabetes ACHS Accu-Chek, sliding scale insulin Hypertension Continue home medications I did discuss all the above plan with the patient and family at bedside, they are understand agrees with the plan. Plan discussed with nursing staff and case management team.
[2024-11-14] MEDS: predniSONE 20 MG TAB PO SCH (17:29)
[2024-11-14] MEDS: DIPHENHYDRAMINE 25 MG TAB/CAP PO SCH (17:29)
[2024-11-14] MEDS: POTASSIUM 25 MEQ EFFERV TAB PO ONE (17:29)
[2024-11-14] MEDS ORDERED: MELATONIN 5 MG TABLET PO SCH (21:00)
[2024-11-15 05:09] LABS: Absolute Lymphocytes (CBC) 1.2 K/uL (0.7-4.9); Hematocrit 44.1 % (39.6-49.0); Hemoglobin 15.3 g/dL (13.6-17.9); MCH 29.8 pg (27.0-35.0); MCHC 34.7 g/dL (32.0-36.0); MCV 86.1 fL (80-100); MPV 7.5 fL (7.6-11.3); Nucleated RBC Absolute Count 0.0 (0-0); Nucleated Red Blood Cells % 0.0 % (0-0); RBC Red Blood Cell Count 5.12 M/uL (4.33-5.43); White Blood Count 10.60 thou/uL (4.3-10.9)
[2024-11-15 05:26] LABS: Anion Gap 10.1 mEq/L (5.0-15.0); BUN Blood Urea Nitrogen 14.0 mg/dL (7-18); Glucose Level 132.0 mg/dL (74-106); Potassium 4.1 mEq/L (3.5-5.1)
[2024-11-15] MEDS: ASPIRIN 81 MG CHEWABLE TABLET ONE (07:23)
[2024-11-15] MEDS: NA CHLORIDE 0.9% 500 ML ONE (07:24)
[2024-11-15] MEDS ORDERED: HEPA 1000U/500MLS 2,000 UNIT/1,000 ML BAG IV ONE (09:54)
[2024-11-15] MEDS ORDERED: HEPARIN 10,000 UNIT/10 ML VIAL IV ONE ×4 (09:55→11:25)
[2024-11-15] MEDS ORDERED: LIDOCAINE 1% 20 ML MDV ONE (09:55)
[2024-11-15] MEDS ORDERED: HEPARIN 5000 UNIT/ML 1 ML VIAL ONE (09:55)
[2024-11-15] MEDS ORDERED: ATROPINE SULF 1 MG/10 ML SYR IV ONE (09:55)
[2024-11-15] MEDS: FENTANYL CITR 100 MCG/2 ML ONE ×3 (10:04→14:51)
[2024-11-15] MEDS: MIDAZOLAM HCL 2 MG/2 ML INJ ONE ×2 (10:04→11:25)
[2024-11-15] MEDS ORDERED: REGADENOSON 0.4 MG/5 ML SYR IV ONE (10:47)
[2024-11-15] MEDS ORDERED: NITROGLYCERIN/D5W 50 MG/250 ML BTL IV ONE (11:41)
[2024-11-15] MEDS ORDERED: TICAGRELOR 90 MG TABLET PO ONE (11:48)
[2024-11-15] MEDS: NITROGLYCERIN/D5W 50 MG/250 ML BTL IV SCH ×2 (11:49→20:12)
--- NOTE | 2024-11-15 12:16 | P.PN ---
Subjective Date of Service: 11/15/24 Chief Complaint: chest pain Subjective: No new changes, No C/O voiced, Tolerating diet, Ambulating, Improving Review of Systems 10-point ROS is otherwise unremarkable Physical Examination - Vital Signs Temperature: 97.9 F Blood Pressure: 132/83 Pulse: 95 Respirations: 18 Pulse Ox (%): 99 - Physical Exam General: Alert, In no apparent distress HEENT: Atraumatic, PERRLA, EOMI Neck: Supple, JVD not distended Respiratory: Clear to auscultation bilaterally, Normal air movement Cardiovascular: Regular rate/rhythm, Normal S1 S2 Gastrointestinal: Normal bowel sounds, No tenderness Musculoskeletal: No tenderness Integumentary: No rashes Neurological: Normal speech, Normal tone, Normal affect Lymphatics: No axilla or inguinal lymphadenopathy - Studies Medications List Reviewed: Yes Assessment And Plan - Current Problems (Diagnosis) (1) Dizziness Current Visit: Yes Status: Acute Plan: patient had a CTA neck that shown normal carotids continue to monitor on tele outpatient event monitor (2) Chest pain Onset Date: 04/29/17 Current Visit: No Status: Acute Plan: coronary angiogram was done today and patient had PTCA of diagonal, unable to deliver stent due to tortousity, also got significant mid RCA disease, moderate LAD disease, FFR negative. continue ASA 81 mg daily continue Brilinta 90 mg po BID Continue Heparin drip, start 2 hours after TR band removal continue NTG drip, titrate up for chest pain add Crestor 20 mg daily Qualifiers: (3) HTN (hypertension) Onset Date: 04/29/17 Current Visit: No Status: Chronic Plan: continue lisinopril 5 mg daily and monitor
[2024-11-15] MEDS: MORPHINE 2 MG/ML SYR ONE (12:57)
[2024-11-15] MEDS ORDERED: MORPHINE 2 MG/ML SYR IV PRN (13:13)
[2024-11-15] MEDS: HYDROCODONE/APAP 7.5/325 MG TAB PO PRN (15:43)
--- NOTE | 2024-11-15 16:04 | P.PN ---
Subjective Date of Service: 11/15/24 Chief Complaint: chest pain Subjective: No shortness of breath. No nausea or vomiting. No abdominal pain. No obvious bleeding. Looks uncomfortable in the bed. Had a cardiac cath this morning, currently in ICU, complaining of chest pain and headache. Objective: General appearance: Alert and uncomfortable CVS: Normal S1 and S2 Lungs: Clear to auscultation bilaterally Abdomen: Soft, bowel sounds present, no tenderness Extremities: No lower extremity edema Physical Examination - Vital Signs Temperature: 97.9 F Blood Pressure: 130/75 Pulse: 87 Respirations: 18 Pulse Ox (%): 99 - Studies Medications List Reviewed: Yes Assessment And Plan - Plan Chest pain Dizziness Prediabetes Hypertension Plan: Chest pain Cardiology consultation on board, appreciate recommendations coronary angiogram was done today and patient had PTCA of diagonal, unable to deliver stent due to tortousity, also got significant mid RCA disease, moderate LAD disease, FFR negative. continue ASA 81 mg daily continue Brilinta 90 mg po BID Continue Heparin drip, start 2 hours after TR band removal continue NTG drip, titrate up for chest pain Crestor 20 mg daily Dizziness Had outpatient evaluation from ENT who recommended MRI MRI brain negative today, follow-up with ENT as an outpatient Prediabetes ACHS Accu-Chek, sliding scale insulin Hypertension Continue home medications I did discuss all the above plan with the patient and family at bedside, they are understand agrees with the plan. Plan discussed with nursing staff and case management team.
[2024-11-15] MEDS: MORPHINE 4 MG/ML SYR IV PRN (17:31)
[2024-11-15 17:44] VITALS: BMI 40.6
[2024-11-15] MEDS: HEPARIN/D5W 25,000 UNIT/500 ML BAG IV SCH (18:30)
[2024-11-15] MEDS: TICAGRELOR 90 MG TABLET PO SCH (20:15)
[2024-11-15] MEDS: ROSUVASTATIN 10 MG TAB PO SCH (20:15)
[2024-11-15] MEDS: ONDANSETRON 4 MG/2 ML VIAL IV PRN (20:37)
--- NOTE | 2024-11-15 22:09 | OP ---
Date of Procedure: 11/15/2024 Surgeon: Gabo Russell Procedures Performed: 1. Selective coronary angiogram. 2. PTCA of diagonal 1. 3. FFR of the LAD. Complications: None. Estimated Blood Loss: Less than 50 cc. Access: Right radial, closed by TR band. Sedation Time: 45 minutes with 4 of Versed and 100 of fentanyl. Description Of Procedure: After risks, benefits, and alternatives were explained to the patient, the patient agreed to proceed with procedure and signed informed consent. The patient was brought back to the bundle tier and labeler, prepped and draped in sterile fashion. Time-out was performed. Sedation was admini stered. Next, [place] 4 catheter was advanced over the J-wire to the aortic root. Selective angiogram was done using that catheter. After that, catheter was exchanged with an XB LAD 3.0 mm guide. Hepa rin was administered. ACT was done, but it is not therapeutic, so IV line was infiltrated, so hepari n was administered IC and ACT was therapeutic. FFR wire was passed across the LAD. Baseline FFR was 0.92. Peak FFR was 0.89. No drift. Next, run-through wire was passed across the LAD into the diag onal. PTCA of the proximal diagonal was done with 2.5 mm balloon. Next, we tried to deliver a stent , but was not able to deliver due to significant bend from the LAD to diagonal. GuideLiner support w as used and michelle wire support was used. Still there was not able to deliver the stent through the L AD into diagonal, so we decided to repeat angiogram that showed minimal dissections in the ostial to proximal diagonal. A long balloon inflation was done with 2.5 long balloon. We re-attempted to deli alessia different size stent into the LAD to diagonal, but unable to do that despite GuideLiner and michelle wire support. The patient started having chest pain during the procedure, so nitroglycerin drip was started. Heparin was therapeutic all the time. Despite multiple attempts to deliver the stent, we were not successful, so we decided to abort the procedure. Repeat angiogram shows TRISTIAN-3 flow in the diagonal with no signs of dissections or flow-limiting lesions. The patient was started on a nitrog lycerin drip, heparin drip, and moved to the intensive care unit. After that, catheter was removed o alessia a J-wire. Sheath was removed. TR band was applied. Hemostasis achieved. The patient was moved back to recovery in stable condition. Findings: 1. Left main, normal. 2. LAD, very tortuous artery, takes a 90-degree bend in the middle and mid segment for the diagonal c omes off, that LAD got 30% to 40% disease, so far was negative. 3. Diagonal 1, medium-size artery, 2.5 mm in size, comes with 90-degree bend of the LAD. PTCA was do ne, unable to deliver stent. 4. Left circ, proximal mild luminal irregularities, then continues as a [place] circ with mild luminal irregularities, it gives 2 OM branches that comes together. Before then, there is 60% disease in th e second OM and before it bifurcates into 2 branches, we will leave that for medical management due t o complexity. 5. RCA, large dominant, tortuous, heavily calcified. There is mid 70% disease that will be staged fo r later date. Then, RPDA and RPLV, mild luminal irregularities. Assessment And Plan: 1. Mild to moderate mid LAD disease. FFR negative. 2. Severe diagonal disease, PTCA done, unable to deliver stent despite multiple attempts. 3. Moderate OM2 disease before it bifurcates into 2 arteries. We will continue medical management fo r that. 4. Significant mid RCA disease, staged PCI will be done. 5. Aspirin 81 mg daily for life. 6. Brilinta 180 x1 was given in the bundle tier and labeler, continue Brilinta 90 mg p.o. b.i.d. for 12 months. 7. Continue heparin drip, to be started 2 hours after TR band removal. 8. Continue nitroglycerin drip. MINA/MODL Voice ID: [id number] Report ID: [id number]
[2024-11-16] MEDS: HYDROMORPHONE HCL 1 MG/ML INJ IV ONE (00:02)
[2024-11-16 07:07] LABS: Absolute Lymphocytes (CBC) 2.2 K/uL (0.7-4.9); Hematocrit 40.5 % (39.6-49.0); Hemoglobin 14.0 g/dL (13.6-17.9); MCH 29.7 pg (27.0-35.0); MCHC 34.5 g/dL (32.0-36.0); MCV 86.2 fL (80-100); MPV 7.6 fL (7.6-11.3); Nucleated RBC Absolute Count 0.0 (0-0); Nucleated Red Blood Cells % 0.0 % (0-0); RBC Red Blood Cell Count 4.70 M/uL (4.33-5.43); White Blood Count 18.70 thou/uL (4.3-10.9)
[2024-11-16 07:32] LABS: ALT/SGPT 26 U/L (16-61); AST/SGOT 69 U/L (15-37); Albumin 3.5 g/dL (3.4-5.0); Albumin/Globulin Ratio 1.1 (1.1-1.8); Alkaline Phosphatase 41 U/L (45-117); Anion Gap 11.2 mEq/L (5.0-15.0); BUN Blood Urea Nitrogen 15 mg/dL (7-18); Globulin 3.1 g/dL (2.3-3.5); Glucose Level 173 mg/dL (74-106); Potassium 3.2 mEq/L (3.5-5.1)
[2024-11-16 07:33] LABS: Bilirubin Indirect, Calculated 0.5 mg/dL (0.2-0.8)
[2024-11-16] MEDS: POTASSIUM CL SA 10 MEQ TAB PO ONE (08:13)
--- NOTE | 2024-11-16 08:48 | P.PN ---
Subjective Date of Service: 11/16/24 Chief Complaint: chest pain Subjective: No new changes, Tolerating diet, Other (Patient still having chest pain, feel bit better compared to yesterday.) Review of Systems 10-point ROS is otherwise unremarkable Physical Examination - Vital Signs Temperature: 97.3 F Blood Pressure: 100/48 Pulse: 93 Respirations: 18 Pulse Ox (%): 96 - Physical Exam General: Alert, In no apparent distress HEENT: Atraumatic, PERRLA, EOMI Neck: Supple, JVD not distended Respiratory: Clear to auscultation bilaterally, Normal air movement Cardiovascular: Regular rate/rhythm, Normal S1 S2 Gastrointestinal: Normal bowel sounds, No tenderness Musculoskeletal: No tenderness Integumentary: No rashes Neurological: Normal speech, Normal tone, Normal affect Lymphatics: No axilla or inguinal lymphadenopathy - Studies Medications List Reviewed: Yes Assessment And Plan - Current Problems (Diagnosis) (1) Dizziness Current Visit: Yes Status: Acute Plan: patient had a CTA neck that shown normal carotids continue to monitor on tele outpatient event monitor (2) Chest pain Onset Date: 04/29/17 Current Visit: No Status: Acute Plan: coronary angiogram was done today and patient had PTCA of diagonal, unable to deliver stent due to tortousity, also got significant mid RCA disease, moderate LAD disease, FFR negative. NPO for coronary angiogram today continue ASA 81 mg daily continue Brilinta 90 mg po BID Continue Heparin drip continue NTG drip, titrate up for chest pain add Crestor 20 mg daily Qualifiers: (3) HTN (hypertension) Onset Date: 04/29/17 Current Visit: No Status: Chronic Plan: continue lisinopril 5 mg daily and monitor
[2024-11-16] MEDS: NA CHLORIDE 0.9% 500 ML ONE (09:28)
[2024-11-16] MEDS: MIDAZOLAM HCL 2 MG/2 ML INJ ONE (09:44)
[2024-11-16] MEDS: FENTANYL CITR 100 MCG/2 ML ONE (09:44)
[2024-11-16] MEDS ORDERED: HEPA 1000U/500MLS 2,000 UNIT/1,000 ML BAG IV ONE (09:46)
[2024-11-16] MEDS ORDERED: LIDOCAINE 1% 20 ML MDV ONE (09:46)
[2024-11-16] MEDS ORDERED: HEPARIN 10,000 UNIT/10 ML VIAL IV ONE (09:46)
[2024-11-16] MEDS ORDERED: Phenylephrine HCl 10 MG/ML 1 ML VIAL ONE (09:47)
[2024-11-16] MEDS ORDERED: DIPHENHYDRAMINE 50 MG/ML VIAL ONE (10:33)
--- NOTE | 2024-11-16 14:51 | P.PN ---
Subjective Date of Service: 11/16/24 Chief Complaint: chest pain Subjective: No shortness of breath. No nausea or vomiting. No abdominal pain. No obvious bleeding. Looks comfortable in the bed. Had a cardiac cath this morning, result pending. Headache and chest pain better today. Objective: General appearance: Alert and comfortable CVS: Normal S1 and S2 Lungs: Clear to auscultation bilaterally Abdomen: Soft, bowel sounds present, no tenderness Extremities: No lower extremity edema Physical Examination - Vital Signs Temperature: 97.2 F Blood Pressure: 112/72 Pulse: 88 Respirations: 16 Pulse Ox (%): 97 - Studies Medications List Reviewed: Yes Assessment And Plan - Plan Chest pain Dizziness Prediabetes Hypertension Plan: Chest pain Cardiology consultation on board, appreciate recommendations coronary angiogram was done on 11/15 and patient had PTCA of diagonal, unable to deliver stent due to tortousity, also got significant mid RCA disease, moderate LAD disease, FFR negative. Had repeat cath today, follow-up on results. continue ASA 81 mg daily continue Brilinta 90 mg po BID Heparin / NTG drips as per cardiology Crestor 20 mg daily Dizziness Had outpatient evaluation from ENT who recommended MRI MRI brain negative this admission, follow-up with ENT as an outpatient Prediabetes ACHS Accu-Chek, sliding scale insulin Hypertension Continue home medications Leukocytosis: Probably reactive, monitor. Hypokalemia: Replace and monitor I did discuss all the above plan with the patient and family at bedside, they all understand and agrees with the plan. Plan discussed with nursing staff and case management team. Discharge plan depending on clinical progress.
--- NOTE | 2024-11-16 19:25 | OP ---
Date of Procedure: 11/16/2024 Surgeon: Gabo Russell Procedures Performed: 1. Selective coronary angiogram with left heart catheterization. 2. PCI of the RCA with Synergy 4.0 x 28 mm drug-eluting stent. Indication For Procedure: The patient was presented with unstable angina yesterday. The patient had coronary angiogram with PTCA of the diagonal, unable to deliver stent. The patient continued to hav e chest pain through the night, so the patient was brought back to the senior cytogenetics laboratory director for relook at his cor onaries. Complications: None. Estimated Blood Loss: Less than 50 cc. Access: Right common femoral artery 7-Burkinan sheath, closed by an Angio-Seal. Sedation Time: 30 minutes with 1 of Versed and 25 of fentanyl. Description Of Procedure: After risks, benefits, and alternatives were explained to the patient, the patient agreed to proceed with procedure and signed informed consent. The patient was brought back to the senior cytogenetics laboratory director, prepped and draped in sterile fashion. Time-out was performed. Sedation was admini stered. Next, right common femoral artery access was obtained using ultrasound-guided micropuncture technique. 7-Burkinan sheath was inserted. A JL4 catheter was used for coronary angiogram of the left coronary system that was exchanged with a JR4 guide to the LV cavity. LVEDP was obtained. Pullback did not show any gradient. Same catheter was used for selective angiogram of the right coronary sys tems. Heparin was administered. ACT was therapeutic. Runthrough wire was passed across the lesion, pre-dilated the mid RCA lesion with an NC 3.0 mm balloon followed by an NC 3.5 mm balloon followed b y 3.5 mm wolverine cutting balloon. Next, Synergy 4.0 x 28 mm drug-eluting stent was placed across t he lesion that is postdilated with an NC 4.5 mm balloon. Final angiogram shows TRISTIAN-3 flow. GuideLi ner support was used during the procedure. At the end of procedure, catheter was removed over a J-wi re. Sheath was removed. Angio-Seal was applied. Hemostasis achieved and the patient was moved back to recovery in stable condition. Findings: 1. Left main, normal. 2. LAD, very tortuous artery with mid 90-degree bend that got like 30% to 40% disease. There was FFR DS today and it was negative. 3. Diagonal 1, comes on a 90-degree angle from the LAD. Site of PTCA looks patent with TRISTIAN-3 flow. Distal diagonal is occluded to the small artery. 4. Left circ; proximal to mid mild luminal irregularities. It gives 2 OM branches, it got like 60% d isease at the origin of those 2 OM branches just before the bifurcation, leave that for medical manag ement. 5. RCA, large, dominant with mid calcified 70% to 80% disease, status post PCI as above. Then, mid t o distal mild luminal irregularities with RPDA and RPLV with mild luminal irregularities. Assessment: 1. Significant mid RCA disease, status post PCI with Synergy 4.0 x 28 mm drug-eluting stent. 2. Patent diagonal artery with history of PTCA done yesterday, distal occluded very small artery. 3. Moderate left circ disease. We will continue medical management for that as it is a bifurcation l esion with complex PCI option. 4. Ssmg-ae-rhpvxjoi LAD disease. FFR was done. It was negative. Plan: 1. Aspirin 81 mg daily for life. 2. Brilinta 90 mg p.o. b.i.d. for 12 months, preferably 36 months if possible. 3. Continue aggressive medical treatment for CAD. [place] Voice ID: [id number] Report ID: [id number]
[2024-11-16] MEDS: ROSUVASTATIN 10 MG TAB PO SCH (19:49)
[2024-11-17 05:35] LABS: Absolute Lymphocytes (CBC) 1.7 K/uL (0.7-4.9); Hematocrit 40.6 % (39.6-49.0); Hemoglobin 13.9 g/dL (13.6-17.9); MCH 29.7 pg (27.0-35.0); MCHC 34.2 g/dL (32.0-36.0); MCV 86.6 fL (80-100); MPV 7.4 fL (7.6-11.3); Nucleated RBC Absolute Count 0.0 (0-0); Nucleated Red Blood Cells % 0.0 % (0-0); RBC Red Blood Cell Count 4.69 M/uL (4.33-5.43); White Blood Count 11.90 thou/uL (4.3-10.9)
[2024-11-17 05:47] LABS: Anion Gap 9.5 mEq/L (5.0-15.0); BUN Blood Urea Nitrogen 9.0 mg/dL (7-18); Glucose Level 119.0 mg/dL (74-106); Potassium 3.5 mEq/L (3.5-5.1)
[2024-11-17] MEDS ORDERED: HOME MED 1 EA UNK (Cetirizine Hcl [Zyrtec] 10 MG Tablet) PO SCH (09:00)
[2024-11-17] MEDS ORDERED: MAGNESIUM OXIDE 500 MG PO SCH (09:00)
[2024-11-17] MEDS: CALCIUM CARB CITRATE PO SCH (09:00)
[2024-11-17] MEDS: MAGNESIUM OXIDE 400 MG TAB PO SCH (09:00)
[2024-11-17] MEDS: Mecobalamin [B12 Active] 1,000 MCG Tab.Chew *PT OWN MED PO SCH (09:00)
[2024-11-17] MEDS ORDERED: HOME MED 1 EA UNK (Gabapentin [Gabapentin] 600 MG Tablet) PO SCH (09:00)
[2024-11-17] MEDS ORDERED: HOME MED 1 EA UNK (Melatonin [Melatonin] 10 MG Capsule) PO SCH (09:00)
[2024-11-17] MEDS: VIT D3 PO SCH (09:00)
[2024-11-17] MEDS: CETIRIZINE HCL 5 MG TABLET PO SCH (09:33)
[2024-11-17] MEDS: GABAPENTIN 300 MG CAP PO SCH (09:33)
[2024-11-17] MEDS: MONTELUKAST 10 MG TAB PO SCH (09:34)
--- NOTE | 2024-11-17 10:44 | P.PN ---
Subjective Date of Service: 11/17/24 Chief Complaint: chest pain Subjective: Improving (No acute events overnight. Patient's chest pain has improved after PCI yesterday. He is still in the ICU.) Physical Examination - Vital Signs Temperature: 97.2 F Blood Pressure: 147/85 Pulse: 103 Respirations: 18 Pulse Ox (%): 97 - Physical Exam General: In no apparent distress, Cooperative, Obese (Morbidly obese) HEENT: Atraumatic, Normocephalic Respiratory: Clear to auscultation bilaterally, Normal air movement Cardiovascular: No edema, Normal pulses, Regular rate/rhythm, Normal S1 S2 Neurological: Normal speech - Studies Medications List Reviewed: Yes Assessment And Plan - Plan Assessment This is a 59-year-old male who was admitted to the hospital after he presented with chest pain and dizziness. Patient's WBC was elevated at 18,000 on presentation. His first troponin was negative. He eventually underwent PTCA of diagonal branch but his symptoms persisted postoperatively. A stent could not be deployed at the time due to tortuous anatomy. Patient required another intervention on 11/16 with stent placement to his right coronary artery. Today's postop day #1. He is still in the ICU. ACS Hypertension Morbid obesity Leukocytosis Plan: Patient is off heparin infusion Patient is currently on dual antiplatelet therapy and statin. He is on aspirin and ticagrelor WBC has normalized Currently on BRITTON inhibitor and HCTZ Follow 2D echo Discharge pending cardiology clearance
[2024-11-17] MEDS: TRAMADOL 37.5mg/APAP 325mg PER TAB PO PRN (12:58)
--- NOTE | 2024-11-17 18:54 | PN ---
Date of Progress Note: 11/17/2024 Subjective: Seen by bedside. No further chest pain since yesterday. Review of Systems: No further chest pain. No nausea, vomiting, or diarrhea. No abdominal pain. No dysuria, polyuria, or urinary urgency. He ambulated without any significant pain. He is asymptomatic, this morning. A ll systems were reviewed, they were negative. Physical Examination: Vital Signs: Reviewed. Head and Neck: Pupils are equal, reactive to light. Intact eye movements. No JVD. No cervical lym phadenopathy. Neck is supple. Thyroid is not enlarged. Lungs: Clear to auscultation bilaterally. No rhonchi, wheezing, or crackles. No accessory muscle u se. Heart: Regular rate and rhythm. No extra sounds. Abdomen: Soft, nontender. Bowel sounds positive. No organomegaly. No masses or hernia. No rigidi ty or rebound. Extremities: No clubbing or cyanosis. Intact pulses. Skin: No rash. No nodules. Neuro: Alert, awake, and oriented x3. No acute focal deficits appreciated. Investigations: Labs were reviewed. Assessment And Recommendations: 1. Unstable angina, status post PCI of diagonal, is doing well. Stent could not be delivered but ang ioplasty was done. Continue aspirin, Brilinta, and high-dose statin, and transferred to the floor. Observe over the next 24 hours. If he continues to be stable, then he can be released to follow up e remy next week with me. 2. Hypertension. Blood pressure is controlled. Continue current therapy. 3. Dyslipidemia. Continue Crestor 40 mg q.h.s. SR/MODL Voice ID: [id number] Report ID: [id number]
[2024-11-17] MEDS: MELATONIN 5 MG TABLET PO SCH (20:01)
[2024-11-17] MEDS: ZOLPIDEM TARTRATE 10 MG TABLET PO SCH (20:01)
[2024-11-17 22:15] VITALS: O2SAT 97
[2024-11-18 08:22] VITALS: BP 130/72
[2024-11-18 08:52] VITALS: TEMP 98.9
--- NOTE | 2024-11-18 09:34 | P.DS ---
Admission Date: 11/14/24 Discharge Date: 11/18/24 Primary Care Provider: Kenzie Brewster DNP Disposition: ROUTINE DISCHARGE Discharge Condition: GOOD Reason for Admission: chest pain Consultations: Cardiology Procedures: PCI 11/16/24 Brief History of Present Illness: HPI: 59-year-old male with history of hypertension, hyperlipidemia, mitral valve prolapse, prediabetes on metformin presents to the emergency department chief complaint of dizziness and chest pain x 1 week that he describes as intermittent and worse with exertion. This was associated with a dizziness upon movement of the head. Hospital Course: ACS Hypertension Morbid obesity Patient was started on heparin drip and dual antiplatelet therapy plus statin due to concern for ACS pending intervention with cardiology. Specifically, he was on aspirin 81 mg, Brilinta 90 mg twice daily, Crestor 40 mg. He underwent an echocardiogram showing Cardioloestimated LVEF of 55 to 60% without regional wall motion abnormalities and normal diastolic function. No significant valve disease noted on exam. Right ventricle normal size. His first troponin was negative. He eventually underwent PTCA of diagonal branch but his symptoms persisted postoperatively. A stent could not be deployed at the time due to tortuous anatomy. Patient required another intervention on 11/16 with stent placement to his right coronary artery. Blood pressures were monitored and noted to be well-controlled throughout hospitalization. Patient was noted to be chest pain-free for 48 hours post procedure and discharged home. Leukocytosis Patient's WBC was elevated at 18,000 on presentation. This was likely a stress reaction as patient had no signs and symptoms of infection otherwise and normalized without antibiotics. Vital Signs/Physical Exam: Temp Pulse Resp BP Pulse Ox 98.9 F 94 H 18 130/72 96 11/18/24 08:00 11/18/24 08:20 11/18/24 08:00 11/18/24 08:20 11/18/24 08:00 General: Alert, In no apparent distress, Oriented x3, Obese HEENT: Atraumatic, Normocephalic, Mucous membr. moist/pink Neck: Supple, JVD not distended, No Thyromegaly, No LAD Respiratory: Clear to auscultation bilaterally, Normal air movement Cardiovascular: No edema, Normal pulses, Regular rate/rhythm, Normal S1 S2 Capillary refill: Brisk Gastrointestinal: Normal bowel sounds, Soft and benign, Non-distended Musculoskeletal: No clubbing, No swelling, No contractures, No erythema Integumentary: No rashes, No breakdown, No significant lesion Neurological: Normal speech, Normal tone, Sensation intact, Normal affect External genitalia: Deferred Rectal: Deferred Laboratory Data at Discharge: WBC 11.90 thou/uL (4.3-10.9) H 11/17/24 05:20 Hgb 13.9 g/dL (13.6-17.9) 11/17/24 05:20 Hct 40.6 % (39.6-49.0) 11/17/24 05:20 Plt Count 289 thou/uL (152-406) 11/17/24 05:20 PT 13.2 SECONDS (10-13.0) H 11/13/24 14:30 INR 1.17 11/13/24 14:30 APTT 73.1 SECONDS (27.2-37.4) H 11/16/24 08:06 Sodium 138 mEq/L (136-145) 11/17/24 05:20 Potassium 3.5 mEq/L (3.5-5.1) 11/17/24 05:20 BUN 9 mg/dL (7-18) 11/17/24 05:20 Creatinine 0.93 mg/dL (0.70-1.30) 11/17/24 05:20 Glucose 119 mg/dL (74-106) H 11/17/24 05:20 Magnesium 1.9 mg/dL (1.6-2.4) 11/13/24 14:30 Total Bilirubin 0.7 mg/dL (0.2-1.0) 11/16/24 06:57 AST 69 U/L (15-37) H 11/16/24 06:57 ALT 26 U/L (16-61) 11/16/24 06:57 Alkaline Phosphatase 41 U/L (45-117) L 11/16/24 06:57 Triglycerides 258 mg/dL (<150) H 11/14/24 04:49 Cholesterol 173 mg/dL (<200) 11/14/24 04:49 HDL Cholesterol 31 mg/dL (40-60) L 11/14/24 04:49 Cholesterol/HDL Ratio 5.58 11/14/24 04:49 Home Medications: Allopurinol 300 mg PO DAILY 04/29/17 Gabapentin 600 mg PO BID 04/29/17 Lisinopril/Hydrochlorothiazide [Lisinopril-Hctz 10-12.5 mg Tab] 1 each PO DAILY 04/29/17 Montelukast [Singulair*] 10 mg PO DAILY 04/29/17 Zolpidem Tartrate [Ambien] 12.5 mg PO BEDTIME 04/29/17 Cetirizine HCl [Zyrtec] 10 mg PO DAILY 02/23/19 Tramadol HCl/Acetaminophen [Ultracet Tablet] 1 each PO Q4H PRN #30 tablet 02/27/19 Calcium Carb, Citrate/Vit D3 [Citracal-D3 ER 600 mg-12.5 Mcg] 1 each PO DAILY 11/14/24 Magnesium Oxide 500 mg PO DAILY 11/14/24 Mecobalamin [B12 Active] 2,500 mcg PO DAILY 11/14/24 Meloxicam [Mobic] 15 mg PO DAILYPRN PRN 11/14/24 Metformin ER [Glucophage ER*] 500 mg PO DAILY 11/14/24 Aspirin [Aspirin EC 81 MG] 81 mg PO DAILY #30 tab 11/18/24 Rosuvastatin [Crestor*] 20 mg PO BEDTIME #30 tab 11/18/24 Ticagrelor [Brilinta*] 90 mg PO BID #60 tab 11/18/24 New Medications: Aspirin [Aspirin EC 81 MG] 81 mg PO DAILY #30 tab Ticagrelor [Brilinta*] 90 mg PO BID #60 tab Rosuvastatin [Crestor*] 20 mg PO BEDTIME #30 tab Physician Discharge Instructions: Follow up with your PCP in the next 2 to 3 days. Follow-up with your portable sawmill operator in the next 1 to 2 weeks. History take all your medications as prescribed. If you have further incidence of chest pain, shortness of breath, weakness, or other symptoms of concern, contact your PCP or portable sawmill operator for next apps. If they are unavailable proceed to the emergency department for evaluation. Diet: AHA Activity: Ad alberto Followup: Gabo Russell MD [ACTIVE - CAN ADMIT] - 1-2 Weeks Kenzie Brewster [Primary Care Provider] - 2-3 Days Time spent managing pt's care (in minutes): 35
== END 2024-11-18 12:08 | disposition home or self-care (01) | DRG 322 ==
LOC: ER 14:01 → ERHOLD 16:18 → 4TH 19:05 → OBSVTOIN 11-14 22:18 → 3RD-ICU 11-15 14:36 → 4TH 11-17 15:15
PROVIDERS: ADMIT Family Medicine; ATTEND Hospitalist
PROC: B2111ZZ Fluoroscopy of Multiple Coronary Arteries using Low Osmolar Contrast (ICD-10-PCS; 2024-11-15)
PROC: 027034Z Dilation of Coronary Artery, One Artery with Drug-eluting Intraluminal Device, Percutaneous Approach (ICD-10-PCS; principal; 2024-11-16)
PROC: 4A023N7 Measurement of Cardiac Sampling and Pressure, Left Heart, Percutaneous Approach (ICD-10-PCS; 2024-11-16)
PROC: B2111ZZ Fluoroscopy of Multiple Coronary Arteries using Low Osmolar Contrast (ICD-10-PCS; 2024-11-16)
DX: I25.110 Atherosclerotic heart disease of native coronary artery with unstable angina pectoris (principal); Z68.41 Body mass index [BMI] 40.0-44.9, adult; E66.01 Morbid (severe) obesity due to excess calories; I10 Essential (primary) hypertension; E87.6 Hypokalemia; G47.33 Obstructive sleep apnea (adult) (pediatric); E78.00 Pure hypercholesterolemia, unspecified; E11.9 Type 2 diabetes mellitus without complications; Z88.5 Allergy status to narcotic agent; Z91.041 Radiographic dye allergy status; Z79.899 Other long term (current) drug therapy; Z79.84 Long term (current) use of oral hypoglycemic drugs
CPT/HCPCS: 36415; 70551; 71045; 76937; 80048; 80061; 80076; 82947; 83735; 83880; 84439; 84443; 84484; 85025; 85347; 85610; 85730; 92920; 92928; 93005; 93306; 93454; 93458; 93571; 99152; 99153; 99285; C1725; C1760; C1769; C1877; C1893; G0378; J0461; J1171; J1200; J1644; J1650; J2003; J2250; J2270; J2371; J2405; J2785; J3010; J7040; J7512; Q9967

== ENCOUNTER 2024-11-19 11:25 | Inpatient (IN) | payer BC ==
--- OUTSIDE RECORDS SUMMARY | 2024-11-19 11:29 | XMS REPORT | Continuity of Care Document ---
Author Name Unknown Address [address] [place] [address] [facility] Address [address] [place] [address] Care Team Providers Care Fire Claims Adjuster Name Role Phone Wayne Quintero Attending Clinician Unavailable Silvia Attending Clinician UnavailWAYNE Lang Attending Clinician Unava ilable FOG_A_Provider Attending Clinician Unavailable Wayne Quintero Admitting Clinician Unavailable Amalia Jamison Cardiology Admitting Clinician Unavailable Silvia Admitting Clinician Unavaila isabel FOG_A_Provider Admitting Clinician Unavailable Payers Payer Name Policy Type Policy Number Effective Date Expirati on Date Source [facility] [id number] Problems Condition Name Condition Details Condition Category Status Onset Date Resolution Date Last Treatment Date Treating Clinician Comments Source Postoperat rolo pain Postoperat rolo Pain Problem Active 07-25 00:00: 00 [facility] Pseudarthr 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 s Pseudarthr osis after Fusion or Arthrodesi s Problem Active 9- 00:00: 00 [facility] Peroneal tendinitis Peroneal Tendinitis Problem Active - 00:00: 00 [facility] Active SV ANAPHYLAXIS 2024-0 9-02 00:00: 00 [facility] Iodinate d Contrast Media DA Active SV ANAPHYLAXIS 2024-0 5-08 00:00: 00 [facility] Iodinate d Contrast Media DA Active SV ANAPHYLAXIS 1 2-02 00:00: 00 [facility] Iodinate d Contrast Media DA Active SV ANAPHYLAXIS 2023-0 5-14 00:00: 00 [facility] Iodinate d Contrast Media DA Active SV ANAPHYLAXIS 2022-0 1-16 00:00: 00 [facility] Iodinate d Contrast Media DA Active SV ANAPHYLAXIS 2022-0 1-10 00:00: 00 [facility] Social History Smoking Status Start Date Stop Date Source Never Smoker [facility] Medications Ordered Medication [...] End Date/Time Encounter Type Admission Type Attending [facility] Facility Care Department Encounter ID Source 2022-08-28 15:00:00 Inpatient DARRELL Wayne QuinteroTO RADI [id number] [facility] 2022-07-10 15:33:08 Outpatient [facility] [id number] [facility] 2024-10-10 11:21:00 2024-10-10 11:21:00 Outpatient Wayne VinesTO RADI [id number] [facility] 2024-06-19 08:07:00 2024-06-19 08:07:00 Outpatient Wayne Vines [facility] [id number] [facility] 2024-06-02 12:12:00 2024-06-02 12:12:00 Outpatient Wayne VinesTO RADI [id number] [facility] 2024-03-29 09:15:00 2024-03-29 09:15:00 Outpatient Wayne VinesTO RADI [id number] [facility] 2024-01-11 13:54:00 2024-01-11 13:54:00 Outpatient Wayne Vines [facility] RADI [id number] [facility] 2023-12-28 11:57:00 2023-12-28 11:57:00 Outpatient Wayne Vines [facility] RADI [id number] [facility] 2023-12-28 00:00:00 2023-12-28 00:00:00 Wayne Quintero MD: [address] [place] [address] , Ph. [phone] [place] [facility] [place] [phone] [id number] [facility] 2023-10-26 00:00:00 2023-10-26 00:00:00 Wayne Quintero MD: [address] [place] [address] , Ph. [phone] [place] [facility] [place] [id number] [facility] 2023-09-07 00:00:00 2023-09-07 00:00:00 Wayne Quintero MD: [address] [place] [address] , Ph. [phone] [place] [facility] [place] [id number] [facility] 2023-08-10 00:00:00 2023-08-10 00:00:00 Wayne Quintero MD: [address] [place] [address] , Ph. [phone] [place] [facility] [address] [place] [address] [id number] [facility] 2023-07-19 11:51:00 2023-07-20 11:28:00 Inpatient Wayne Vines [facility] [id number] [facility] 2023-07-19 00:00:00 2023-07-19 00:00:00 Wayne Quintero MD: [address] [place] [address] , Ph. [phone] [facility] [place] [facility] [id number] [id number] [facility] 2023-05-03 00:00:00 2023-05-03 00:00:00 Outpatient FOG_Kev_ Wayne_ [facility] [id number] [facility] 2023-03-17 11:01:00 2023-03-17 23:59:00 [facility] [id number] 2023-03-10 00:00:00 2023-03-10 00:00:00 Wayne Quintero MD: [address] [place] [address] , Ph. [phone] [facility] [place] [facility] [address] [id number] [facility] 2022-09-08 08:19:00 2022-09-08 23:59:00 Outpatient WAYNE QUINTERO [id number] 2022-05-27 00:00:00 2022-05-27 00:00:00 Wayne Quintero MD: [address] [place] [address] , Ph. [phone] [facility] [place] - [facility]Of[facility] [address] [id number] [facility] 2022-04-10 00:00:00 2022-04-10 00:00:00 Wayne Quintero MD: [address] [place] [address] , Ph. [phone] [place] [facility]Of[facility] [address] [id number] [facility] 2022-03-11 00:00:00 2022-03-11 00:00:00 Wayne Quintero MD: [address] [place] [phone] , Ph. [phone] [place] [facility]Of[facility] [address] [id number] [facility] 2022-02-23 12:03:00 2022-02-25 12:20:00 Inpatient Wayne Vines [facility] [id number] [facility] 2022-02-23 00:00:00 2022-02-23 00:00:00 Wayne Quintero MD: [address] [place] [address] , Ph. [phone] [facility] [place] [facility] [id number] [facility] 2022-01-21 00:00:00 2022-01-21 00:00:00 Wayne Quintero MD: [address] [place] [address] , Ph. [phone] [facility] [place] - [facility] [address] [place] [id number] [facility] Results Test Description Test Time Test Comments Results Result Co mments Source [id number] 09:28:00* Test Item Value Reference Range Interpretation Comme nts GLUBED (test code = GLUBED) 105 mg/dL 60-99 H The normal [facility] blood glucose range for a non-diabeticadult is 60-99 mg/dL. Two hours after meals, normal blood glucose levels should beless than 140 mg/dL.Please note new normal range. [id number] 09:17:00* Test Item Value Reference Range Interpretation Comme nts glubed (test code = glubed) 105 mg/dL 60-99 H performing lab: (test code = performing lab:) [facility] [id number] 13:46:00* Test Item Value Reference Range Interpretation [...] CA) 9.1 mg/dL 8.5-10.1 N COMPREHENSIVE METABOLIC [id number] 10:23:00* Test Item Value Reference Range Interpretation [...] ALKP) 56 U/L 46-116 N CBC W/AUTO [id number] 09:58:00* Test Item Value Reference Range Interpretation [...] Notes Date/Time Note Provider Source 2024-06-19 12:10:00 [id number] [facility] [address] [place] [address] PATIENT NAME: LAILA MCLEAN ADMIT DATE: 06/19/24 ACCOUNT NO: [id number] ROOM NO: AGE: 58 REPORT TYPE: OPERATIVE REPORT SEX: M ADMITTING PHYSICIAN: ATTENDING PHYSICIAN:Wayne Quintero MD OPERATION DATE: 06/19/2024 PREOPERATIVE DIAGNOSES: 1. Right ankle arthritis. 2. Right ankle pain with synovitis/arthrofibrosis. POSTOPERATIVE DIAGNOSES: 1. Right ankle arthritis. 2. Right ankle pain with synovitis/arthrofibrosis. PROCEDURE: Right ankle arthroscopic debridement, extensive. SURGEON: Wayne Quintero M.D. SKIDWAY WORKER: Efrain Espinal DO ANESTHESIA: General and local. [...] Date Transcribed: 06/19/2024 12:29:55 MICHAEL/JOEY Receipt ID: [id number] Authenticated by Wayne Quintero MD On 06/20/2024 07:00:07 AM at 0700 PATIENT NAME: LAILA MCLEAN [facility] 2024-06-19 11:09:[address] [facility] [place] ([facility]) Brief Op Note REPORT#:[id number] REPORT STATUS: Signed REPORT INITIALIZATION DATE:06/19/24 TIME: 1108 PATIENT: LAILA MCLEAN UNIT #: [id number] ROOM/BED: : 65 AGE: 58 SEX: M ATTEND: Wayne Quintero MD ADM AUTHOR: Wayne Quintero MD REPT SERVICE DT/TIME: 06/19/24 1109 * ALL edits or amendments must be made on the electronic/computer document * Op/Inv Proc Note - Brief Pre-procedure diagnosis: right ankle DJD right ankle impingement Post-procedure diagnosis: same as pre procedure dx Procedures performed: right ankle scope Primary Surgeon: Kev Porter Head(s): Kylie Findings: right ankle DJD right ankle impingement Complications: none Estimated blood loss in ml's: 10 Specimens removed/altered: none at 1155 RPT #:[id number] END OF [facility]23-[facility] 06:52:[address] [facility] [place] ([facility]) Clinical Note REPORT#:[id number] REPORT STATUS: Signed REPORT INITIALIZATION DATE:07/20/23 TIME: 651 PATIENT: LAILA MCLEAN UNIT #: [id number] ROOM/BED: Y304-B : 65 AGE: 57 SEX: M ATTEND: Wayne Quintero MD ADM AUTHOR: Wayne Quintero MD REPT SERVICE DT/TIME: 07/20/23 0652 * ALL edits or amendments must be made on the electronic/computer document * Clinical Note Note: pain under control afebrile VSS RLE--splint intact, +DF/PF toes, LT intact, good cap refill in toes plan--d/c home at 0652 RPT #:[id number] END OF REPORT [facility] 2023-07-19 12:05:00 [id number] [place] [address] PATIENT NAME: LAILA MCLEAN ADMIT DATE: 07/19/23 ACCOUNT NO: [id number] ROOM NO: Y.304 AGE: 57 REPORT TYPE: OPERATIVE REPORT SEX: M ADMITTING PHYSICIAN:Wayne Quintero MD ATTENDING PHYSICIAN:Wayne Quintero MD OPERATION DATE: 07/19/2023 PREOPERATIVE DIAGNOSIS: Right subtalar fusion nonunion. POSTOPERATIVE DIAGNOSIS: Right subtalar fusion nonunion. PROCEDURES: Right subtalar revision fusion with allograft and iliac crest bone marrow aspirate. SURGEON: Wayne Quintero M.D. SKIDWAY WORKER: Schuyler Marcial DO. ANESTHESIA: General plus local. [...] the subtalar joint was stabilized with three [place] partially threaded headless cannulated screws with two [...] Dictated: 07/19/2023 12:05:23 Date Transcribed: 07/19/2023 12:22:49 /[facility] Receipt ID: [id number] Authenticated by Wayne Quintero MD On 07/20/2023 06:55:53 AM at 0655 PATIENT NAME: LAILA MCLEAN [facility] 2023-07-19 10:02:[address] [facility] [place] [facility]) Brief Op Note REPORT#:[id number] REPORT STATUS: Signed REPORT INITIALIZATION DATE:07/19/23 TIME: 1002 PATIENT: LAILA MCLEAN UNIT #: [id number] ROOM/BED: : 65 AGE: 57 SEX: M ATTEND: Wayne Quintero MD ADM AUTHOR: Wayne Quintero MD REPT SERVICE DT/TIME: 07/19/23 1002 * ALL edits or amendments must be made on the electronic/computer document * Op/Inv Proc Note - Brief Pre-procedure diagnosis: right subtalar fusion nonunion Post-procedure diagnosis: same as pre procedure dx Procedures performed: right revision subtalar fusion with ICBG/allgraft Primary Surgeon: Kev Porter Head(s): Aniket Findings: right subtalar fusion nonunion Complications: none Estimated blood loss in ml's: 25 Specimens removed/altered: none at 1150 RPT #:[id number] END OF REPORT [facility] 2023-06-22 12:25:00 [id number] [place] [address] PATIENT NAME: LAILA MCLEAN ADMIT DATE: ACCOUNT NO: [id number] ROOM NO: AGE: 57 REPORT TYPE: ELECTROCARDIOGRAM SEX: M ADMITTING PHYSICIAN: ATTENDING PHYSICIAN:Wayne Quintero MD Order: [id number] Test Reason : PREOP CLEARANCE H/O HTN [...] When compared with ECG of 17-FEB-2022 10:05, [place] interval has increased Confirmed by DELILAH HUERTA MD ([id number]) on 07/14/2023 8:43:05 AM Referred By: Wayne Quintero Confirmed by:DELILAH HUERTA MD PATIENT NAME: LAILA MCLEAN [facility] 2022-02-24 07:02:[address] [facility] [place] ([facility]) Clinical Note REPORT#:[id number] REPORT STATUS: Signed DATE:02/24/22 TIME: 701 PATIENT: STEFAN MCLEAN UNIT #: [id number] ROOM/BED: [address] : [birth year] AGE: 56 SEX: M ATTEND: Wayne Quintero MD ADM AUTHOR: Wayne Quintero MD * ALL edits or amendments must be made on the electronic/computer document * Clinical Note Note: pain under control afebrile VSS RLE--splint intact, +DF/PF toes, LT intact, good cap refill in toes plan--d/c home at 0703 RPT #:[id number] END OF REPORT [facility] 2022-02-23 17:10:00 [id number] [facility] [address] [place] [address] PATIENT NAME: STEFAN MCLEAN ADMIT DATE: 02/23/22 ACCOUNT NO: [id number] ROOM NO: Y.306 AGE: 56 REPORT TYPE: [...] spring ligament repair/reconstruction. SURGEON: Wayne Quintero MD SKIDWAY WORKER: Shubham Quintero MD ANESTHESIA: General plus local. [...] repaired with #2 FiberWire suture in a [id number] fashion. We then placed an Arthrex internal [...] Dictated: 02/23/2022 17:10:04 Date Transcribed: 02/23/2022 20:50:46 MICHAEL/MAA/MAMIE Receipt ID: [id number] Authenticated by Wayne Quintero MD On 02/24/2022 06:55:32 AM PATIENT NAME: STEFAN MCLEAN at 0655 PATIENT NAME: STEFAN MCLEAN [facility] 2022-02-23 13:41:00 [facility] Brief Op Note REPORT#:[id number] REPORT STATUS: Signed DATE:02/23/22 TIME: 1341 PATIENT: STEFAN MCLEAN UNIT #: [id number] ROOM/BED: : 65 AGE: 56 SEX: M ATTEND: Wayne Quintero MD ADM AUTHOR: Wayne Quintero MD * ALL edits or amendments must be made on the electronic/computer document * Op/Inv Proc Note - Brief Pre-procedure diagnosis: right PTTD right hindfoot DJD Post-procedure diagnosis: same as pre procedure dx Procedures performed: right ST fusion right hindfoot reconstruction Primary Surgeon: Kev Porter Head(s): Shofolualphonso Findings: right PTTD right hindfoot DJD Complications: none Estimated blood loss in ml's: 25 Specimens removed/altered: right PTT at 1617 RPT #:[id number] END OF REPORT [facility] 2022-02-17 10:05:00 [id number] [facility] [address] [place] [address] PATIENT NAME: STEFAN MCLEAN ADMIT DATE: ACCOUNT NO: [id number] ROOM NO: AGE: 56 REPORT TYPE: ELECTROCARDIOGRAM SEX: M ADMITTING PHYSICIAN: ATTENDING PHYSICIAN:Wayne Quintero MD Order: [id number] Test Reason : HTN Test Date/Time Stamp: [...] ECGs available Confirmed by DELILAH HUERTA MD ([id number]) on 02/18/2022 3:24:00 PM Referred By: Wayne Quintero Confirmed by:DELILAH HUERTA MD PATIENT NAME: [facility]
[2024-11-19 12:04] LABS: Absolute Lymphocytes (CBC) 2.4 K/uL (0.7-4.9); Hematocrit 44.3 % (39.6-49.0); Hemoglobin 15.0 g/dL (13.6-17.9); MCH 29.2 pg (27.0-35.0); MCHC 33.9 g/dL (32.0-36.0); MCV 86.2 fL (80-100); MPV 7.3 fL (7.6-11.3); Nucleated RBC Absolute Count 0.0 (0-0); Nucleated Red Blood Cells % 0.1 % (0-0); RBC Red Blood Cell Count 5.14 M/uL (4.33-5.43); White Blood Count 11.70 thou/uL (4.3-10.9)
--- NOTE | 2024-11-19 12:19 | RAD REPORT ---
EXAMINATION: ONE VIEW CHEST XR CLINICAL INDICATION: CHEST PAIN TECHNIQUE: Frontal chest projection is submitted. Examination is limited by patient positioning and t echnique. COMPARISON: 11/13/2024 FINDINGS: The lungs are well inflated and clear. The heart is upper limit of normal in size. No displaced fract ures identified. IMPRESSION: No acute intrathoracic abnormalities.
[2024-11-19 12:21] LABS: Anion Gap 10.6 mEq/L (5.0-15.0); BUN Blood Urea Nitrogen 14.0 mg/dL (7-18); Glucose Level 120.0 mg/dL (74-106); Magnesium 1.8 mg/dL (1.6-2.4); NT PRO-BNP 225.0 pg/mL (<125); Potassium 3.6 mEq/L (3.5-5.1)
[2024-11-19 12:23] LABS: Troponin High Sensitivity 2509.7 pg/mL (<58.9)
--- NOTE | 2024-11-19 12:57 | ER ---
Nurse's Notes [facility] Name: Ellis Girard Age: 59 yrs Sex: Male : 1965 Arrival Date: 11/19/2024 Time: 11:25 Bed 15 Private MD: Diagnosis: NSTEMI Presentation: 11/19 11:37 Chief complaint: Patient states: WAS HERE THIS PAST WEEK WITH CARDIAC STENTS PLACED, dd2 D/C HOME YESTERDAY. GOT UP THIS MORNING AND BECAME DIZZY, DIAPHORETIC WITH SQUEEZING CHEST PAIN POST SHOWER. Coronavirus screen: At this time, the client does not indicate any symptoms associated with coronavirus-19. Ebola Screen: No symptoms or risks identified at this time. Initial Sepsis Screen: Does the patient meet any 2 criteria? No. Patient's initial sepsis screen is negative. Does the patient have a suspected source of infection? No. Patient's initial sepsis screen is negative. Risk Assessment: Do you want to hurt yourself or someone else? Patient reports no desire to harm self or others. Onset of symptoms was November 19, 2024. 11:37 Method Of Arrival: Wheelchair dd2 11:37 Acuity: NATACHA 3 dd2 Triage Assessment: 11:37 General: Appears ill, Behavior is cooperative, appropriate for age, anxious. Pain: dd2 Complains of pain in anterior aspect of left upper chest and mid-sternal area Quality of pain is described as squeezing. Cardiovascular: Reports chest pain, diaphoresis, DIZZINESS. Historical: - Allergies: 11:28 Iodine; ll1 - PMHx: 11:28 Hypercholesterolemia; Hypertension; mitral valve prolapse; Sleep Apnea; ll1 - PSHx: 11:28 vertebral replacement; heart stents (vertebral replacement); ll1 - Immunization history:: Adult Immunizations up to date. - Infectious Disease History:: Denies. - Social history:: Smoking status: Patient denies any tobacco usage or history of. Screenin:53 [facility] ED Fall Risk Assessment (Adult) History of falling in the last 3 months, jb4 including since admission No falls in past 3 months (0 pts) Confusion or Disorientation No (0 pts) Intoxicated or Sedated No (0 pts) Impaired Gait No (0 pts) Mobility Assist Device Used No (0 pt) Altered Elimination No (0 pt) Score/Fall Risk Level 0 - 2 = Low Risk Oriented to surroundings, Maintained a safe environment. Abuse screen: Denies threats or abuse. Nutritional screening: No deficits noted. Tuberculosis screening: No symptoms or risk factors identified. Assessment: 11:53 General: Appears in no apparent distress. uncomfortable, Behavior is calm, cooperative, jb4 appropriate for age. Pain: Complains of pain in chest Pain does not radiate. Pain currently is 8 out of 10 on a pain scale. Neuro: Level of Consciousness is awake, alert, obeys commands, Oriented to person, place, time, situation. Cardiovascular: Patient's skin is warm and dry. Respiratory: Airway is patent Respiratory effort is even, unlabored, Respiratory pattern is regular, symmetrical. Derm: Skin is intact, Skin is pink, warm \T\ dry. Musculoskeletal: Circulation, motion, and sensation intact. Range of motion: intact in all extremities. 12:05 Reassessment: Report given to ELVA Bear. jb4 13:00 Reassessment: Patient appears in no apparent distress at this time. Patient and/or kj2 family updated on plan of care and expected duration. Pain level reassessed. Patient is alert, oriented x 3, equal unlabored respirations, skin warm/dry/pink. 13:35 Reassessment: PTT sent at 1335. kj2 13:55 Reassessment: Patient appears in no apparent distress at this time. Patient and/or kj2 family updated on plan of care and expected duration. Pain level reassessed. Patient is alert, oriented x 3, equal unlabored respirations, skin warm/dry/pink. Vital Signs: 11:37 BP 144 / 93; Pulse 94; Resp 17; Temp 97.5; Pulse Ox 97% on R/A; Weight 133.3 kg; Pain dd2 6/10; 13:00 BP 113 / 79; Pulse 79; Resp 18; Pulse Ox 95% on R/A; kj2 13:54 BP 119 / 83; Pulse 76; Resp 20; Pulse Ox 97% on R/A; kj2 11:37 Pain Scale: Adult dd2 ED Course: 11:27 Patient arrived in ED. sj2 11:28 Arm band placed on Patient placed in an exam room, on a stretcher. ll1 11:29 Gayatri Marie FNP-C is PHCP. kb 11:29 Fred Toro MD is Attending Physician. kb 11:37 EKG completed in triage. Results shown to MD. dd2 11:40 Triage completed. dd2 11:53 Patient has correct armband on for positive identification. Bed in low position. Call jb4 light in reach. Side rails up X 1. Provided Education on: plan of care. Client placed on continuous cardiac and pulse oximetry monitoring. NIBP monitoring applied. postal clerk on. Pulse ox on. 11:53 No provider procedures requiring assistance completed. Inserted saline lock: 22 gauge jb4 in right hand, using aseptic technique. Blood collected. Patient maintains SpO2 saturation greater than 95% on room air. 12:09 XRAY Chest (1 view) In Process Unspecified. EDMS 12:09 Basic Metabolic Panel Sent. jb4 12:09 CBC with Diff Sent. jb4 12:09 NT PRO-BNP Sent. jb4 12:09 Troponin HS Sent. jb4 12:57 Latesha Armendariz MD is Hospitalizing Provider. kb 13:05 Marianela Chavez, ELVA is Primary Nurse. kj2 13:57 Protime (+inr) Sent. kj2 13:57 Ptt, Activated Sent. kj2 15:05 Patient admitted, IV remains in place. kj2 Administered Medications: 13:38 Drug: morphine IVP or IV 4 mg IVP once over 4 mins Route: IVP; Infused Over: 4 mins; kj2 Site: right hand; 14:00 Follow up: Response: No adverse reaction; Pain is decreased kj2 13:38 Drug: Ondansetron IVP 4 mg IVP once; over 2 minutes Route: IVP; Site: right hand; kj2 14:00 Follow up: Response: No adverse reaction kj2 13:52 Drug: Heparin (HI Drip) 12 units/kg/[place] - ([place] [address] units, D5W IV 500 ml) IV at kj2 calculated rate Per protocol; Max initial rate 1000 units/hr {Co-Signature: thiago (Alan Joe RN).} Route: IV; Rate: calculated rate; Site: right hand; 15:06 Follow up: IV Status: Infusion continued upon admission kj2 13:52 Drug: Heparin (HI-Bolus No thrombolytic) - HEParin IVP 60 units/kg IVP once; Max 5000 kj2 units {Co-Signature: ll1 (Alan Joe RN).} Route: IVP; Site: right hand; 15:06 Follow up: Response: No adverse reaction kj2 Medication: 12:09 VIS not applicable for this client. jb4 Outcome: 12:57 Decision to Hospitalize by Provider. kb 15:04 Admitted to Med/surg accompanied by tech, via stretcher, kj2 15:04 Condition: stable 15:04 Instructed on the need for admit, 15:06 Patient left the ED. kj2 Signatures: Dispatcher [employer] EDMS Gayatri Marie, JON-C VENDOR MANAGEMENT ASSOCIATE-CkWojciech Loco, RN RN jb4 Alan Joe, RN RN ll1 Marianela Chavez RN RN kj2 TIFFANIE ZAMBRANO RN RN dd2 Alex Castle 2 Alan Joe RN ll1 Corrections: (The following items were deleted from the chart) 13:56 13:55 BP 113 / 79; Pulse 79bpm; Resp 18bpm; Pulse Ox 95% RA; kj2 kj2
--- NOTE | 2024-11-19 12:57 | EDPHYS ---
Physician Documentation [facility] Name: Ellis Girard Age: 59 yrs Sex: Male : 1965 Arrival Date: 11/19/2024 Time: 11:25 Bed 15 Private MD: ED Physician Fred Toro HPI: 11/19 12:50 This 59 yrs old Male presents to ER via Wheelchair with complaints of Chest Pain. kb 12:50 Patient is a 59-year-old male who presents for chest tightness and lightheadedness that kb started this morning. states that patient was admitted last week, had heart cath with stent placement on and discharged on Wednesday. States patient started moving around more this morning and developed the same symptoms that brought him in last week so she brought him back to make sure everything was okay. states that Dr. Russell did the cath and stent placement but Dr. Mace followed him in the hospital after that and discharged him yesterday.. Historical: - Allergies: 11:28 Iodine; ll1 - PMHx: 11:28 Hypercholesterolemia; Hypertension; mitral valve prolapse; Sleep Apnea; ll1 - PSHx: 11:28 vertebral replacement; heart stents (vertebral replacement); ll1 - Immunization history:: Adult Immunizations up to date. - Infectious Disease History:: Denies. - Social history:: Smoking status: Patient denies any tobacco usage or history of. ROS: 11:37 Constitutional: As per HPI kb Exam: 11:37 ECG was reviewed by the Attending Physician. kb 11:37 Constitutional: This is a well developed, well nourished patient who is awake, alert, kb and in no acute distress. Head/Face: Normocephalic, atraumatic. ENT: Moist Mucous membranes Cardiovascular: Regular rate Respiratory: Respirations even and unlabored. No increased work of breathing. Talking in full sentences Abdomen/GI: Soft, non-tender. No distention Skin: Warm, dry with normal turgor. Normal color. MS/ Extremity: Pulses equal, no cyanosis. Neurovascular intact. Full, normal range of motion. Neuro: Awake and alert, GCS 15, oriented to person, place, time, and situation. Vital Signs: 11:37 BP 144 / 93; Pulse 94; Resp 17; Temp 97.5; Pulse Ox 97% on R/A; Weight 133.3 kg; Pain dd2 6/10; 13:00 BP 113 / 79; Pulse 79; Resp 18; Pulse Ox 95% on R/A; kj2 13:54 BP 119 / 83; Pulse 76; Resp 20; Pulse Ox 97% on R/A; kj2 11:37 Pain Scale: Adult dd2 MDM: 11:30 Medical Screening Exam initiated kb 12:49 Differential diagnosis: acute mi, arrhythmia, cad. Data reviewed: vital signs, nurses kb notes. Management of patient was discussed with the following: Stevedore Hold: Message left with Dr Mace at 1226. Awaiting callback. Historians other than the Patient: Spouse/Significant Other: . 12:54 Consideration of Admission/Observation Patient was admitted/placed on observation. kb Escalation of care including admission/observation considered. Management of patient was discussed with the following: Stevedore Hold: Dr Russell accepts pt for consult. Requests heparin and continue brilinta and aspirin. 12:56 Counseling: I had a detailed discussion with the patient and/or guardian regarding the kb historical points, exam findings, and any diagnostic results supporting the discharge/admit diagnosis, lab results, radiology results, the need for further work-up and treatment in the hospital. 12:57 Management of patient was discussed with the following: Hospitalist: hospitalist team, pt accepted for admission under Dr Armendariz. 11/19 11:30 Order name: Basic Metabolic Panel; Complete Time: 12:24 kb 11/19 11:30 Order name: CBC with Diff; Complete Time: 12:17 kb 11/19 11:30 Order name: Magnesium; Complete Time: 12:24 kb 11/19 11:30 Order name: NT PRO-BNP; Complete Time: 12:24 kb 11/19 11:30 Order name: Troponin HS; Complete Time: 12:24 kb 11/19 13:31 Order name: Protime (+inr); Complete Time: 14:01 kb 11/19 13:31 Order name: Ptt, Activated; Complete Time: 14:01 kb 11/19 13:41 Order name: Basic Metabolic Panel EDMS 11/19 13:41 Order name: Basic Metabolic Panel EDMS 11/19 13:41 Order name: Basic Metabolic Panel EDMS 11/19 13:41 Order name: CBC with Automated Diff EDMS 11/19 13:41 Order name: CBC with Automated Diff EDMS 11/19 13:41 Order name: CBC with Automated Diff EDMS 11/19 13:41 Order name: Lipid Profile EDMS 11/19 13:41 Order name: Lipid Profile EDMS 11/19 13:41 Order name: PTT, Activated Partial Thromb EDMS 11/19 13:41 Order name: PTT, Activated Partial Thromb EDMS 11/19 13:41 Order name: Troponin High Sensitivity EDMS 11/19 13:41 Order name: Troponin High Sensitivity EDMS 11/19 13:41 Order name: Troponin High Sensitivity EDMS 11/19 11:30 Order name: XRAY Chest (1 view); Complete Time: 12:23 kb 11/19 13:34 Order name: CONS Physician Consult EDMS 11/19 13:41 Order name: EKG Electrocardiogram EDMS 11/19 13:41 Order name: EKG Electrocardiogram EDMS 11/19 13:41 Order name: EKG Electrocardiogram EDMS 11/19 11:30 Order name: Cardiac monitoring; Complete Time: 12:09 kb 11/19 11:30 Order name: EKG - Nurse/Tech; Complete Time: 12:08 kb 11/19 11:30 Order name: IV Saline Lock; Complete Time: 12:08 kb 11/19 11:30 Order name: Labs collected and sent; Complete Time: 12:08 kb 11/19 11:30 Order name: O2 Per Protocol; Complete Time: 12:08 kb 11/19 11:30 Order name: O2 Sat Monitoring; Complete Time: 12:08 kb EC:37 Rate is 93 beats/min. Rhythm is regular. QRS [place] is Normal. GA interval is normal at kb 188 msec. QRS interval is normal at 92 msec. QT interval is normal at 410 msec. Administered Medications: 13:38 Drug: morphine IVP or IV 4 mg IVP once over 4 mins Route: IVP; Infused Over: 4 mins; kj2 Site: right hand; 14:00 Follow up: Response: No adverse reaction; Pain is decreased kj2 13:38 Drug: Ondansetron IVP 4 mg IVP once; over 2 minutes Route: IVP; Site: right hand; kj2 14:00 Follow up: Response: No adverse reaction kj2 13:52 Drug: Heparin (OR Drip) 12 units/kg/[place] - ([place] [address] units, D5W IV 500 ml) IV at kj2 calculated rate Per protocol; Max initial rate 1000 units/hr {Co-Signature: ll1 (Alan Joe RN).} Route: IV; Rate: calculated rate; Site: right hand; 15:06 Follow up: IV Status: Infusion continued upon admission kj2 13:52 Drug: Heparin (OR-Bolus No thrombolytic) - HEParin IVP 60 units/kg IVP once; Max 5000 kj2 units {Co-Signature: ll1 (Alan Joe RN).} Route: IVP; Site: right hand; 15:06 Follow up: Response: No adverse reaction kj2 Disposition: 16:44 Co-signature as Attending Physician, Fred Toro MD I reviewed the patient's care rn provided by the Advanced Practice Provider and agree with the diagnosis and treatment plan. Disposition Summary: 11/19/24 12:57 Hospitalization Ordered Notes: Hospitalization Status: Inpatient Admission kb Provider: Latesha Armendariz Condition: Stable kb Problem: new kb Symptoms: are unchanged kb Bed/Room Type: Standard kb Location: Telemetry/MedSurg (Inpatient)(11/19/24 13:52) eb Room Assignment: 228(11/19/24 13:52) eb Diagnosis - NSTEMI kb Forms: - Medication Reconciliation Form kb - SBAR form kb - Leadership Thank You Letter kb Critical care time excluding procedures: 12:58 Critical care time: Bedside Care: 10 minutes, Consultation: 11 minutes, Family kb Intervention: 10 minutes. Total time: 31 minutes Signatures: Dispatcher [employer] EDAZ Gayatri Marie, SUPERVISOR TOY ASSEMBLY-C SUPERVISOR TOY ASSEMBLY-Ckb Fred Toro MD MD rn Botello, Elizabeth eb Lewis, Lynsay, RN RN ll1 Marianela Chavez RN RN kj2 TIFFANIE ZAMBRANO RN RN dd2 Alan Joe RN ll1 Corrections: (The following items were deleted from the chart) 11:30 11:30 Chest Single View+RAD.RAD.BRZ ordered. [facility] EDAZ 13:08 12:57 Telemetry/MedSurg (Inpatient) kb kb 13:08 12:57 kb kb 13:52 13:08 Intensive Care Unit kb eb 13:52 13:08 kb eb
[2024-11-19] MEDS ORDERED: HEPARIN 5000 UNIT/ML 1 ML VIAL ONE (13:25)
[2024-11-19] MEDS ORDERED: ONDANSETRON 4 MG/2 ML VIAL ONE (13:25)
[2024-11-19] MEDS ORDERED: MORPHINE 4 MG/ML SYR ONE (13:26)
[2024-11-19] MEDS ORDERED: HEPARIN/D5W 25,000 UNIT/500 ML BAG IV ONE (13:26)
[2024-11-19 13:58] LABS: PT Prothrombin Time 14.5 SECONDS (10-13.0); PTT, Activated Partial Thromb 31.5 SECONDS (27.2-37.4); Protime INR 1.29
[2024-11-19] MEDS ORDERED: MELOXICAM 15 MG PO PRN (14:19)
--- NOTE | 2024-11-19 14:38 | P.HP ---
Certification for Inpatient Patient admitted to: Observation With expected LOS: <2 Midnights Patient will require the following post-hospital care: None Practitioner: I am a practitioner with admitting privileges, knowledge of patient current condition, hospital course, and medical plan of care. Services: Services provided to patient in accordance with Admission requirements found in Title 42 Section 412.3 of the Code of Federal Regulations Patient History Date of Service: 11/19/24 Primary Care Provider: Kenzie Brewster DNP Reason for admission: Chest pain, ACS rule out History of Present Illness: Ellis Troncoso presented with sudden onset, severe chest pain that began this morning. He described the pain as similar to the symptoms that led to his previous hospitalization last week. He reported intermittent chest pain and dizziness occurring together; sometimes the dizziness would precede the chest pain, and at other times, the chest pain would appear first, but both symptoms invariably co-occurred. He denied nausea, vomiting, or diarrhea. The dizziness reportedly started when he attempted to get out of bed this morning. He also reported eating pancakes for breakfast with one cup of coffee. He stated that he successfully obtained his Plavix from the pharmacy and has been taking it as prescribed since his discharge, along with his aspirin, statin, and other regular medications. He denied any periods of overexertion. Past Medical History: - Hypercholesterolemia - Hypertension - Mitral valve prolapse - Sleep apnea - Prior vertebral replacement - Heart stents Meds: - Allopurinol 300 mg by mouth daily for gout - Aspirin 81 mg for cardiac prevention - Brilinta 90 mg twice daily, status post stent placement - Crestor 20 mg by mouth once daily - Ambien 12.5 mg by mouth at bedtime for insomnia - Melatonin 10 mg by mouth at bedtime for insomnia - Meloxicam 15 mg by mouth once daily for chronic musculoskeletal pain - Tramadol with acetaminophen 37.5 mg to 325 mg every 4 hours as needed for pain - Montelukast 10 mg by mouth once daily for rhinitis Allergies Iodinated Contrast Media Allergy (Verified 02/23/19 15:17) Anaphylaxis codeine Adverse Reaction (Verified 02/23/19 15:17) agitation, hyperactivity Home medications list reviewed: Yes Home Medications: Allopurinol 300 mg PO DAILY 04/29/17 Gabapentin 600 mg PO BID 04/29/17 Lisinopril/Hydrochlorothiazide [Lisinopril-Hctz 10-12.5 mg Tab] 1 each PO DAILY 04/29/17 Montelukast [Singulair*] 10 mg PO DAILY 04/29/17 Zolpidem Tartrate [Ambien] 12.5 mg PO BEDTIME 04/29/17 Cetirizine HCl [Zyrtec] 10 mg PO DAILY 02/23/19 Tramadol HCl/Acetaminophen [Ultracet Tablet] 1 each PO Q4H PRN #30 tablet 02/27/19 Calcium Carb, Citrate/Vit D3 [Citracal-D3 ER 600 mg-12.5 Mcg] 1 each PO DAILY 11/14/24 Magnesium Oxide 500 mg PO DAILY 11/14/24 Mecobalamin [B12 Active] 2,500 mcg PO DAILY 11/14/24 Meloxicam [Mobic] 15 mg PO DAILYPRN PRN 11/14/24 Metformin ER [Glucophage ER*] 500 mg PO DAILY 11/14/24 Aspirin [Aspirin EC 81 MG] 81 mg PO DAILY #30 tab 11/18/24 Rosuvastatin [Crestor*] 20 mg PO BEDTIME #30 tab 11/18/24 Ticagrelor [Brilinta*] 90 mg PO BID #60 tab 11/18/24 Ticagrelor [Brilinta] 90 mg PO BID 11/19/24 - Past Medical/Surgical History Has patient received pneumonia vaccine in the past: No Diabetic: No -: mitral valve prolapse -: HTN -: sleep apnea -: morbid obesity -: HLD -: Hernia repair; rotator cuff BL; neck -: vertebral replacement -: Heart stents, last 11/16/24 - Family History Father -: Heart disease - Social History Smoking Status: Never smoker Alcohol use: No CD- Drugs: No Caffeine use: No Place of Residence: Home Review of Systems 10-point ROS is otherwise unremarkable Physical Examination - Physical Exam General: Alert, Oriented x3, Cooperative, Obese HEENT: Atraumatic, Normocephalic, Mucous membr. moist/pink Neck: Supple, JVD not distended, No Thyromegaly, No LAD Respiratory: Clear to auscultation bilaterally, Normal air movement Cardiovascular: No edema, Normal pulses, Regular rate/rhythm, Normal S1 S2, No gallops, No rubs, No murmurs Capillary refill: Brisk Gastrointestinal: Normal bowel sounds, Soft and benign, Non-distended, W/out hepatosplenomegaly Musculoskeletal: No clubbing, No swelling, No contractures, No erythema, No tenderness, No warmth Integumentary: No rashes, No breakdown, No significant lesion, No tenderness/swelling, No erythema, No warmth, No cyanosis Neurological: Normal speech, Normal tone, Sensation intact, Cranial nerves 3-12 intact, Normal affect, Abnormal strength (BUE, BLE 3/5) - Studies Laboratory Data (last 24 hrs) 11/19/24 11/19/24 11:53 11:53 WBC 11.70 H Hgb 15.0 Hct 44.3 Plt Count 372 Sodium 135 L Potassium 3.6 BUN 14 Creatinine 0.98 Glucose 120 H Magnesium 1.8 Assessment and Plan - Plan Assessment: 59-year-old male admitted for ACS rule out due to recurrence of chest pain with dizziness starting morning of 11/19 after having stent placement with Dr. Russell 11/16. Dr. Russell consulted and following. Plan: Re-presentation with Chest Pain NSTEMI, Unstable angina Hypertension Hyperlipidemia DDx: Acute myocardial infarction, Coronary artery disease, Post-procedural pericarditis - Initiation of heparin drip and bolus - Continuation of Brilinta 90 mg BID PO - Continuation of Aspirin 81 mg PO daily - Continue Crestor 40 mg once daily - morphine 2 mg IV every 4 hours as needed for chest pain, monitoring for toxicity - Cardiology consulted and following Dispo: Cardiology recommendations Anticipate home with no needs Discharge Plan: Home Plan to discharge in: 24 Hours - Advance Directives Does patient have a Living Will: No Does patient have a Durable POA for Healthcare: No - Code Status/Comfort Care Code Status Assessed: Yes (Full code)
[2024-11-19] MEDS: HEPARIN/D5W 25,000 UNIT/500 ML BAG IV SCH (15:10)
[2024-11-19 15:22] VITALS: BMI 40.7
[2024-11-19 18:42] LABS: PT Prothrombin Time 14.9 SECONDS (10-13.0); Protime INR 1.33
[2024-11-19] MEDS: ROSUVASTATIN 10 MG TAB PO SCH (20:10)
[2024-11-19] MEDS: ZOLPIDEM TARTRATE 10 MG TABLET PO SCH (20:10)
[2024-11-19] MEDS: GABAPENTIN 300 MG CAP PO SCH (20:11)
[2024-11-19] MEDS: TICAGRELOR 90 MG TABLET PO SCH (20:11)
[2024-11-19] MEDS ORDERED: TICAGRELOR 90 MG TABLET PO SCH (21:00)
[2024-11-19] MEDS ORDERED: HOME MED 1 EA UNK (Gabapentin [Gabapentin] 600 MG Tablet) PO SCH (21:00)
[2024-11-19 22:45] LABS: HDL Cholesterol 37.0 mg/dL (40-60); LDL Cholesterol, Calculated 69.0 mg/dL (<130); LDL Cholesterol,Calc NonReport 69.0
[2024-11-19] MEDS: TRAMADOL 37.5mg/APAP 325mg PER TAB PO PRN (23:20)
[2024-11-19] MEDS: ACETAMINOPHEN 500 MG TAB PO PRN (23:20)
[2024-11-20] MEDS: MORPHINE 4 MG/ML SYR IV PRN ×2 (07:01→19:00)
[2024-11-20 07:42] LABS: Absolute Lymphocytes (CBC) 2.5 K/uL (0.7-4.9); Hematocrit 42.5 % (39.6-49.0); Hemoglobin 14.5 g/dL (13.6-17.9); MCH 29.4 pg (27.0-35.0); MCHC 34.1 g/dL (32.0-36.0); MCV 86.3 fL (80-100); MPV 7.3 fL (7.6-11.3); Nucleated RBC Absolute Count 0.0 (0-0); Nucleated Red Blood Cells % 0.0 % (0-0); RBC Red Blood Cell Count 4.92 M/uL (4.33-5.43); White Blood Count 11.30 thou/uL (4.3-10.9)
[2024-11-20 07:56] LABS: Anion Gap 9.9 mEq/L (5.0-15.0); BUN Blood Urea Nitrogen 13.0 mg/dL (7-18); Glucose Level 111.0 mg/dL (74-106); Potassium 3.9 mEq/L (3.5-5.1)
[2024-11-20] MEDS: CETIRIZINE HCL 5 MG TABLET PO SCH (08:47)
[2024-11-20] MEDS: MONTELUKAST 10 MG TAB PO SCH (08:48)
[2024-11-20] MEDS: ASPIRIN EC 81 MG TAB PO SCH (08:48)
[2024-11-20] MEDS: HYDROMORPHONE HCL 0.5 MG/0.5 ML INJ IV ONE (08:48)
[2024-11-20] MEDS ORDERED: HOME MED 1 EA UNK (Lisinopril/Hydrochlorothiazide [Lisinopril-Hctz 10-12.5 Mg Tab] Tablet) PO SCH (09:00)
[2024-11-20] MEDS ORDERED: HOME MED 1 EA UNK (Cetirizine Hcl [Zyrtec] 10 MG Tablet) PO SCH (09:00)
[2024-11-20] MEDS ORDERED: ASPIRIN EC 81 MG TAB PO SCH (09:00)
[2024-11-20] MEDS: VIT D3 PO SCH (09:00)
[2024-11-20] MEDS: CALCIUM CARB CITRATE PO SCH (09:00)
--- NOTE | 2024-11-20 09:40 | P.PN ---
Subjective Date of Service: 11/20/24 Primary Care Provider: Kenzie Brewster DNP Chief Complaint: Chest pain, ACS rule out Subjective: No new changes Assessed patient sitting up in bed on room air in mild distress with spouse at the bedside. Patient is starting eating breakfast, but says it does not taste good and does not want anymore. States overnight since 3 AM he has had persistent squeezing chest pain that waxes and wanes, but does not go away. Endorses it is still accompanied by dizziness. Denies nausea, vomiting, blurry/double vision, focal motor weakness. Reviewed troponin is already trending down, 2 recent catheterizations that are likely contributors to trauma/irritation, and plan to have Dr. Russell eval him today. Review of Systems 10-point ROS is otherwise unremarkable Physical Examination - Vital Signs Temperature: 98 F Blood Pressure: 126/76 Pulse: 86 Respirations: 18 Pulse Ox (%): 95 - Physical Exam General: Alert, Oriented x3, Mild distress, Obese HEENT: Atraumatic, Normocephalic, Mucous membr. moist/pink Neck: Supple, 2+ carotid pulse no bruit, JVD not distended, No Thyromegaly, No LAD Respiratory: Clear to auscultation bilaterally, Normal air movement Cardiovascular: No edema, Normal pulses, Regular rate/rhythm, Normal S1 S2, No gallops, No rubs, No murmurs Capillary refill: Brisk Gastrointestinal: Normal bowel sounds, Soft and benign, Non-distended, W/out hepatosplenomegaly, No ascites, No tenderness, No masses Musculoskeletal: No clubbing, No swelling, No contractures, No erythema, No tenderness, No warmth Integumentary: No rashes, No breakdown, No significant lesion, No tenderness/swelling, No erythema, No warmth, No cyanosis Neurological: Normal speech, Normal strength at 5/5 x4 extr, Normal tone, Sensation intact, Cranial nerves 3-12 intact, Normal affect - Studies Laboratory Data (last 24 hrs) 11/19/24 11/19/24 11:53 11:53 WBC 11.70 H Hgb 15.0 Hct 44.3 Plt Count 372 Sodium 135 L Potassium 3.6 BUN 14 Creatinine 0.98 Glucose 120 H Magnesium 1.8 Assessment And Plan - Plan Assessment: 59-year-old male admitted for ACS rule out due to recurrence of chest pain with dizziness starting morning of 11/19 after having stent placement with Dr. Russell 11/16. Dr. Russell consulted and following. Plan: Re-presentation with Chest Pain NSTEMI, Unstable angina Hypertension DDx: Acute myocardial infarction, Coronary artery disease, Post-procedural pericarditis - Chest x-ray reviewed without any acute abnormalities Troponin on arrival 2509, downtrend to 1,619 - Initiation of heparin drip and bolus - Continuation of Brilinta 90 mg BID PO - Continuation of Aspirin 81 mg PO daily - morphine 4 mg IV every 4 hours as needed for chest pain, monitoring for toxicity - Cardiology consulted and following Hyperlipidemia - Continue Crestor 40 mg once daily Lipid panel with triglycerides 166, HDL 37, otherwise WNL Dispo: Cardiology recommendations Anticipate home with no needs Discharge Plan: Home Plan to discharge in: 24 Hours - Code Status/Comfort Care Code Status Assessed: No Critical Care: No
[2024-11-20] MEDS: ISOSORBIDE DINIT 20 MG TAB PO SCH (10:52)
[2024-11-20] MEDS: COLCHICINE 0.6 MG TAB PO SCH (10:52)
--- NOTE | 2024-11-20 10:54 | P.CNS ---
Date of Consult: 11/20/24 Primary Care Provider: Kenzie Brewster DNP Chief Complaint: Chest pain, ACS rule out History of Present Illness: Patient with PMH of CAD, recent PTCA Diagonal and PCI RCA, presented with chest pain, happened yesterday, pressure in nature, also report dizziness, denies syncope. Allergies Iodinated Contrast Media Allergy (Verified 02/23/19 15:17) Anaphylaxis codeine Adverse Reaction (Verified 02/23/19 15:17) agitation, hyperactivity Home medications list reviewed: Yes Home Medications: Allopurinol 300 mg PO DAILY 04/29/17 Gabapentin 600 mg PO BID 04/29/17 Lisinopril/Hydrochlorothiazide [Lisinopril-Hctz 10-12.5 mg Tab] 1 each PO DAILY 04/29/17 Montelukast [Singulair*] 10 mg PO DAILY 04/29/17 Zolpidem Tartrate [Ambien] 12.5 mg PO BEDTIME 04/29/17 Cetirizine HCl [Zyrtec] 10 mg PO DAILY 02/23/19 Tramadol HCl/Acetaminophen [Ultracet Tablet] 1 each PO Q4H PRN #30 tablet 02/27/19 Calcium Carb, Citrate/Vit D3 [Citracal-D3 ER 600 mg-12.5 Mcg] 1 each PO DAILY 11/14/24 Magnesium Oxide 500 mg PO DAILY 11/14/24 Mecobalamin [B12 Active] 2,500 mcg PO DAILY 11/14/24 Meloxicam [Mobic] 15 mg PO DAILYPRN PRN 11/14/24 Metformin ER [Glucophage ER*] 500 mg PO DAILY 11/14/24 Aspirin [Aspirin EC 81 MG] 81 mg PO DAILY #30 tab 11/18/24 Rosuvastatin [Crestor*] 20 mg PO BEDTIME #30 tab 11/18/24 Ticagrelor [Brilinta*] 90 mg PO BID #60 tab 11/18/24 Elderberry Fruit [Elderberry] 1,000 mg PO DAILY 11/19/24 Potassium Gluconate [Potassium] 99 mg PO DAILY 11/19/24 Ticagrelor [Brilinta] 90 mg PO BID 11/19/24 Tirzepatide [Mounjaro] 12.5 mg SQ EVERY 7TH DAY 11/19/24 - Past Medical/Surgical History Diabetic: No -: mitral valve prolapse -: HTN -: sleep apnea -: morbid obesity -: HLD -: ankle sx -: vertebral replacement -: Heart stents, last 11/16/24 -: suraj knee meniscus replacement -: hernia removal x2 -: tumor removal R hip - Family History Father Medical History: Heart disease - Social History Smoking Status: Never smoker Alcohol use: No CD- Drugs: No Caffeine use: No Place of Residence: Home Review of Systems 10-point ROS is otherwise unremarkable Physical Examination Temp Pulse Resp BP Pulse Ox 98 F 86 18 126/76 95 11/20/24 09:40 11/20/24 09:40 11/20/24 09:40 11/20/24 09:40 11/20/24 09:40 General: Alert, In no apparent distress HEENT: Atraumatic, PERRLA, Mucous membr. moist/pink, EOMI, Sclerae nonicteric Neck: Supple, 2+ carotid pulse no bruit, No LAD, Without JVD or thyroid abnormality Respiratory: Clear to auscultation bilaterally, Normal air movement Cardiovascular: Regular rate/rhythm, Normal S1 S2 Gastrointestinal: Normal bowel sounds, No tenderness Musculoskeletal: No tenderness Integumentary: No rashes Neurological: Normal gait, Normal speech, Normal tone, Normal affect Lymphatics: No axilla or inguinal lymphadenopathy Laboratory Data (last 24 hrs) 11/19/24 11/19/24 11:53 11:53 WBC 11.70 H Hgb 15.0 Hct 44.3 Plt Count 372 Sodium 135 L Potassium 3.6 BUN 14 Creatinine 0.98 Glucose 120 H Magnesium 1.8 - Problems (1) NSTEMI (non-ST elevated myocardial infarction) Current Visit: Yes Status: Acute Plan: Patient with recent complex PTCA of diagonal followed by PCI RCA. troponin elevation is from recent procedure and down trending. continue Heparin drip for now continue ASA 81 mg daily continue Brilinta 90 mg po BID Continue Lipitor 40 mg daily start Ranexa 500 mg po BID Start Isordil 20 mg po TID start Colchicine 0.6 mg po BID Continue to monitor on tele and trend cardiac enzymes (2) HTN (hypertension) Onset Date: 04/29/17 Current Visit: No Status: Chronic Plan: continue Lisinopril 10 mg daily continue HCTZ 12.5 mg daily continue to monitor
[2024-11-21 06:11] LABS: Absolute Lymphocytes (CBC) 2.7 K/uL (0.7-4.9); Hematocrit 38.8 % (39.6-49.0); Hemoglobin 13.7 g/dL (13.6-17.9); MCH 30.2 pg (27.0-35.0); MCHC 35.3 g/dL (32.0-36.0); MCV 85.7 fL (80-100); MPV 6.8 fL (7.6-11.3); Nucleated RBC Absolute Count 0.0 (0-0); Nucleated Red Blood Cells % 0.0 % (0-0); RBC Red Blood Cell Count 4.53 M/uL (4.33-5.43); White Blood Count 9.70 thou/uL (4.3-10.9)
[2024-11-21 06:25] LABS: Anion Gap 9.8 mEq/L (5.0-15.0); BUN Blood Urea Nitrogen 14.0 mg/dL (7-18); Glucose Level 118.0 mg/dL (74-106); Potassium 3.8 mEq/L (3.5-5.1)
--- NOTE | 2024-11-21 09:32 | P.PN ---
Date of Service: 11/21/24 [facility] Live Progress Note Subjective Date of Service: 11/21/24 Primary Care Provider: Kenzie Brewster DNP Chief Complaint: Chest pain, ACS rule out Subjective: No new changes Assessed patient lying in bed while wearing nighttime CPAP and spouse at the bedside. Patient began to experience chest pain relief after receiving tramadol with APAP last night and was able to rest comfortably throughout the night. Denies dizziness, but admits has not been out of bed to see if dizziness returns. Review of Systems 10-point ROS is otherwise unremarkable Physical Examination - Vital Signs Temperature: 98 F Blood Pressure: 120/56 Pulse: 87 Respirations: 19 Pulse Ox (%): 94% - Physical Exam General: Alert, Oriented x3, Mild distress, Obese HEENT: Atraumatic, Normocephalic, Mucous membr. moist/pink, CPAP applied Neck: Supple, 2+ carotid pulse no bruit, JVD not distended, No Thyromegaly, No LAD Respiratory: Clear to auscultation bilaterally, Normal air movement Cardiovascular: No edema, Normal pulses, Regular rate/rhythm, Normal S1 S2, No gallops, No rubs, No murmurs Capillary refill: Brisk Gastrointestinal: Normal bowel sounds, Soft and benign, Non-distended, W/out hepatosplenomegaly, No ascites, No tenderness, No masses Musculoskeletal: No clubbing, No swelling, No contractures, No erythema, No tenderness, No warmth Integumentary: No rashes, No breakdown, No significant lesion, No tenderness/swelling, No erythema, No warmth, No cyanosis Neurological: Normal speech, Normal strength at 5/5 x4 extr, Normal tone, Sensation intact, Cranial nerves 3-12 intact, Normal affect - Studies Laboratory Data (last 24 hrs) WBC 9.7 Hematocrit 38.8 APTT 56.8 Troponin 2414 Assessment And Plan - Plan Assessment: 59-year-old male admitted for ACS rule out due to recurrence of chest pain with dizziness starting morning of 11/19 after having stent placement with Dr. Russell 11/16. Dr. Russell consulted and following. Plan: Re-presentation with Chest Pain NSTEMI, Unstable angina DDx: Acute myocardial infarction, Coronary artery disease, Post-procedural pericarditis - Chest x-ray reviewed without any acute abnormalities Troponin on arrival 2509, previously downtrended to 1619, now uptrending to 2414 -Continue of heparin drip and bolus -Continue of Brilinta 90 mg BID PO -Continue of Aspirin 81 mg PO daily Continue Lipitor 40 mg daily Continue Ranexa 500 mg twice daily Continue Isordil 20 mg 3 times daily Continue colchicine 0.6 mg p.o. twice daily -Continue 4 mg IV every 4 hours as needed for chest pain, monitoring for toxicity - Cardiology consulted and following Hypertension Continue lisinopril 10 mg daily Continue HCTZ 12.5 mg daily Monitor vital signs per unit protocol Hyperlipidemia - Continue Crestor 40 mg once daily Lipid panel with triglycerides 166, HDL 37, otherwise WNL Dispo: Cardiology recommendations Anticipate home with no needs Discharge Plan: Home Plan to discharge in: 24 Hours - Code Status/Comfort Care Code Status Assessed: No Critical Care: No
[2024-11-21] MEDS: NA CHLORIDE 0.9% 500 ML ONE (09:41)
[2024-11-21] MEDS ORDERED: LIDOCAINE 1% 20 ML MDV ONE (09:42)
[2024-11-21] MEDS ORDERED: HEPARIN 10,000 UNIT/10 ML VIAL IV ONE ×2 (09:42→11:02)
[2024-11-21] MEDS ORDERED: HEPARIN 5000 UNIT/ML 1 ML VIAL ONE (09:42)
[2024-11-21] MEDS ORDERED: ATROPINE SULF 1 MG/10 ML SYR IV ONE (09:42)
[2024-11-21] MEDS ORDERED: HEPA 1000U/500MLS 2,000 UNIT/1,000 ML BAG IV ONE (09:42)
[2024-11-21] MEDS ORDERED: FLUMAZENIL 0.1 MG/ML (5 mL VIAL) IV ONE (09:43)
[2024-11-21] MEDS ORDERED: NALOXONE 0.4 MG/ML VIAL ONE (09:43)
[2024-11-21] MEDS: FENTANYL CITR 100 MCG/2 ML ONE (10:19)
[2024-11-21] MEDS: MIDAZOLAM HCL 2 MG/2 ML INJ ONE (10:20)
[2024-11-21] MEDS ORDERED: DIPHENHYDRAMINE 50 MG/ML VIAL ONE (10:36)
[2024-11-21] MEDS ORDERED: METHYLPREDNISOLONE 125 MG INJ ONE (10:36)
--- NOTE | 2024-11-21 12:25 | P.PN ---
Subjective Date of Service: 11/21/24 Primary Care Provider: Kenzie Brewster DNP Chief Complaint: Chest pain, ACS rule out Subjective: No new changes, Other (patient continued to have chest pain overnight) Review of Systems 10-point ROS is otherwise unremarkable Physical Examination - Vital Signs Temperature: 97.5 F Blood Pressure: 128/69 Pulse: 87 Respirations: 16 Pulse Ox (%): 95 - Physical Exam General: Alert, In no apparent distress HEENT: Atraumatic, PERRLA, EOMI Neck: Supple, JVD not distended Respiratory: Clear to auscultation bilaterally, Normal air movement Cardiovascular: Regular rate/rhythm, Normal S1 S2 Gastrointestinal: Normal bowel sounds, No tenderness Musculoskeletal: No tenderness Integumentary: No rashes Neurological: Normal speech, Normal tone, Normal affect Lymphatics: No axilla or inguinal lymphadenopathy - Studies Medications List Reviewed: Yes Assessment And Plan - Current Problems (Diagnosis) (1) NSTEMI (non-ST elevated myocardial infarction) Current Visit: Yes Status: Acute Plan: Patient with recent complex PTCA of diagonal followed by PCI RCA. troponin elevated at time of admission, trended down first but went up again so patient had repeated coronary angiogram that shown patent diagonal with distal h ealing dissection, patent RCA stent but we did PCI of LCX/OM1/OM2 bifurcation in colutte technique. D/C Heparin drip continue ASA 81 mg daily continue Brilinta 90 mg po BID Continue Lipitor 40 mg daily continue Ranexa 500 mg po BID continue Isordil 20 mg po TID continue Colchicine 0.6 mg po BID for 1 month Continue to monitor on tele (2) HTN (hypertension) Onset Date: 04/29/17 Current Visit: No Status: Chronic Plan: continue Lisinopril 10 mg daily continue HCTZ 12.5 mg daily continue to monitor
[2024-11-21] MEDS: NA CHLORIDE 0.9% 1,000 ML IV SCH (17:03)
[2024-11-21] MEDS: HEPARIN 5000 UNIT/ML 1 ML VIAL SQ SCH (17:04)
[2024-11-21 23:19] VITALS: O2SAT 94
[2024-11-22 08:20] VITALS: TEMP 97.7
--- NOTE | 2024-11-22 11:13 | P.PN ---
Subjective Date of Service: 11/22/24 Primary Care Provider: Kenzie Brewster DNP Chief Complaint: Chest pain, ACS rule out Subjective: No new changes, No C/O voiced, Tolerating diet, Ambulating, Improving Review of Systems 10-point ROS is otherwise unremarkable Physical Examination - Vital Signs Temperature: 97.7 F Blood Pressure: 125/64 Pulse: 89 Respirations: 16 Pulse Ox (%): 96 - Physical Exam General: Alert, In no apparent distress HEENT: Atraumatic, PERRLA, EOMI Neck: Supple, JVD not distended Respiratory: Clear to auscultation bilaterally, Normal air movement Cardiovascular: Regular rate/rhythm, Normal S1 S2 Gastrointestinal: Normal bowel sounds, No tenderness Musculoskeletal: No tenderness Integumentary: No rashes Neurological: Normal speech, Normal tone, Normal affect Lymphatics: No axilla or inguinal lymphadenopathy - Studies Medications List Reviewed: Yes Assessment And Plan - Current Problems (Diagnosis) (1) NSTEMI (non-ST elevated myocardial infarction) Current Visit: Yes Status: Acute Plan: Patient with recent complex PTCA of diagonal followed by PCI RCA. troponin elevated at time of admission, trended down first but went up again so patient had repeated coronary angiogram that shown patent diagonal with distal healing dissection, patent RCA stent but we did PCI of LCX/OM1/OM2 bifurcation in Rebekah technique. continue ASA 81 mg daily continue Brilinta 90 mg po BID Continue Lipitor 40 mg daily continue Ranexa 500 mg po BID continue Isordil 20 mg po TID continue Colchicine 0.6 mg po BID for 1 month Patient can be discharged home from cardiology standpoint (2) HTN (hypertension) Onset Date: 04/29/17 Current Visit: No Status: Chronic Plan: continue Lisinopril 10 mg daily D/C HCTZ as patient is having dizzy spells. continue to monitor
--- NOTE | 2024-11-22 12:08 | P.DS ---
Admission Date: 11/20/24 Discharge Date: 11/22/24 Primary Care Provider: Kenzie Brewster DNP Disposition: ROUTINE DISCHARGE Discharge Condition: GOOD Reason for Admission: Chest pain, ACS rule out Consultations: Cardiology Procedures: PCI in 11/21/2024 Brief History of Present Illness: Ellis Troncoso presented with sudden onset, severe chest pain that began this morning. He described the pain as similar to the symptoms that led to his previous hospitalization last week. He reported intermittent chest pain and dizziness occurring together; sometimes the dizziness would precede the chest pain, and at other times, the chest pain would appear first, but both symptoms invariably co-occurred. He denied nausea, vomiting, or diarrhea. The dizziness reportedly started when he attempted to get out of bed this morning. He also reported eating pancakes for breakfast with one cup of coffee. He stated that he successfully obtained his Plavix from the pharmacy and has been taking it as prescribed since his discharge, along with his aspirin, statin, and other regular medications. He denied any periods of overexertion. Past Medical History: - Hypercholesterolemia - Hypertension - Mitral valve prolapse - Sleep apnea - Prior vertebral replacement - Heart stents Meds: - Allopurinol 300 mg by mouth daily for gout - Aspirin 81 mg for cardiac prevention - Brilinta 90 mg twice daily, status post stent placement - Crestor 20 mg by mouth once daily - Ambien 12.5 mg by mouth at bedtime for insomnia - Melatonin 10 mg by mouth at bedtime for insomnia - Meloxicam 15 mg by mouth once daily for chronic musculoskeletal pain - Tramadol with acetaminophen 37.5 mg to 325 mg every 4 hours as needed for pain - Montelukast 10 mg by mouth once daily for rhinitis Hospital Course: 1. NSTEMI (Rxy-[id number] elevation myocardial infarction) - Presentation: Presented to the ER with severe chest pain and dizziness, which began this morning. Symptoms were similar to those leading to his admission the previous week. He is status post heart catheterization with stent placement on 11/16/2024. - Investigations: - Troponin: 2,500 - BNP: 225 - ECG: Regular rate and rhythm, normal intervals. - Chest X-ray: No acute intrathoracic abnormalities. - Hospital Course: - Started on a heparin drip and continued on Brilinta and aspirin. Received mor phine for chest pain. - Due to a subsequent rise in troponins after an initial downward trend, a repeat coronary angiogram was performed. - Angiogram revealed a patent diagonal artery with distal healing dissection and a patent RCA stent. - A percutaneous coronary intervention (PCI) of the LCX/OM1/OM2 bifurcation was performed using the Culotte technique. - By 11/22/2024, symptoms had significantly improved, with only minor, transient pinching pain and dizziness on positional changes. - Discharge Plan: - Continue Aspirin 81 mg daily. - Continue Brilinta 90 mg PO BID. - Continue Lipitor 40 mg daily. - Continue Ranexa 500 mg PO BID. - Continue Isordil 20 mg PO TID. - Continue Colchicine 0.6 mg PO BID for one month. - Follow up with Dr. Russell in one week. - Counseled on changing positions slowly to manage dizziness and prevent falls. 2. Hypertension - Presentation: Noted to have a blood pressure of 144/93 in the ER. -Vital signs monitored and home medications resumed - HCTZ was discontinued due to complaints of dizziness. - Discharge Plan: - Continue Lisinopril 10 mg daily. - Continue to monitor blood pressure. Vital Signs/Physical Exam: Temp Pulse Resp BP Pulse Ox 97.7 F 89 16 125/64 96 11/22/24 11:12 11/22/24 11:12 11/22/24 11:12 11/22/24 11:12 11/22/24 11:12 General: Alert, In no apparent distress, Oriented x3, Obese HEENT: Atraumatic, Normocephalic Neck: Supple, JVD not distended Respiratory: Clear to auscultation bilaterally, Normal air movement Cardiovascular: No edema, Normal pulses, Regular rate/rhythm, Normal S1 S2 Gastrointestinal: Normal bowel sounds, Soft and benign, Non-distended Musculoskeletal: No swelling, No contractures, No erythema, No tenderness Integumentary: No rashes, No breakdown, No significant lesion, No tenderness/swelling Neurological: Normal speech, Normal tone, Sensation intact, Normal affect Laboratory Data at Discharge: WBC 9.70 thou/uL (4.3-10.9) 11/21/24 06:03 Hgb 13.7 g/dL (13.6-17.9) 11/21/24 06:03 Hct 38.8 % (39.6-49.0) L 11/21/24 06:03 Plt Count 383 thou/uL (152-406) 11/21/24 06:03 PT 14.9 SECONDS (10-13.0) H 11/19/24 17:52 INR 1.33 11/19/24 17:52 APTT Cancelled 11/21/24 10:00 Sodium 136 mEq/L (136-145) 11/21/24 06:03 Potassium 3.8 mEq/L (3.5-5.1) 11/21/24 06:03 BUN 14 mg/dL (7-18) 11/21/24 06:03 Creatinine 1.10 mg/dL (0.70-1.30) 11/21/24 06:03 Glucose 118 mg/dL (74-106) H 11/21/24 06:03 Magnesium 1.8 mg/dL (1.6-2.4) 11/19/24 11:53 Triglycerides 166 mg/dL (<150) H 11/19/24 22:13 Cholesterol 139 mg/dL (<200) 11/19/24 22:13 HDL Cholesterol 37 mg/dL (40-60) L 11/19/24 22:13 Cholesterol/HDL Ratio 3.76 11/19/24 22:13 Home Medications: Allopurinol 300 mg PO DAILY 04/29/17 Gabapentin 600 mg PO BID 04/29/17 Montelukast [Singulair*] 10 mg PO DAILY 04/29/17 Zolpidem Tartrate [Ambien] 12.5 mg PO BEDTIME 04/29/17 Cetirizine HCl [Zyrtec] 10 mg PO DAILY 02/23/19 Tramadol HCl/Acetaminophen [Ultracet Tablet] 1 each PO Q4H PRN #30 tablet 02/27/19 Calcium Carb, Citrate/Vit D3 [Citracal-D3 ER 600 mg-12.5 Mcg] 1 each PO DAILY 11/14/24 Magnesium Oxide 500 mg PO DAILY 11/14/24 Mecobalamin [B12 Active] 2,500 mcg PO DAILY 11/14/24 Meloxicam [Mobic] 15 mg PO DAILYPRN PRN 11/14/24 Metformin ER [Glucophage ER*] 500 mg PO DAILY 11/14/24 Aspirin [Aspirin EC 81 MG] 81 mg PO DAILY #30 tab 11/18/24 Rosuvastatin [Crestor*] 20 mg PO BEDTIME #30 tab 11/18/24 Ticagrelor [Brilinta*] 90 mg PO BID #60 tab 11/18/24 Elderberry Fruit [Elderberry] 1,000 mg PO DAILY 11/19/24 Potassium Gluconate [Potassium] 99 mg PO DAILY 11/19/24 Ticagrelor [Brilinta*] 90 mg PO BID 11/19/24 Tirzepatide [Mounjaro] 12.5 mg SQ EVERY 7TH DAY 11/19/24 Colchicine [Colcrys *] 0.6 mg PO BID #60 tab 11/22/24 Isosorbide Dinit [Isordil*] 20 mg PO TID #90 tab 11/22/24 Ranolazine [Ranolazine ER] 500 mg PO Q12H #60 tab 11/22/24 Rosuvastatin [Crestor*] 40 mg PO BEDTIME #30 tab 11/22/24 lisinopriL [Prinivil*] 10 mg PO DAILY #30 tab 11/22/24 New Medications: Colchicine [Colcrys *] 0.6 mg PO BID #60 tab Rosuvastatin [Crestor*] 40 mg PO BEDTIME #30 tab Isosorbide Dinit [Isordil*] 20 mg PO TID #90 tab lisinopriL [Prinivil*] 10 mg PO DAILY #30 tab Ranolazine [Ranolazine ER] 500 mg PO Q12H #60 tab Physician Discharge Instructions: -DC IV and DC home -Follow-up with PCP in 1 to 2 weeks -Follow-up with Cardiology in 1 to 2 weeks -Please call Dr. Armendariz at [phone] if any questions regarding hospital stay -Please call nursing station at [phone] if any nursing or medication ques tions -Return to the emergency room if symptoms worsen Diet: AHA Activity: Fall precautions Followup: Kenzie Brewster [Primary Care Provider] - 1-2 Weeks Time spent managing pt's care (in minutes): 38
[2024-11-22 12:36] VITALS: BP 129/84
--- NOTE | 2024-11-22 23:08 | OP ---
Date of Procedure: 11/21/2024 Surgeon: Gabo Russell Procedures Performed: 1. Selective coronary angiogram. 2. PCI of the left circ into OM1 and PCI of the left circ into OM2 with Synergy 2.5 x 32 and Synergy 2.5 x 20 mm drug-eluting stent. Indication For Procedure: [id number]. Complications: None. Estimated Blood Loss: Less than 50 cc. Access: Left common femoral artery closed by an Angio-Seal. Sedation Time: 60 minutes with 1 of Versed and 25 of fentanyl. Description Of Procedure: After risks, benefits, and alternatives were explained to the patient, the patient agreed to proceed with procedure and signed informed consent. The patient was brought back to the slab tripper, prepped and draped in sterile fashion. Time-out was performed. Sedation was admini stered. Next, the left common femoral artery ultrasound-guided micropuncture technique access was ob tained. A 6-Belarusian sheath was inserted. Next, a JL4 catheter was advanced over the J-wire to the ao rtic root. Selective angiogram of the left coronary system was done using that catheter, that was la ter exchanged for a JR4 catheter for selective angiogram of the right coronary system. That catheter was later exchanged with an XB LAD 3.5 mm guide. The Runthrough wire was passed from left circ into the OM1 and then another Runthrough wire from the circ into OM2, pre-dilated the lesions with an NC 2.5 mm balloon. Next, Synergy 2.5 x 32 mm drug-eluting stent was placed from the left circ into OM2, then re-crossed the lesion into the OM1 and pre-dilation was done followed by Synergy 2.[address]-eluting stent into the left circ into OM1. Postdilated post stent with an NC 3.0 mm balloons. Th e final angiogram shows TRISTIAN-3 flow. Catheter was removed over a J-wire. Sheath was removed. Angio -Seal was applied. Hemostasis achieved. The patient was moved back to Recovery in stable condition. Findings: 1. Left main: Normal. 2. LAD: Tortuous with proximal 20% to 30% disease, then take a 90-degree bend, then mid to distal mi ld luminal irregularities. 3. Diagonal 1: Comes on a 90-degree angle from the LAD. Proximal 30% disease. Site of prior PTCA t hat looks patent, distal healing dissection can be seen all the way down distally. 4. Left circ: Proximal luminal irregularities, then mid 80% disease before it bifurcates into OM1 an d OM2, and PCI was done in culotte technique with Synergy 2.5 x 32 and 2.5 x 20 mm drug-eluting stent s into OM1 and OM2. RCA tortuous mid stent patent with mild luminal irregularities. 5. LVEDP 1 mmHg. Assessment And Plan: 1. Significant left circ into OM1 and OM2 disease, status post PCI with Synergy 2.5 x 32 and 2.5 x 20 drug-eluting stents in a culotte technique. 2. Distal diagonal 1 dissection, healing, very small. 3. Patent RCA stent. Plan: 1. Continue aspirin 81 mg daily for life. 2. Continue Brilinta 90 mg p.o. b.i.d. for 12 months. LEOPOLDO/[place] Voice ID: [id number] Report ID: [id number]
== END 2024-11-22 13:44 | disposition home or self-care (01) | DRG 322 ==
LOC: ER 11:25 → ERHOLD 13:30 → 2ND 14:35 → OBSVTOIN 11-20 10:56
PROVIDERS: ADMIT Hospitalist; ATTEND Hospitalist
PROC: 05HB33Z Insertion of Infusion Device into Right Basilic Vein, Percutaneous Approach (ICD-10-PCS; 2024-11-20)
PROC: 027035Z Dilation of Coronary Artery, One Artery with Two Drug-eluting Intraluminal Devices, Percutaneous Approach (ICD-10-PCS; principal; 2024-11-21)
PROC: 4A023N7 Measurement of Cardiac Sampling and Pressure, Left Heart, Percutaneous Approach (ICD-10-PCS; 2024-11-21)
PROC: B2111ZZ Fluoroscopy of Multiple Coronary Arteries using Low Osmolar Contrast (ICD-10-PCS; 2024-11-21)
DX: I21.4 Non-ST elevation (NSTEMI) myocardial infarction (principal); Z68.41 Body mass index [BMI] 40.0-44.9, adult; E66.01 Morbid (severe) obesity due to excess calories; I10 Essential (primary) hypertension; E78.00 Pure hypercholesterolemia, unspecified; I25.110 Atherosclerotic heart disease of native coronary artery with unstable angina pectoris; Z88.5 Allergy status to narcotic agent; Z95.5 Presence of coronary angioplasty implant and graft; Z79.82 Long term (current) use of aspirin; Z79.84 Long term (current) use of oral hypoglycemic drugs; Z79.02 Long term (current) use of antithrombotics/antiplatelets; Z91.041 Radiographic dye allergy status; Z79.899 Other long term (current) drug therapy; Z96.653 Presence of artificial knee joint, bilateral
CPT/HCPCS: 36415; 71045; 76937; 80048; 80061; 82947; 83735; 83880; 84484; 85025; 85347; 85610; 85730; 92928; 92929; 93005; 93458; 94760; 96365; 96375; 99152; 99285; C1725; C1760; C1877; C1893; G0378; J0461; J1171; J1200; J1644; J2003; J2250; J2312; J2405; J2919; J3010; J7030; J7040; Q9967

== ENCOUNTER 2024-12-01 11:34 | Emergency (ER) | payer BC ==
--- NOTE | 2024-12-01 13:53 | RAD REPORT ---
EXAM: Chest Single View HISTORY: 59 years Male Dyspnea;Cough COMPARISON: 11/19/2024 FINDINGS: LUNGS/PLEURA: The lungs are clear. No pleural effusions or pneumothorax. No pulmonary edema. CARDIAC/MEDIASTINUM: The cardiac silhouette is within normal limits. UPPER ABDOMEN: No significant abnormality. BONES: No acute abnormality. ACDF in the cervical spine. LINES/TUBES/OTHER: N/A IMPRESSION: No evidence of acute cardiopulmonary disease.
[2024-12-01 14:18] LABS: Absolute Lymphocytes (CBC) 1.4 K/uL (0.7-4.9); Hematocrit 36.4 % (39.6-49.0); Hemoglobin 12.6 g/dL (13.6-17.9); MCH 29.5 pg (27.0-35.0); MCHC 34.7 g/dL (32.0-36.0); MCV 85.1 fL (80-100); MPV 7.1 fL (7.6-11.3); Nucleated RBC Absolute Count 0.0 (0-0); Nucleated Red Blood Cells % 0.2 % (0-0); RBC Red Blood Cell Count 4.28 M/uL (4.33-5.43); White Blood Count 8.10 thou/uL (4.3-10.9)
[2024-12-01 14:25] LABS: PT Prothrombin Time 14.8 SECONDS (10-13.0); Protime INR 1.32
[2024-12-01 14:37] LABS: ALT/SGPT 32.0 U/L (16-61); AST/SGOT 24.0 U/L (15-37); Albumin 3.4 g/dL (3.4-5.0); Alkaline Phosphatase 48.0 U/L (45-117); Anion Gap 11.0 mEq/L (5.0-15.0); BUN Blood Urea Nitrogen 16.0 mg/dL (7-18); Bilirubin Indirect, Calculated 0.5 mg/dL (0.2-0.8); Globulin 4.1 g/dL (2.3-3.5); Glucose Level 103.0 mg/dL (74-106); Potassium 4.0 mEq/L (3.5-5.1)
[2024-12-01 14:38] LABS: Albumin/Globulin Ratio 0.8 (1.1-1.8); Magnesium 2.0 mg/dL (1.6-2.4); NT PRO-BNP 236.0 pg/mL (<125); Troponin High Sensitivity 17.0 pg/mL (<58.9)
[2024-12-01 14:57] LABS: Influenza A Ag Negative; Influenza B Ag Negative; SARS-CoV-2 Antigen Rapid Res Negative (Negative)
[2024-12-01] MEDS ORDERED: IPRATROPIUM BROM 0.5MG/2.5ML ONE (14:58)
[2024-12-01] MEDS ORDERED: ALBUTEROL 2.5 MG/3 ML NEB SOL ONE (14:58)
[2024-12-01] MEDS ORDERED: predniSONE 20 MG TAB ONE (14:59)
--- NOTE | 2024-12-01 15:34 | ER ---
Nurse's Notes [facility] Name: Ellis Girard Age: 59 yrs Sex: Male : 1965 Arrival Date: 12/01/2024 Time: 11:34 Bed 5 Private MD: Diagnosis: Viral illness, bronchitis Presentation: 12/01 12:30 Chief complaint: Spouse and/or significant other states: on 11/15, 11/21 rec'd a total me1 of 3 heart stents. Started augmentin for cough on 11/25. Almost finished abx and developed low grade fever, cough and tachycardia. Told to come to ER for workup. Coronavirus screen: Vaccine status: Patient reports receiving the 2nd dose of the covid vaccine. Ebola Screen: No symptoms or risks identified at this time. Initial Sepsis Screen: Does the patient meet any 2 criteria? HR > 90 bpm. Does the patient have a suspected source of infection? No. Patient's initial sepsis screen is negative. Risk Assessment: Do you want to hurt yourself or someone else? Patient reports no desire to harm self or others. Onset of symptoms was November 13, 2024. 12:30 Method Of Arrival: Wheelchair me1 12:30 Acuity: NATACHA 3 me1 Triage Assessment: 12:33 General: Appears ill, Behavior is calm, cooperative, appropriate for age. Pain: me1 Complains of pain in chest Pain does not radiate. Pain currently is 4 out of 10 on a pain scale. Quality of pain is described as sharp, Pain began suddenly, Is episodic, Aggravated by cough. Neuro: Level of Consciousness is awake, alert, obeys commands, Oriented to person, place, time, situation, Appropriate for age. Cardiovascular: Patient's skin is warm and dry. Respiratory: Reports shortness of breath at rest on exertion cough that is persistent pain with cough. Derm: Skin is healthy with good turgor, Skin is normal. 15:46 Respiratory: the patient has mild shortness of breath. ap3 Historical: - Allergies: 12:33 Iodine; me1 - PMHx: 12:33 Hypercholesterolemia; Hypertension; mitral valve prolapse; Sleep Apnea; Myocardial me1 infarction; - PSHx: 12:33 Heart Stents (ra); vertebral replacement; me1 - Immunization history:: Adult Immunizations up to date. - Infectious Disease History:: Denies. - Social history:: Smoking status: Patient denies any tobacco usage or history of. Screenin:03 Abuse screen: Denies threats or abuse. Nutritional screening: No deficits noted. ap3 Tuberculosis screening: No symptoms or risk factors identified. 15:46 [facility] ED Fall Risk Assessment (Adult) History of falling in the last 3 months, ap3 including since admission No falls in past 3 months (0 pts) Confusion or Disorientation No (0 pts) Intoxicated or Sedated No (0 pts) Impaired Gait No (0 pts) Mobility Assist Device Used No (0 pt) Altered Elimination No (0 pt) Score/Fall Risk Level 0 - 2 = Low Risk Oriented to surroundings, Maintained a safe environment, Educated pt \T\ family on fall prevention, incl call for assistance when getting out of bed, Assessed \T\ reinforced patient's understanding of fall precautions, Hourly rounding (assess needs \T\ fall precautionary measures) done, Used ambulatory aids as needed (educated on \T\ assisted with). Assessment: 15:03 Cardiovascular: Patient's skin is warm and dry. Respiratory: Reports shortness of ap3 breath Airway is patent Respiratory effort is even, unlabored, Respiratory pattern is regular, symmetrical. 15:25 Reassessment: Patient and/or family updated on plan of care and expected duration. Pain ap3 level reassessed. Patient is alert, oriented x 3, equal unlabored respirations, skin warm/dry/pink. Patient states feeling better. Patient states symptoms have improved. 15:46 Cardiovascular: Rhythm is regular. ap3 Vital Signs: 12:30 BP 132 / 76; Pulse 104; Resp 20; Temp 98.2; Pulse Ox 98% ; Weight 150.14 kg; Height 6 me1 ft. 4 in. ; Pain 0/10; 15:04 BP 124 / 69; Pulse 83; Resp 19; Pulse Ox 100% on Nebulizer Mask; ap3 12:30 Body Mass Index 40.29 (150.14 kg, 193.04 cm) me1 12:30 Pain Scale: Adult me1 ED Course: 11:37 Patient arrived in ED. al6 11:52 Cathy Vanegas MD is Attending Physician. sp3 12:33 Triage completed. me1 12:33 Arm band placed on Patient placed in waiting room. me1 13:44 XRAY Chest (1 view) In Process Unspecified. EDMS 13:50 Missed attempt(s): 22 gauge in right wrist. Bleeding controlled, band aid applied, bc6 catheter tip intact. 14:12 Group A Streptococcus Rapid Sent. bc6 14:12 COVID-19 Ag + Flu A+B Ag Sent. bc6 14:12 CBC with Diff Sent. bc6 14:12 LFT's Sent. bc6 14:12 Magnesium Sent. bc6 14:12 NT PRO-BNP Sent. bc6 14:12 PT-INR Sent. bc6 14:12 Troponin HS Sent. bc6 14:12 Initial lab(s) drawn, by me, sent to lab. COVID swab sent to lab. Strep swab sent to 6 lab. Inserted saline lock: 22 gauge in left forearm, using aseptic technique. Blood collected. Flushed with 10 mL NS. 14:31 Patient has correct armband on for positive identification. Placed in gown. Bed in low ss position. Call light in reach. Side rails up X2. personnel monitor on. Pulse ox on. NIBP on. Warm blanket given. 15:04 Provided Education on: medications prior to administration . ap3 15:46 No provider procedures requiring assistance completed. IV discontinued, intact, ap3 bleeding controlled, No redness/swelling at site. Pressure dressing applied. Administered Medications: 15:03 Drug: DuoNeb Nebulize (3:1) (2.5 mg - 0.5 mg) 3 ml Nebulizer once Route: Nebulizer; ap3 15:25 Follow up: Response: No adverse reaction ap3 15:03 Drug: predniSONE PO 60 mg PO once Route: PO; ap3 15:25 Follow up: Response: No adverse reaction ap3 Medication: 15:04 VIS not applicable for this client. ap3 Outcome: 15:33 Discharge ordered by MD. sp3 15:47 Discharged to home ambulatory, ap3 15:47 Condition: good 15:47 Discharge instructions given to patient, family, Instructed on discharge instructions, ap3 follow up and referral plans. medication usage, Demonstrated understanding of instructions, follow-up care, medications, Prescriptions given X 2, 15:48 Patient left the ED. ap3 Signatures: Dispatcher [employer] [facility] Stephani Rodriguez RN RN aa5 Amina Pardo RN RN ss Tejal Jean RN RN ap3 Cathy Vanegas MD MD sp3 Amy Appiah 6 Mary Loera, ELVA RN me1 Stacey Alford al6 Corrections: (The following items were deleted from the chart) 18:15 14:15 Stephani Rodriguez RN is Primary Nurse. aa5 aa5 18:15 15:46 Respiratory: ap3 aa5
--- NOTE | 2024-12-01 15:34 | EDPHYS ---
Physician Documentation [facility] Name: Elils Girard Age: 59 yrs Sex: Male : 1965 Arrival Date: 12/01/2024 Time: 11:34 Bed 5 Private MD: ED Physician Cathy Vanegas HPI: 12/01 14:52 This 59 yrs old Male presents to ER via Wheelchair with complaints of Cough, Fever, sp3 Shortness Of Breath. 14:52 59-year-old male with history of hypertension, mitral valve prolapse, MICHAEL, sp3 hyperlipidemia presents to the ED for chief complaint cough and wheezing. Patient received 2 cardiac stents several weeks ago. He saw cardiology 2 days ago and his PCP this morning who advised him to come to the ED for workup. Patient states he feels not that bad and does not want to be here. He denies chest pain, back pain or any other anginal equivalents.. Historical: - Allergies: 12:33 Iodine; me1 - PMHx: 12:33 Hypercholesterolemia; Hypertension; mitral valve prolapse; Sleep Apnea; Myocardial me1 infarction; - PSHx: 12:33 Heart Stents (ra); vertebral replacement; me1 - Immunization history:: Adult Immunizations up to date. - Infectious Disease History:: Denies. - Social history:: Smoking status: Patient denies any tobacco usage or history of. ROS: 14:53 Constitutional: Negative for fever, chills, and weight loss, Eyes: Negative for injury, sp3 pain, redness, and discharge, Neck: Negative for injury, pain, and swelling, Cardiovascular: Negative for chest pain, palpitations, and edema, Abdomen/GI: Negative for abdominal pain, nausea, vomiting, diarrhea, and constipation, Back: Negative for injury and pain, MS/Extremity: Negative for injury and deformity, Skin: Negative for injury, rash, and discoloration, Neuro: Negative for headache, weakness, numbness, tingling, and seizure, Psych: Negative for depression, anxiety, suicide ideation, homicidal ideation, and hallucinations, Allergy/Immunology: Negative for hives, rash, and allergies, Endocrine: Negative for neck swelling, polydipsia, polyuria, polyphagia, and marked weight changes, 14:53 All other systems are negative, Exam: 14:55 Constitutional: This is a well developed, well nourished patient who is awake, alert, sp3 and in no acute distress. Head/Face: Normocephalic, atraumatic. Eyes: Pupils equal round and reactive to light, extra-ocular motions intact. Lids and lashes normal. Conjunctiva and sclera are non-icteric and not injected. Cornea within normal limits. Periorbital areas with no swelling, redness, or edema. ENT: Nares patent. No nasal discharge, no septal abnormalities noted. External auditory canals are clear. Oropharynx with no redness, swelling, or masses, exudates, or evidence of obstruction, uvula midline. Mucous membranes moist. Neck: Trachea midline, no thyromegaly or masses palpated, and no cervical lymphadenopathy. Supple, full range of motion without nuchal rigidity, or vertebral point tenderness. No Meningismus. Chest/axilla: Normal chest wall appearance and motion. Nontender with no deformity. No lesions are appreciated. Cardiovascular: Regular rate and rhythm with a normal S1 and S2. No gallops, murmurs, or rubs. Normal PMI, no JVD. No pulse deficits. Abdomen/GI: Soft, non-tender, with normal bowel sounds. No distension or tympany. No guarding or rebound. No evidence of tenderness throughout. Back: No spinal tenderness. No costovertebral tenderness. Full range of motion. Skin: Warm, dry with normal turgor. Normal color with no rashes, no lesions, and no evidence of cellulitis. MS/ Extremity: Pulses equal, no cyanosis. Neurovascular intact. Full, normal range of motion. Neuro: Awake and alert, GCS 15, oriented to person, place, time, and situation. Cranial nerves II-XII grossly intact. Motor strength 5/5 in all extremities. Sensory grossly intact. Cerebellar exam normal. Normal gait. Psych: Awake, alert, with orientation to person, place and time. Behavior, mood, and affect are within normal limits. 14:55 Respiratory: Bilateral wheezing noted, mild in nature. Hoarse voice., 14:58 ECG was reviewed by the Attending Physician. EKG demonstrates normal sinus rhythm at 88 sp3 bpm with a first-degree AV block with [place] interval 202, QTc 418, normal intervals otherwise, normal QRS, normal axis and nonspecific diffuse ST/T changes without evidence of acute ischemia. Vital Signs: 12:30 BP 132 / 76; Pulse 104; Resp 20; Temp 98.2; Pulse Ox 98% ; Weight 150.14 kg; Height 6 me1 ft. 4 in. ; Pain 0/10; 15:04 BP 124 / 69; Pulse 83; Resp 19; Pulse Ox 100% on Nebulizer Mask; ap3 12:30 Body Mass Index 40.29 (150.14 kg, 193.04 cm) me1 12:30 Pain Scale: Adult me1 MDM: 12:49 Medical Screening Exam initiated sp3 14:56 Data reviewed: vital signs, nurses notes, EMS record, old medical records, lab test sp3 result(s), EKG, radiologic studies. ED course: 59-year-old male with PMH above and recent cardiac intervention now with URI symptoms, wheezing and hoarse voice. There was a diagnosis includes viral illness, COVID-19, influenza, pneumonia, bronchitis, CHF, among others. I am not highly suspicious of recurrent ACS, stent occlusion, sepsis, shock or other critical process at this time. Workup will include EKG, chest x-ray and general labs including viral swabs. All labs are normal and x-ray demonstrates no abnormality or infiltrate. Viral swabs pending. Will go ahead and administer albuterol and Atrovent DuoNeb given clinical exam as well as prednisone p.o. If patient feels better and swabs are negative, we will safely discharge patient home to his continued outpatient care team. Heart rate now in the low 90s and remainder vital signs and pulse oxygenation are all normal. Patient resting comfortably in no acute distress. 15:32 ED course: Patient feeling better after nebulizer and steroid. Will discharge on MDI sp3 albuterol and prednisone short course. Swabs are negative. Patient likely has viral illness. Follow-up with PCP and existing care team including cardiology.. 12/01 13:16 Order name: Basic Metabolic Panel; Complete Time: 14:44 sp3 12/01 13:16 Order name: CBC with Diff; Complete Time: 14:27 sp3 12/01 13:16 Order name: LFT's; Complete Time: 14:44 sp3 12/01 13:16 Order name: Magnesium; Complete Time: 14:44 sp3 12/01 13:16 Order name: NT PRO-BNP; Complete Time: 14:44 sp3 12/01 13:16 Order name: PT-INR; Complete Time: 14:27 sp3 12/01 13:16 Order name: Troponin HS; Complete Time: 14:44 sp3 12/01 13:16 Order name: COVID-19 Ag + Flu A+B Ag; Complete Time: 15:24 sp3 12/01 13:17 Order name: Group A Streptococcus Rapid; Complete Time: 14:44 sp3 12/01 14:32 Order name: Throat Culture EDNC 12/01 13:16 Order name: XRAY Chest (1 view); Complete Time: 13:57 sp3 12/01 13:16 Order name: Cardiac monitoring; Complete Time: 14:30 sp3 12/01 13:16 Order name: EKG - Nurse/Tech; Complete Time: 14:12 sp3 12/01 13:16 Order name: IV Saline Lock; Complete Time: 14:12 sp3 12/01 13:16 Order name: Labs collected and sent; Complete Time: 14:12 sp3 12/01 13:16 Order name: O2 Per Protocol; Complete Time: 14:30 sp3 12/01 13:16 Order name: O2 Sat Monitoring; Complete Time: 14:30 sp3 Administered Medications: 15:03 Drug: DuoNeb Nebulize (3:1) (2.5 mg - 0.5 mg) 3 ml Nebulizer once Route: Nebulizer; ap3 15:25 Follow up: Response: No adverse reaction ap3 15:03 Drug: predniSONE PO 60 mg PO once Route: PO; ap3 15:25 Follow up: Response: No adverse reaction ap3 Disposition Summary: 12/01/24 15:33 Discharge Ordered Notes: Location: Home sp3 Condition: Stable sp3 Diagnosis - Viral illness, bronchitis sp3 Followup: sp3 - With: Private Physician - When: Upon discharge from the Emergency Department - Reason: Continuance of care Discharge Instructions: - Discharge Summary Sheet sp3 - Viral Illness, Adult sp3 Forms: - Medication Reconciliation Form sp3 - Antibiotic Education sp3 - Prescription Opioid Use sp3 - Patient Portal Instructions sp3 - Leadership Thank You Letter sp3 Prescriptions: - albuterol sulfate 90 mcg/actuation Inhalation Aerosol Powder, Breath Activated - administer 2 inhalation INHALATION route 4 times per day; 1 Each; Refills: 0, sp3 Product Selection Permitted - Prednisone 20 mg Oral Tablet - take 2 tablets ORAL route once daily for 5 days; 10 tablet; Refills: 0, Product sp3 Selection Permitted Signatures: Dispatcher [employer] EDMS Tejal Jean, ELVA RN ap3 Cathy Vanegas MD MD sp3 Mary Loera RN RN me1 Corrections: (The following items were deleted from the chart) 13:17 13:17 BASIC METABOLIC PANEL+C.LAB.BRZ ordered. EDMS EDMS 13:17 13:17 CBC+H.LAB.BRZ ordered. EDMS EDMS 13:17 13:17 HEPATIC FUNCTION+C.LAB.BRZ ordered. EDMS EDMS 13:17 13:17 MAGNESIUM+C.LAB.BRZ ordered. EDMS EDMS 13:17 13:17 PROBNP+C.LAB.BRZ ordered. EDMS EDMS 13:17 13:17 PROTIME (+INR)+COAG.LAB.BRZ ordered. EDMS EDMS 13:17 13:17 Troponin High Sensitivity+C.LAB.BRZ ordered. EDMS EDMS 13:17 13:17 COVID-19 Ag + Flu A+B Ag+I.LAB.BRZ ordered. EDMS EDMS 13:17 13:17 Chest Single View+RAD.RAD.BRZ ordered. EDMS EDMS 13:18 13:18 Group A Streptococcus Rapid Sc+I.LAB.BRZ ordered. EDMS EDMS
[2024-12-01 18:23] VITALS: TEMP 98.2
[2024-12-01 18:24] VITALS: BP 124/69; O2SAT 100
== END 2024-12-01 15:48 | disposition home or self-care (01) ==
LOC: ER 11:34
DX: J40 Bronchitis, not specified as acute or chronic (principal); Z11.52 Encounter for screening for COVID-19; I10 Essential (primary) hypertension; I25.2 Old myocardial infarction; Z95.818 Presence of other cardiac implants and grafts
CPT/HCPCS: 93005; 87070; 85025; 80048; 36415; 83735; 85610; 80076; 84484; 83880; 71045; 99285; 87428; J7512; J7613; J7644

== ENCOUNTER 2024-12-07 19:54 | Emergency (ER) | payer BC ==
[2024-12-07] MEDS ORDERED: NA CHLORIDE 0.9% 1,000 ML ONE ×2 (20:15→20:47)
[2024-12-07] MEDS ORDERED: ACETAMINOPHEN 500 MG TAB ONE (20:15)
[2024-12-07 20:29] LABS: Absolute Lymphocytes (CBC) 0.4 K/uL (0.7-4.9); Hematocrit 37.4 % (39.6-49.0); Hemoglobin 12.6 g/dL (13.6-17.9); MCH 28.6 pg (27.0-35.0); MCHC 33.8 g/dL (32.0-36.0); MCV 84.5 fL (80-100); MPV 7.2 fL (7.6-11.3); Nucleated RBC Absolute Count 0.0 (0-0); Nucleated Red Blood Cells % 0.1 % (0-0); RBC Red Blood Cell Count 4.43 M/uL (4.33-5.43); White Blood Count 21.60 thou/uL (4.3-10.9)
[2024-12-07 20:43] LABS: PT Prothrombin Time 16.4 SECONDS (10-13.0); PTT, Activated Partial Thromb 23.6 SECONDS (27.2-37.4); Protime INR 1.47
[2024-12-07] MEDS ORDERED: NA CHLORIDE 0.9% 100 ML ONE (20:47)
[2024-12-07] MEDS ORDERED: ALBUTEROL 2.5 MG/3 ML NEB SOL ONE (20:47)
[2024-12-07] MEDS ORDERED: CEFEPIME 2 GM VIAL ONE (20:47)
[2024-12-07 20:55] LABS: ALT/SGPT 27.0 U/L (16-61); AST/SGOT 20.0 U/L (15-37); Albumin 3.1 g/dL (3.4-5.0); Albumin/Globulin Ratio 0.7 (1.1-1.8); Alkaline Phosphatase 68.0 U/L (45-117); Anion Gap 12.6 mEq/L (5.0-15.0); BUN Blood Urea Nitrogen 26.0 mg/dL (7-18); Globulin 4.3 g/dL (2.3-3.5); Glucose Level 142.0 mg/dL (74-106); NT PRO-BNP 348.0 pg/mL (<125); Potassium 3.6 mEq/L (3.5-5.1); Troponin High Sensitivity 10.1 pg/mL (<58.9)
[2024-12-07 21:00] LABS: Influenza A Ag Negative; Influenza B Ag Negative; SARS-CoV-2 Antigen Rapid Res Negative (Negative)
[2024-12-07] MEDS ORDERED: VANCOMYCIN 1 GM/VIAL ONE (21:39)
[2024-12-07] MEDS ORDERED: NA CHLORIDE 0.9% 500 ML ONE (21:39)
[2024-12-07 21:53] LABS: Sqamous Epithelial <5 /HPF (None Seen); Urine Culture Reflex Order REFLEXED; Urine Microscopic Reflex YN ORDER UMIC
[2024-12-07 21:56] LABS: Thyroid Stimulating Hormone 2.31 uIU/mL (0.358-3.740)
[2024-12-07 22:03] LABS: Blood Morphology Comment NOT SEEN (NOT SEEN); White Blood Cell Scan OK (OK)
--- NOTE | 2024-12-07 22:19 | RAD REPORT ---
EXAM: CT CHEST, ABDOMEN AND PELVIS WITHOUT CONTRAST CLINICAL INDICATION: pneumonia TECHNIQUE: CT chest, abdomen and pelvis was performed without contrast, as per department protocol. A xial, sagittal and coronal reconstructions were obtained. One or more of the following dose reduction techniques were used: Automated exposure control, adjustment of the mA and/or kV according to patient size, and/or iterative reconstruction. Unless otherwise specified, incidental findings do not require dedicated imaging follow-up. Examination is limited by the lack of intravenous contrast material. COMPARISON: No prior exam. FINDINGS: LUNGS: Mild linear atelectasis is present in both lung bases posteriorly. PLEURA: No pleural effusion. No pneumothorax. MEDIASTINUM AND LYMPH NODES: No mediastinal mass or fluid collection. Normal size mediastinal, hilar, and axillary lymph nodes. OSSEOUS STRUCTURES AND CHEST WALL: Intact. LIVER: Normal in size and contour. No focal lesion or biliary dilatation. Grossly unremarkable gallbl adder. PANCREAS: No mass, ductal dilation, or genaro-pancreatic fluid. SPLEEN: Normal size. No focal lesion. 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 Normal right adren al gland. KIDNEYS: Calculi are present in the right kidney, largest anteriorly measuring 7 mm. No left-sided ca lculi. URINARY BLADDER: 4 mm calculus is seen on the bladder mucosa to the level of the right UVJ. Herrera cat heter decompresses urinary bladder. GASTROINTESTINAL TRACT: No bowel obstruction, free air, significant free fluid or abscess. Sigmoid diverticulosis coli is present without diverticulitis. APPENDIX: Appendix not visualized, but no inflammatory changes in region of appendix. LYMPH NODES: No lymphadenopathy. MUSCULOSKELETAL: No acute or suspicious osseous abnormality. OTHER: Evidence of prior right inguinal hernia repair. Mild fat stranding in the left groin may be re lated to recent vascular access. IMPRESSION: Right nephrolithiasis without hydronephrosis. 4 mm calculus right UVJ along the bladder mucosa.
[2024-12-08] MEDS ORDERED: TAMSULOSIN 0.4 MG SR CAP ONE (00:26)
[2024-12-08] MEDS ORDERED: NA CHLORIDE 0.9% 100 ML ONE (00:27)
[2024-12-08] MEDS ORDERED: PIPERACIL/TAZO 3.375 GM VIAL IV ONE (00:27)
--- NOTE | 2024-12-08 00:39 | EDPHYS ---
Physician Documentation [facility] Name: Ellis Girard Age: 59 yrs Sex: Male : 1965 Arrival Date: 12/07/2024 Time: 19:54 Bed 4 Private MD: ED Physician Reynold Rodriguez HPI: 12/07 20:13 This 59 yrs old Male presents to ER via Unassigned with complaints of Fever . sp4 12/08 00:19 . sp4 02:30 a very pleasant 59-year-old male who is suffering from morbid obesity, sp4 hypercholesterolemia, hypertension, mitral valve prolapse, sleep apnea, chronic back pain, and who recently had 2 coronary artery stents placed on 11/21 2024. Patient was here for NSTEMI and had PCI to obtuse marginal 1 and PCI to left circumflex. With a drug-eluting stents. Patient was started on aspirin 81 mg daily for life and Brilinta 90 mg p.o. twice daily for 12 months. Patient today presents with worsening fevers. 02:33 Family of the patient reports worsening dyspnea over the past 4 days associated with sp4 fevers up to 104.. Patient recently finished course of Augmentin.. 02:34 Patient's home medications include allopurinol 300 mg daily for gout, aspirin 81 mg sp4 daily, Brilinta 90 mg twice a day, Crestor 20 mg daily, Ambien 12.5 mg bedtime, melatonin 10 mg bedtime, meloxicam 15 mg daily, tramadol with acetaminophen as needed pain, montelukast 10 mg daily, additional medications include gabapentin 600 mg twice daily, zolpidem 12.5 mg bedtime, cetirizine 10 mg daily, calcium carbonate p.o. daily, magnesium oxide 500 mg daily, B12 cobalamin 2500 mcg daily, meloxicam 15 mg daily, metformin 500 mg daily, rosuvastatin 20 mg daily, elderberry fruit p.o. daily, potassium gluconate daily, TheraCys appetite 12.5 mg every week, colchicine 0.6 mg twice daily, isosorbide Isordil 20 mg p.o. 3 times daily, Ranexa 500 mg every 12 hours, lisinopril 10 mg daily p.o.. Historical: - Allergies: 12/07 19:54 Iodine; vc1 - PMHx: 19:54 Hypercholesterolemia; Hypertension; mitral valve prolapse; Myocardial infarction; Sleep vc1 Apnea; - PSHx: 19:54 Heart Stents; vertebral replacement; vc1 - Immunization history:: Adult Immunizations unknown. - Infectious Disease History:: Denies. - Family history:: not pertinent. - Social history:: Smoking status: Patient denies any tobacco usage or history of. - Hospitalizations: : Patient was only seen in the emergency department. ROS: 12/08 02:34 Constitutional: Positive for fever, positive for dyspnea, positive for generalized sp4 weakness All other systems are negative, Exam: 02:34 Constitutional: Morbidly obese male, pale appearing, moderate distress, febrile on sp4 arrival. Tachypneic and tachycardic. Head/Face: Normocephalic, atraumatic. Eyes: Pupils equal round and reactive to light, extra-ocular motions intact. Lids and lashes normal. Conjunctiva and sclera are not injected. Cornea within normal limits. Periorbital areas with no swelling, redness, or edema. ENT: Nares patent. No nasal discharge, no septal abnormalities noted. Tympanic membranes are normal and external auditory canals are clear. Oropharynx with no redness, swelling, or masses, exudates, or evidence of obstruction, uvula midline. Mucous membranes moist. Neck: Trachea midline, no thyromegaly or masses palpated, and no cervical lymphadenopathy. Supple, full range of motion without nuchal rigidity, or vertebral point tenderness. Chest/axilla: Normal chest wall appearance and motion. Nontender with no deformity. No lesions are appreciated. Cardiovascular: Regular rate and rhythm with a normal S1 and S2. No gallops, murmurs, or rubs. No pulse deficits. Respiratory: Lungs have equal breath sounds bilaterally, clear to auscultation and percussion. No rales, rhonchi or wheezes noted. No increased work of breathing, no retractions or nasal flaring. Abdomen/GI: Soft, with normal bowel sounds. No distension or tympany. No guarding or rebound. No evidence of tenderness throughout. Back: No spinal tenderness. No costovertebral tenderness. Male : Normal genitalia with no discharge or lesions. Herrera catheter placed during examination. Skin: Warm, dry with normal turgor. Normal color with no rashes, no lesions, and no evidence of cellulitis. MS/ Extremity: Pulses equal, no cyanosis. Neurovascular intact. Full, normal range of motion. Neuro: Awake and alert, GCS 15, oriented to person, place, time, and situation. Cranial nerves II-XII grossly intact. Motor strength 5/5 in all extremities. Sensory grossly intact. Psych: Awake, alert, with orientation to person, place and time. Behavior, mood, and affect are within normal limits 02:34 ECG was reviewed by the Attending Physician. EKG at 2020 sinus tachycardia with sp4 frequent PVCs rate 134. Vital Signs: 12/07 19:54 BP 107 / 60; Pulse 136; Resp 28; Temp 102.7(A); Pulse Ox 98% on 4 lpm NC; Weight 147.5 vc1 kg; 19:54 Height 6 ft. 4 in. ; vc1 21:00 BP 104 / 62; Pulse 127; Resp 26; Pulse Ox 97% ; vc1 22:30 BP 104 / 67; Pulse 117; Resp 24; Pulse Ox 98% ; vc1 23:05 BP 103 / 65; Pulse 116; Resp 15; Temp 100.1; Pulse Ox 99% ; vc1 12/08 00:02 BP 116 / 70; Pulse 106; Resp 22; Pulse Ox 98% ; vc1 01:00 BP 100 / 83; Pulse 107; Resp 19; Pulse Ox 97% ; vc1 02:00 BP 105 / 77; Pulse 109; Resp 19; Pulse Ox 97% on 3 lpm NC; vc1 03:00 BP 109 / 62; Pulse 103; Resp 19; Pulse Ox 99% ; vc1 [place] Coma Score: 02:34 Eye Response: spontaneous(4). Verbal Response: oriented(5). Motor Response: obeys sp4 commands(6). Total: 15. MDM: 12/07 21:20 Medical Screening Exam initiated sp4 12/08 00:11 ED course: FINDINGS: LUNGS: Mild linear atelectasis is present in both lung bases sp4 posteriorly. PLEURA: No pleural effusion. No pneumothorax. MEDIASTINUM AND LYMPH NODES: No mediastinal mass or fluid collection. Normal size mediastinal, hilar, and axillary lymph nodes. OSSEOUS STRUCTURES AND CHEST WALL: Intact. LIVER: Normal in size and contour. No focal lesion or biliary dilatation. Grossly unremarkable gallbladder. PANCREAS: No mass, ductal dilation, or genaro-pancreatic fluid. SPLEEN: Normal size. No focal lesion. 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 Normal right adrenal gland. KIDNEYS: Calculi are present in the right kidney, largest anteriorly measuring 7 mm. No left-sided calculi. URINARY BLADDER: 4 mm calculus is seen on the bladder mucosa to the level of the right UVJ. Herrera catheter decompresses urinary bladder. RADIOLOGY SERVICES REPORT GASTROINTESTINAL TRACT: No bowel obstruction, free air, significant free fluid or abscess. Sigmoid diverticulosis coli is present without diverticulitis. APPENDIX: Appendix not visualized, but no inflammatory changes in region of appendix. LYMPH NODES: No lymphadenopathy. MUSCULOSKELETAL: No acute or suspicious osseous abnormality. OTHER: Evidence of prior right inguinal hernia repair. Mild fat stranding in the left groin may be related to recent vascular access. IMPRESSION: Right nephrolithiasis without hydronephrosis. 4 mm calculus right UVJ along the bladder mucosa.. 00:38 Differential diagnosis: viral Infection, bacterial infection, URI, bronchitis, sp4 pneumonia UTI, gastroenteritis. Data reviewed: vital signs, nurses notes, EMS record, lab test result(s), EKG, radiologic studies, CT scan. Consideration of Admission/Observation Escalation of care including admission/observation considered. Management of patient was discussed with the following: Time Checker: Discussed with Accepting library sales consultant . 02:39 ED course: Patient has sign of significant sepsis. CT has revealed 4 mm right UVJ stone sp4 which is likely source of pyelonephritis with associated sepsis secondary to infected ureteral calculus. Patient at this time warrants [facility] for assessment by urologist and management of pyelonephritis with infected right ureteral calculi. 12/07 20:13 Order name: BNP; Complete Time: 23:04 vc1 12/07 20:13 Order name: Blood Culture Adult (2) vc1 12/07 20:13 Order name: CBC with Diff; Complete Time: 23:04 vc1 12/07 20:13 Order name: CMP; Complete Time: 23:04 vc1 12/07 20:13 Order name: Lactate w/ 2H reflex if indic.; Complete Time: 23:04 vc1 12/07 20:13 Order name: Protime (+inr); Complete Time: 23:04 vc1 12/07 20:13 Order name: Ptt, Activated; Complete Time: 23:04 vc1 12/07 20:13 Order name: Troponin HS; Complete Time: 23:04 vc1 12/07 20:15 Order name: COVID-19 Ag + Flu A+B Ag; Complete Time: 23:04 sp4 12/07 20:15 Order name: TSH; Complete Time: 23:04 sp4 12/07 20:15 Order name: T4 Free; Complete Time: 23:04 sp4 12/07 20:15 Order name: UA Rfx Flynn Cult if indicated; Complete Time: 23:04 sp4 12/07 20:16 Order name: CK; Complete Time: 23:04 sp4 12/07 20:44 Order name: CBC Smear Scan; Complete Time: 23:04 EDMS 12/07 20:58 Order name: Ghost Lactate-NO COLLECT Timer; Complete Time: 23:04 EDMS 12/07 21:57 Order name: Urine Culture EDMS 12/08 00:07 Order name: Lactate Sepsis 2 HR Follow-up; Complete Time: 01:04 EDMS 12/07 20:15 Order name: CT Chest Abdomen Pelvis W/O Contrast; Complete Time: 23:04 sp4 12/07 20:13 Order name: EKG; Complete Time: 20:14 vc1 12/07 20:13 Order name: Accucheck; Complete Time: 21:04 vc1 12/07 20:13 Order name: Cardiac monitoring; Complete Time: 21:04 vc1 12/07 20:13 Order name: EKG - Nurse/Tech; Complete Time: 21:05 vc1 12/07 20:13 Order name: IV Saline Lock - Large Bore; Complete Time: 21:05 vc1 12/07 20:13 Order name: Labs collected and sent; Complete Time: 21:05 vc1 12/07 20:13 Order name: O2 Per Protocol; Complete Time: 21:05 vc1 12/07 20:13 Order name: O2 Sat Monitoring; Complete Time: 21:05 vc1 12/07 20:13 Order name: Vital Signs; Complete Time: 21:05 vc1 12/07 20:16 Order name: Herrera; Complete Time: 21:38 sp4 EC/30 20:20 Rate is 134 beats/min. Rhythm is regular, Sinus tachycardia with Unifocal PVCs. QRS sp4 [place] is Normal. VT interval is normal. QRS interval is normal. QT interval is normal. No Q waves. T waves are Normal. No ST changes noted. Clinical impression: No evidence of ischemia. Interpreted by me. Reviewed by me. Administered Medications: 20:34 Drug: Acetaminophen PO 1000 mg PO once Route: PO; vc1 12/08 01:08 Follow up: Response: No adverse reaction; Marked relief of symptoms; Temperature is vc1 decreased 12/07 20:34 Drug: NS 0.9% IV 1000 ml IV at 1000 ml once; to be given as a bolus over 60 minutes vc1 Route: IV; Rate: 1000 ml; Site: right hand; 22:03 Follow up: IV Status: Completed infusion cp4 20:53 Drug: Cefepime IVPB 2 grams IVPB at 200 ml/hr once over 30 mins; (mix in NS 100 mL) cp4 Route: IVPB; Rate: 200 ml/hr; Infused Over: 30 mins; Site: right hand; 21:22 Follow up: IV Status: Completed infusion cp4 20:53 Drug: Albuterol Inhalation 2.5 mg Inhalation once Route: Inhalation; cp4 21:22 Drug: vancoMYCIN IVPB 2 grams IVPB at calculated rate once Route: IVPB; Rate: cp4 calculated rate; Site: right hand; 23:22 Follow up: IV Status: Completed infusion; IV Intake: 500ml vc1 22:03 Drug: NS 0.9% IV 1000 ml IV at 125 ml/hr once; to be given at 125 ml / hour Route: IV; cp4 Rate: 125 ml/hr; Site: right hand; 12/08 03:13 Follow up: IV Status: Infusion continued upon transfer vc1 00:39 Drug: Piperacillin-Tazobactam IVPB 3.375 grams IVPB once over 60 mins; (mix in NS 100 vc1 mL) Route: IVPB; Infused Over: 60 mins; Site: right hand; 01:39 Follow up: IV Status: Completed infusion; IV Intake: 100ml vc1 00:39 Drug: Flomax PO 0.8 mg PO once Route: PO; vc1 01:08 Follow up: Response: No adverse reaction vc1 00:56 Drug: Gabapentin PO 600 mg PO once Route: PO; vc1 01:07 Follow up: Response: No adverse reaction vc1 00:56 Drug: Zolpidem PO 12.5 mg PO once Route: PO; vc1 01:07 Follow up: Response: No adverse reaction vc1 00:56 Drug: Brilinta - Ticagrelor PO 90 mg PO once; maintenance dose Route: PO; vc1 01:07 Follow up: Response: No adverse reaction vc1 02:03 Drug: NS 0.9% IV 1000 ml IV at 1000 ml once; to be given as a bolus over 60 minutes vc1 Route: IV; Rate: 1000 ml; Site: right hand; 03:12 Follow up: IV Status: Completed infusion; IV Intake: 1000ml vc1 Disposition Summary: 12/08/24 00:38 Transfer Ordered Notes: Transfer Location: [facility] sp4 Reason: Higher level of care sp4 Condition: Stable sp4 Problem: new sp4 Symptoms: have improved sp4 Accepting Physician: [facility] Attending (12/08/24 03:23) vc1 Diagnosis - Severe sepsis without septic shock sp4 - Acute Pyelonephriti, Right UVJ Ureteral Stone , sp4 Discharge Instructions: - Discharge Summary Sheet vc1 Forms: - Family Work Release vc1 - Medication Reconciliation Form sp4 - SBAR form sp4 Critical care time excluding procedures: 00:34 Critical care time: Bedside Care: 36 minutes, Consultation: 12 minutes, Family sp4 Intervention: 12 minutes. Total time: 60 minutes Signatures: Dispatcher [employer] Tamiko Simpson RN RN vc1 Reynold Rodriguez MD MD sp4 Adali Garcia cp4 Corrections: (The following items were deleted from the chart) 12/07 20:14 20:14 PROBNP+C.LAB.BRZ ordered. EDMS EDMS 20:14 20:14 BLOOD CULTURE*+BA.LAB.BRZ ordered. EDMS EDMS 20:14 20:14 CBC+H.LAB.BRZ ordered. EDMS EDMS 20:14 20:14 COMPREHENSIVE METABOLIC PANEL+C.LAB.BRZ ordered. EDMS EDMS 20:14 20:14 LACTATE+C.LAB.BRZ ordered. EDMS EDMS 20:14 20:14 PROTIME (+INR)+COAG.LAB.BRZ ordered. EDMS EDMS 20:14 20:14 PTT, ACTIVATED+COAG.LAB.BRZ ordered. EDMS EDMS 20:14 20:14 Troponin High Sensitivity+C.LAB.BRZ ordered. EDMS EDMS 20:16 20:16 COVID-19 Ag + Flu A+B Ag+I.LAB.BRZ ordered. EDMS EDMS 20:16 20:16 THYROID STIMULAT HORMONE+C.LAB.BRZ ordered. EDMS EDMS 20:16 20:16 T4 FREE+C.LAB.BRZ ordered. EDMS EDMS 12/08 03:23 00:38 [facility] Attending sp4 vc1
--- NOTE | 2024-12-08 00:39 | ER ---
Nurse's Notes [facility] Name: Ellis Girard Age: 59 yrs Sex: Male : 1965 Arrival Date: 12/07/2024 Time: 19:54 Bed 4 Private MD: Diagnosis: Severe sepsis without septic shock;Acute Pyelonephriti, Right UVJ Ureteral Stone , Presentation: 12/07 19:54 Chief complaint: EMS states: SOB for 4 days. vc1 19:54 Coronavirus screen: Client denies travel out of the [place] in the last 14 days. At this vc1 time, the client does not indicate any symptoms associated with coronavirus-19. Ebola Screen: Patient negative for fever greater than or equal to 101.5 degrees Fahrenheit, and additional compatible Ebola Virus Disease symptoms Patient denies exposure to infectious person. Patient denies travel to an Ebola-affected area in the 21 days before illness onset. No symptoms or risks identified at this time. Initial Sepsis Screen: Does the patient meet any 2 criteria? RR > 20 per min. Temp <36.0*C (96.8*F)) or > 38.3*C (100.9*F). HR > 90 bpm. Yes Does the patient have a suspected source of infection? No. Patient's initial sepsis screen is negative. Risk Assessment: Do you want to hurt yourself or someone else? Patient reports no desire to harm self or others. Onset of symptoms was December 03, 2024. Care prior to arrival: None. Activity prior to arrival: None. Mechanism of Injury: No Mechanism of Injury. Transition of care: patient was not received from another setting of care. 19:54 Method Of Arrival: EMS: [facility] vc1 19:54 Acuity: NATACHA 2 vc1 Triage Assessment: 19:54 General: Appears in no apparent distress. uncomfortable, obese, Behavior is calm, vc1 cooperative, appropriate for age. Pain: Denies pain. EENT: No deficits noted. No signs and/or symptoms were reported regarding the EENT system. Neuro: Level of Consciousness is awake, alert, obeys commands, Oriented to person, place, time, situation, Appropriate for age. Cardiovascular: Heart tones S1 S2 present Capillary refill < 3 seconds Patient's skin is warm and dry. Respiratory: Reports shortness of breath at rest Airway is patent Respiratory effort is even, unlabored, Respiratory pattern is symmetrical, tachypnea. GI: Abdomen is obese. : Reports inability to void. Derm: Skin is intact, is healthy with good turgor, Skin is dry, Skin is normal, Skin temperature is warm. Musculoskeletal: Range of motion: intact in all extremities. Historical: - Allergies: 19:54 Iodine; vc1 - PMHx: 19:54 Hypercholesterolemia; Hypertension; mitral valve prolapse; Myocardial infarction; Sleep vc1 Apnea; - PSHx: 19:54 Heart Stents; vertebral replacement; vc1 - Immunization history:: Adult Immunizations unknown. - Infectious Disease History:: Denies. - Family history:: not pertinent. - Social history:: Smoking status: Patient denies any tobacco usage or history of. - Hospitalizations: : Patient was only seen in the emergency department. Screenin:54 [facility] ED Fall Risk Assessment (Adult) History of falling in the last 3 months, vc1 including since admission No falls in past 3 months (0 pts) Confusion or Disorientation No (0 pts) Intoxicated or Sedated No (0 pts) Impaired Gait No (0 pts) Mobility Assist Device Used No (0 pt) Altered Elimination No (0 pt) Score/Fall Risk Level 0 - 2 = Low Risk Oriented to surroundings, Maintained a safe environment, Educated pt \T\ family on fall prevention, incl call for assistance when getting out of bed, Assessed \T\ reinforced patient's understanding of fall precautions, Hourly rounding (assess needs \T\ fall precautionary measures) done. Abuse screen: Denies threats or abuse. Nutritional screening: No deficits noted. Tuberculosis screening: No symptoms or risk factors identified. Assessment: 20:00 General: SEE TRIAGE ASSESSMENT. vc1 23:06 Reassessment: Patient and/or family updated on plan of care and expected duration. Pain vc1 level reassessed. Patient is alert, oriented x 3, equal unlabored respirations, skin warm/dry/pink. Patient states symptoms have improved. 12/08 00:02 Reassessment: Patient appears in no apparent distress at this time. No changes from vc1 previously documented assessment. Patient and/or family updated on plan of care and expected duration. Pain level reassessed. Patient is alert, oriented x 3, equal unlabored respirations, skin warm/dry/pink. 01:00 Reassessment: Patient appears in no apparent distress at this time. No changes from vc1 previously documented assessment. Patient and/or family updated on plan of care and expected duration. Pain level reassessed. Patient is alert, oriented x 3, equal unlabored respirations, skin warm/dry/pink. 02:00 Reassessment: Patient appears in no apparent distress at this time. No changes from vc1 previously documented assessment. Patient and/or family updated on plan of care and expected duration. Pain level reassessed. Patient is alert, oriented x 3, equal unlabored respirations, skin warm/dry/pink. 03:00 Reassessment: Patient appears in no apparent distress at this time. No changes from vc1 previously documented assessment. Patient and/or family updated on plan of care and expected duration. Pain level reassessed. Patient is alert, oriented x 3, equal unlabored respirations, skin warm/dry/pink. Patient denies pain at this time. Patient states feeling better. Vital Signs: 12/07 19:54 BP 107 / 60; Pulse 136; Resp 28; Temp 102.7(A); Pulse Ox 98% on 4 lpm NC; Weight 147.5 vc1 kg; 19:54 Height 6 ft. 4 in. ; vc1 21:00 BP 104 / 62; Pulse 127; Resp 26; Pulse Ox 97% ; vc1 22:30 BP 104 / 67; Pulse 117; Resp 24; Pulse Ox 98% ; vc1 23:05 BP 103 / 65; Pulse 116; Resp 15; Temp 100.1; Pulse Ox 99% ; vc1 12/08 00:02 BP 116 / 70; Pulse 106; Resp 22; Pulse Ox 98% ; vc1 01:00 BP 100 / 83; Pulse 107; Resp 19; Pulse Ox 97% ; vc1 02:00 BP 105 / 77; Pulse 109; Resp 19; Pulse Ox 97% on 3 lpm NC; vc1 03:00 BP 109 / 62; Pulse 103; Resp 19; Pulse Ox 99% ; vc1 [place] Coma Score: 02:34 Eye Response: spontaneous(4). Verbal Response: oriented(5). Motor Response: obeys sp4 commands(6). Total: 15. ED Course: 12/07 20:00 Arm band placed on left wrist. vc1 20:00 Patient has correct armband on for positive identification. Bed in low position. Call vc1 light in reach. Provided Education on: plan of care. ekg monitor on. Pulse ox on. NIBP on. 20:12 Inserted saline lock: 20 gauge in right upper arm, using aseptic technique. Flushed vc1 with 10 mL NS Accessed peripheral vein via ultrasound, utilizing dynamic ultrasound technique. 20:13 Patient arrived in ED. vc1 20:13 Reynold Rodriguez MD is Attending Physician. sp4 20:27 Inserted saline lock: 22 gauge in right Blood collected. Flushed with 10 mL NS. vc1 20:34 Tamiko Berger, ELVA is Primary Nurse. vc1 20:48 Triage completed. vc1 21:43 Herrera cath inserted, using sterile technique, returned tarik urine. Patient tolerated. oe 21:49 CT Chest Abdomen Pelvis W/O Contrast In Process Unspecified. EDMS 12/08 01:10 Initiated transfer with [facility] spoke with Abbi. vk 01:16 per [facility] Abbi Noe RN [facility] Patient was auto accepted in system to Dr. Kaur \T\[id number] vk accepting admin Abbi noe \T\0116 to 1423 report # [phone]. 03:13 No provider procedures requiring assistance completed. Patient transferred, IV remains vc1 in place. Administered Medications: 12/07 20:34 Drug: Acetaminophen PO 1000 mg PO once Route: PO; vc1 12/08 01:08 Follow up: Response: No adverse reaction; Marked relief of symptoms; Temperature is vc1 decreased 12/07 20:34 Drug: NS 0.9% IV 1000 ml IV at 1000 ml once; to be given as a bolus over 60 minutes vc1 Route: IV; Rate: 1000 ml; Site: right hand; 22:03 Follow up: IV Status: Completed infusion cp4 20:53 Drug: Cefepime IVPB 2 grams IVPB at 200 ml/hr once over 30 mins; (mix in NS 100 mL) cp4 Route: IVPB; Rate: 200 ml/hr; Infused Over: 30 mins; Site: right hand; 21:22 Follow up: IV Status: Completed infusion cp4 20:53 Drug: Albuterol Inhalation 2.5 mg Inhalation once Route: Inhalation; cp4 21:22 Drug: vancoMYCIN IVPB 2 grams IVPB at calculated rate once Route: IVPB; Rate: cp4 calculated rate; Site: right hand; 23:22 Follow up: IV Status: Completed infusion; IV Intake: 500ml vc1 22:03 Drug: NS 0.9% IV 1000 ml IV at 125 ml/hr once; to be given at 125 ml / hour Route: IV; cp4 Rate: 125 ml/hr; Site: right hand; 12/08 03:13 Follow up: IV Status: Infusion continued upon transfer vc1 00:39 Drug: Piperacillin-Tazobactam IVPB 3.375 grams IVPB once over 60 mins; (mix in NS 100 vc1 mL) Route: IVPB; Infused Over: 60 mins; Site: right hand; 01:39 Follow up: IV Status: Completed infusion; IV Intake: 100ml vc1 00:39 Drug: Flomax PO 0.8 mg PO once Route: PO; vc1 01:08 Follow up: Response: No adverse reaction vc1 00:56 Drug: Gabapentin PO 600 mg PO once Route: PO; vc1 01:07 Follow up: Response: No adverse reaction vc1 00:56 Drug: Zolpidem PO 12.5 mg PO once Route: PO; vc1 01:07 Follow up: Response: No adverse reaction vc1 00:56 Drug: Brilinta - Ticagrelor PO 90 mg PO once; maintenance dose Route: PO; vc1 01:07 Follow up: Response: No adverse reaction vc1 02:03 Drug: NS 0.9% IV 1000 ml IV at 1000 ml once; to be given as a bolus over 60 minutes vc1 Route: IV; Rate: 1000 ml; Site: right hand; 03:12 Follow up: IV Status: Completed infusion; IV Intake: 1000ml vc1 Medication: 12/07 20:51 VIS not applicable for this client. vc1 Intake: 23:22 IV: 500ml; Total: 500ml. vc1 12/08 01:39 IV: 100ml; Total: 600ml. vc1 03:12 IV: 1000ml; Total: 1600ml. vc1 Outcome: 00:38 ER care complete, transfer ordered by MD. barnes 03:14 Transferred by [facility] to [facility], Transfer form completed. vc1 X-rays sent w/ patient. 03:14 Condition: stable 03:23 Patient left the ED. vc1 Signatures: Dispatcher [employer] EDMS Beni Edwards Vanessa, RN RN vc1 Reynold Rodriguez MD MD sp4 Adali Garcia cp4 [place] Corrections: (The following items were deleted from the chart) 01:11 01:06 Initiated transfer with [facility] vk vk
[2024-12-08] MEDS ORDERED: GABAPENTIN 300 MG CAP ONE (00:45)
[2024-12-08] MEDS ORDERED: ZOLPIDEM TARTRATE 5 MG TABLET ONE (00:46)
[2024-12-08] MEDS ORDERED: TICAGRELOR 90 MG TABLET PO ONE (00:46)
[2024-12-08] MEDS ORDERED: ZOLPIDEM TARTRATE 10 MG TABLET ONE (00:46)
[2024-12-08] MEDS ORDERED: ATORVASTATIN 40 MG TAB ONE (00:51)
[2024-12-08] MEDS ORDERED: NA CHLORIDE 0.9% 1,000 ML ONE (01:54)
[2024-12-08 03:31] VITALS: TEMP 100.1
[2024-12-08 03:35] VITALS: BP 109/62; O2SAT 99
== END 2024-12-08 03:23 | disposition short-term general hospital (02) ==
LOC: ER 19:54
DX: N10 Acute pyelonephritis (principal); R65.20 Severe sepsis without septic shock; N20.1 Calculus of ureter; E78.00 Pure hypercholesterolemia, unspecified; I10 Essential (primary) hypertension; E66.01 Morbid (severe) obesity due to excess calories; Z79.82 Long term (current) use of aspirin; Z95.818 Presence of other cardiac implants and grafts; Z11.52 Encounter for screening for COVID-19
CPT/HCPCS: 96365; 96367; 96361; 93005; 87040 ×2; 87088; 85025; 81001; 87086; 36415; 82550; 85610; 83605 ×2; 85730; 84443; 84484; 84439; 80053; 83880; 71250; 74176; 51702; 99285; 87428; J2543; J7613; J3373; J0692; J7040; J7030 ×3